=== PATIENT | female | born 1990 | race Two or more races ===

== ENCOUNTER 2020-02-24 12:00 | Outpatient (RCR) | payer MEDICAID, SELFPAY | END 2020-04-06 08:32 | disposition other institution (70) | LOC: HO.PT 12:00 | PROVIDERS: PCP Family Medicine; Visit Provider Physician Assistant | DX: M51.26 Other intervertebral disc displacement, lumbar region (principal) | CPT/HCPCS: 97110; 97112; 97161; 97530 ==

== ENCOUNTER 2020-05-06 20:09 | Emergency (ER) | payer MEDICAID, SELFPAY ==
--- NOTE | ~2020-05-06 | XR_ITS ---
EXAMINATION: XR HAND, RIGHT CLINICAL INFORMATION: Right thumb pain COMPARISON: None TECHNIQUE: PA, lateral, and oblique views of the right hand. FINDINGS: There is no fracture or dislocation. Alignment is anatomic. Joint spaces are maintained. The soft tissues are unremarkable. No radiopaque foreign body. XR/XR hand RT min 3V IMPRESSION: Normal right hand.
[2020-05-06 20:13] VITALS: BP 126/85; PULSE 84; RESP 18; TEMP 36.8; O2SAT 100; BMI 25.6
--- NOTE | 2020-05-06 22:21 | ED_ITS ---
HPI - General Adult General Chief complaint: General Medical Stated complaint: finger pain Time Seen by Provider: 05/06/20 22:11 Source: patient Mode of arrival: ambulatory Limitations: no limitations History of Present Illness HPI narrative: Patient comes to the emergency room complaining of right thumb pain for a week. Patient states she fell, landed on her thumb, it has been hurting since then, worse with movement. Patient denies redness, no fever, no numbness MD complaint: Thumb pain Related Data Allergies Allergy/AdvReac Type Severity Reaction Status Date / Time aspirin [Aspirin] Allergy Intermediate GI UPSET Unverified 11/26/19 17:04 cinnamon [Cinnamon] Allergy Unknown RASH ITCH Unverified 11/26/19 17:04 naproxen [From NAPROSYN] AdvReac Unknown GI UPSET Unverified 11/26/19 17:04 cinnamon Allergy Unknown rash Uncoded 08/20/18 00:00 Motrin Allergy Unknown Uncoded 05/27/19 00:00 Review of Systems Review of Systems: Constitutional : No Weight loss, No Fever, No Chills, No Night Sweats, No Fatigue, No Malaise ENT/Mouth : No Hearing loss, No Ear Pain, No Nasal Congestion, No Sinus Pain, No Hoarseness, No sore throat, No Rhinorrhea, No Swallowing Difficulty Eyes: No Eye Pain, No Swelling, No Redness, No Foreign Body, No Discharge, No Vision Changes Cardiovascular : No Chest Pain, No SOB, No Dyspnea on Exertion, No Orthopnea, No Edema, No Palpitations Respiratory : No Cough, No Sputum, No Wheezing, No Smoke Exposure, No Dyspnea Gastrointestinal : No Nausea, No Vomiting, No Diarrhea, No Constipation, No abdominal Pain, No Hematochezia, No Melena Genitourinary : no irregular bleeding, No Dysuria, No Urinary Frequency, No Hematuria, No Urinary Incontinence, No Urgency, No Flank Pain, No Urinary Flow Changes, No Hesitancy Musculoskeletal : Right thumb pain, No Myalgias, No Joint Swelling Skin : No Skin Lesions, No rash Neuro : No Weakness, No Numbness, No Paresthesias, No Loss of Consciousness, No Dizziness, No Headache Psych : No Anxiety/Panic, No Depression, No SI/HI/AH/VH, No Social Issues, Heme/Lymph: No Bruising, No Bleeding,No Lymphadenopathy Endocrine : No Polyuria, No Polydipsia, No Temperature Intolerance [facility] Social History Social History Advance Directives: No Advance Directives Information Provided: No Physical Exam Vital Signs: Vital Signs: Last Vital Signs Temp 98.2 F 05/06/20 20:13 Pulse 84 05/06/20 20:13 Resp 18 05/06/20 20:13 BP 126/85 05/06/20 20:13 Pulse Ox 100 05/06/20 20:13 Body Mass Index 25.6 Appearance: Alert. Oriented X3. No acute distress. Eyes: Pupils equal, round and reactive to light. ENT: Pharynx normal. Neck: Normal inspection. Neck supple. No lymph nodes noted. No crepitus CVS: Normal heart rate and rhythm. Pulses normal. Normal S1 and S2 Respiratory: No respiratory distress. Breath sounds normal. No Wheezing. No ra les Abdomen: Soft and nontender. No rigidity. No distention. good BS x4 Skin: Skin warm and dry. Normal skin color. Normal skin turgor. Extremities: No lower extremity edema. Patient is able to flex and extend all fingers, patient does have right snuffbox tenderness. Neuro: Oriented X 3. No motor deficit. No sensory deficit. Moving all extermities. No slurred speech. Course Course Course Narrative: Patient's x-ray is negative, however she does have right snuffbox tenderness. I discussed with the patient to follow-up with her primary care physician and Orthopedics. Patient was given a thumb spica splint. Patient may need x-rays again in a few days. Medical Decision Making Imaging Data Hand x-ray: Radiologist's impression: FINDINGS: There is no fracture or dislocation. Alignment is anatomic. Joint spaces are maintained. The soft tissues are unremarkable. No radiopaque foreign body. XR/XR hand RT min 3V IMPRESSION: Normal right hand. Discharge Plan Discharge Clinical Impression: Pain of right thumb Patient Disposition: Home, Self-Care Instructions: Finger Sprain (ED) Additional Instructions: Please follow-up with your primary care physician tomorrow. If you have any worsening or new symptoms, please return to the emergency room or call 911 Referrals: Lindsay Espitia PA-C [Physician Irrigationist] - 2 days
== END 2020-05-06 22:48 | disposition home or self-care (01) ==
PROVIDERS: Emergency Provider Emergency Medicine; PCP Family Medicine
DX: M79.644 Pain in right finger(s) (principal)
CPT/HCPCS: 29130; 73130; 99283

== ENCOUNTER 2020-05-16 12:43 | Outpatient (REF) | payer MEDICAID, SELFPAY ==
--- NOTE | ~2020-05-16 | XR_ITS ---
EXAMINATION: XR WRIST, RIGHT CLINICAL INFORMATION: Pain in the right wrist COMPARISON: 05/06/2020 TECHNIQUE: 4 views of the right wrist FINDINGS: There is no fracture or dislocation. The carpal rows are well aligned. Joint spaces are maintained. The soft tissues are unremarkable. XR/XR wrist RT w scaphoid IMPRESSION: Unremarkable right wrist radiographs.
== END 2020-05-16 12:44 | disposition home or self-care (01) ==
LOC: HO.HOSX 12:43
PROVIDERS: PCP Family Medicine; Visit Provider Orthopaedic Surgery
DX: M25.531 Pain in right wrist (principal); M79.644 Pain in right finger(s)
CPT/HCPCS: 73110; 99202

== ENCOUNTER 2020-06-06 12:46 | Outpatient (REF) | payer MEDICAID, SELFPAY ==
--- NOTE | ~2020-06-06 | XR_ITS ---
EXAMINATION: XR HAND, RIGHT CLINICAL INFORMATION: Pain COMPARISON: 05/06/2020 TECHNIQUE: PA, lateral, and oblique views of the right hand. FINDINGS: The bones and soft tissues are normal. No fracture. Alignment is anatomic. Joint spaces are maintained. No erosions or soft tissue calcifications. XR/XR hand RT min 3V IMPRESSION: Normal right hand.
== END 2020-06-06 12:47 | disposition home or self-care (01) ==
LOC: HO.HOSX 12:46
PROVIDERS: PCP Family Medicine; Visit Provider Orthopaedic Surgery
DX: M25.531 Pain in right wrist (principal); M79.644 Pain in right finger(s)
CPT/HCPCS: 73130; 99212

== ENCOUNTER 2021-12-14 16:21 | Outpatient (REF) | payer MEDICAID, SELFPAY ==
--- NOTE | ~2021-12-14 | MR_ITS ---
EXAMINATION: MR LUMBAR SPINE WITHOUT AND WITH CONTRAST CLINICAL INFORMATION: L4-L5 discectomy with severe worsening low back pain. COMPARISON: Lumbar spine MRI 08/05/2019. TECHNIQUE: MRI of the lumbar spine was obtained using routine sequences without and with intravenous contrast. A total of 6.5 mL Gadavist was intravenously administered. FINDINGS: The lumbar vertebral bodies maintain normal heights and alignment. There is moderate disc height loss at L4-L5 with degenerative endplate changes including mild amount of marrow edema. The remainder the disc heights appear well preserved. The distal spinal cord appears normal. The conus medullaris terminates normally at the L1 level. There is no abnormal cauda equina nerve root enhancement. The extraspinal soft tissues are within normal limits. SPINAL LEVELS: L1-L2: No posterior disc abnormality. No spinal canal or neural foraminal stenosis. L2-L3: No posterior disc abnormality. No spinal canal or neural foraminal stenosis. L3-L4: Mild disc bulging. No spinal canal or neural foraminal stenosis. L4-L5: Disc bulging with broad-based central protrusion causing focal indentation of the ventral thecal sac with compression of the bilateral traversing L5 nerve roots in the subarticular zones. Mild to moderate spinal canal stenosis. Bilateral facet arthropathy. Mild narrowing of the neural foramina without foraminal nerve root compression. L5-S1: Disc bulging with moderate facet arthropathy. No spinal canal or neural foraminal stenosis. MR/MR lumbar spine wo/w con IMPRESSION: At L4-L5 there is recurrent broad-based central protrusion causing focal indentation on the ventral thecal sac and compression of the bilateral traversing L5 nerve roots in the subarticular zones. Mild disc bulging seen at L3-L4 and L5-S1 without spinal canal stenosis or nerve root compression.
== END 2021-12-14 16:22 | disposition home or self-care (01) ==
LOC: HO.MRI 16:21
PROVIDERS: PCP Family Medicine; Visit Provider Family Medicine
DX: M54.50 Low back pain, unspecified (principal)
CPT/HCPCS: 72158; A9585

== ENCOUNTER 2022-07-10 11:44 | Emergency (ER) | payer MEDICAID, SELFPAY ==
--- NOTE | ~2022-07-10 | US_ITS ---
EXAMINATION: US ABDOMEN LIMITED CLINICAL INFORMATION: Right upper quadrant pain. COMPARISON: Ultrasound of abdomen 09/29/2008 TECHNIQUE: Real-time imaging of the right upper quadrant abdominal viscera. FINDINGS: PANCREAS: Normal. LIVER: Normal. The liver is normal in size. The liver contour is normal. Parenchymal echogenicity is normal. No focal hepatic lesion. There is no intrahepatic biliary duct dilatation seen. GALLBLADDER: There is a 3 mm polyp in the fundus of uterus. No gallstone or sludge within the gallbladder. No gallbladder wall thickening or pericholecystic fluid. Negative ultrasound Gloria's sign. COMMON BILE DUCT: Normal in caliber measuring 0.2 cm in diameter. RIGHT KIDNEY: Normal. No hydronephrosis. No renal calculi or focal parenchymal lesions. The kidney measures 9.9 cm in maximum dimension. FREE FLUID: None. US/US abdomen limited IMPRESSION: No acute abnormality. No gallstone or acute change of gallbladder wall. There is a 3 mm polyp in the fundus of gallbladder.
[2022-07-10 11:50] VITALS: BP 125/85; PULSE 63; O2SAT 98
[2022-07-10 11:52] VITALS: BP 110/69; PULSE 83; RESP 18; TEMP 36.9; O2SAT 98; BMI 25.8
--- NOTE | 2022-07-10 11:52 | ED.NAVMDI ---
HPI - Nausea/Vomiting/Diarrhea General Chief complaint: Nausea/Vomiting/Diarrhea <WOODY Wen Last Filed: 07/10/22 11:55> Stated complaint: nausea vomiting x 2 days per ems <WOODY Wen Last Filed: 07/10/22 11:55> Time Seen by Provider: 07/10/22 14:12 <WOODY Wen Last Filed: 07/10/22 11:55> Source: patient <WOODY Verma Last Filed: 07/10/22 18:40> Mode of arrival: ambulatory <WOODY Verma Last Filed: 07/10/22 18:40> History of Present Illness HPI Narrative: 31-year-old female with no significant past medical history presenting to the ED complaining of epigastric abdominal pain, nausea, vomiting, and inability to tolerate p.o. x 2 days. Pain described as burning. Reports decreased urine output. Denies known fever, diarrhea, constipation, dysuria/hematuria, recent travel, suspicious food intake, recent antibiotics <WOODY Verma Last Filed: 07/10/22 18:40> MD elicited complaint: nausea, vomiting and abdominal pain <WOODY Verma Last Filed: 07/10/22 18:40> Related Data Home medications: Home Medications Medication Instructions Recorded Confirmed oxycodone 5 mg capsule 5 mg PO BID PRN 05/16/20 Previous Rx's Medication Instructions Recorded ondansetron 4 mg disintegrating 4 mg PO Q8H PRN nausea and 07/10/22 tablet vomiting #10 tabs <WOODY Wen Last Filed: 07/10/22 11:55> Allergies/Adverse reactions: Allergies Allergy/AdvReac Type Severity Reaction Status Date / Time aspirin [Aspirin] Allergy Intermediate GI UPSET Verified 05/16/20 13:15 cinnamon [Cinnamon] Allergy Unknown RASH ITCH Verified 05/16/20 13:15 naproxen [From NAPROSYN] AdvReac Unknown GI UPSET Verified 05/16/20 13:15 cinnamon Allergy Unknown rash Uncoded 08/20/18 00:00 Motrin Allergy Unknown nausea Uncoded 05/16/20 13:15 <WOODY Wen Last Filed: 07/10/22 11:55> Review of Systems Review of Systems: Constitutional: No Fever, + Chills, No Night Sweats, No Fatigue, No Malaise ENT/Mouth: No Ear Pain, No sore throat, No Rhinorrhea, No Swallowing Difficulty Eyes: No Eye Pain, No Swelling, No Redness, No Vision Changes Cardiovascular: No Chest Pain, No SOB Respiratory: No Cough, No Sputum, No Dyspnea Gastrointestinal: + Nausea, + Vomiting, No Diarrhea, No Constipation, + Abdominal pain Genitourinary: No irregular bleeding, No Dysuria, No Urinary Frequency, No Hematuria, No Urinary Incontinence/retention, No Flank Pain Musculoskeletal: No joint pain, No Myalgias, No Joint Swelling Skin: No Skin Lesions, No rash Neuro: No Weakness, No Numbness, No Dizziness, No Headache <WOODY Verma - Last Filed: 07/10/22 18:40> Yes all other systems are reviewed and are negative <WOODY Verma - Last Filed: 07/10/22 18:40> Constitutional: Constitutional: Reports as per HPI <WOODY Verma - Last Filed: 07/10/22 18:40> [facility], [facility] Past Medical History Attestation statement: The following information was validated with the patient. 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 <WOODY Wen - Last Filed: 07/10/22 11:55> Physical Exam Vital Signs: Vital Signs: Last Vital Signs Temp 98.5 F 07/10/22 11:52 Pulse 83 07/10/22 11:52 Resp 18 07/10/22 11:52 BP 110/69 07/10/22 11:52 Pulse Ox 98 07/10/22 11:52 O2 Del Method Room Air 07/10/22 11:52 BMI result Body Mass Index 25.8 <WOODY Wen - Last Filed: 07/10/22 11:55> Vital Signs: Last Vital Signs Temp 98.5 F 07/10/22 11:52 Pulse 83 07/10/22 11:52 Resp 18 07/10/22 11:52 BP 110/69 07/10/22 11:52 Pulse Ox 98 07/10/22 11:52 O2 Del Method Room Air 07/10/22 11:52 BMI result Body Mass Index 25.8 <WOODY Verma Last Filed: 07/10/22 18:40> Const: General: cooperative, healthy appearing and no acute distress <WOODY Verma Last Filed: 07/10/22 18:40> Orientation/consciousness: patient oriented x3 <WOODY Verma Last Filed: 07/10/22 18:40> Limitations: no limitations <WOODY Verma Last Filed: 07/10/22 18:40> HEENT: Head: Yes normal to inspection and Yes atraumatic <WOODY Verma Last Filed: 07/10/22 18:40> Ears: hearing grossly normal bilaterally <WOODY Verma Last Filed: 07/10/22 18:40> General nose exam: Normal external nose present <WOODY Verma Last Filed: 07/10/22 18:40> Face and sinus: Yes normal facial exam <WOODY Verma Last Filed: 07/10/22 18:40> Eyes: General: appearance normal, both eyes and all related structures <WOODY Verma Last Filed: 07/10/22 18:40> EOM: EOMs intact bilaterally <WOODY Verma Last Filed: 07/10/22 18:40> Neck: Neck: Yes normal visual inspection and Yes no meningeal signs <WOODY Verma Last Filed: 07/10/22 18:40> Resp: Effort & Inspection: normal respiratory effort and no respiratory distress <WOODY Verma Last Filed: 07/10/22 18:40> Auscultation: clear to auscultation bilaterally <WOODY Verma Last Filed: 07/10/22 18:40> Cardio: Rate: regular rate <WOODY Verma Last Filed: 07/10/22 18:40> Heart sounds: S1 normal heart sound present and S2 normal heart sound present <WOODY Verma - Last Filed: 07/10/22 18:40> GI: Inspection: Yes normal to inspection <WOODY Verma - Last Filed: 07/10/22 18:40> Palpation (GI): Soft to palpation, Tenderness to palpation present (GI) in the epigastrum and in the RUQ; with no rebound tenderness, no guarding and not rigid <WOODY Verma - Last Filed: 07/10/22 18:40> : General: Yes no CVA tenderness <WOODY Verma - Last Filed: 07/10/22 18:40> Back/Spine/Pelvis: Back: no CVA tenderness <WOODY Verma - Last Filed: 07/10/22 18:40> Skin: Rashes: no rashes <WOODY Verma - Last Filed: 07/10/22 18:40> Wounds: no wounds <WOODY Verma - Last Filed: 07/10/22 18:40> Neuro: General: patient oriented x3, tone normal and no meningeal signs <WOODY Verma - Last Filed: 07/10/22 18:40> Gait exam (Neuro): Normal gait present <WOODY Verma - Last Filed: 07/10/22 18:40> Extrem: General: Yes normal to inspection <WOODY Vemra - Last Filed: 07/10/22 18:40> Course Course Course Narrative: RME - 31 yo female with history of tubal ligation presents to the ER from EMS for evaluation of nausea, vomiting and epigastric pain for the last 2 days. Unable to tolerate PO. Pain is 8/10 and described as burning. She reports no UOP since yesterday. Plan: basic labs and IVF, anti-emetics and GI cocktail <WOODY Wen Last Filed: 07/10/22 11:55> RME - 31 yo female with history of tubal ligation presents to the ER from EMS for evaluation of nausea, vomiting and epigastric pain for the last 2 days. Unable to tolerate PO. Pain is 8/10 and described as burning. She reports no UOP since yesterday. Plan: basic labs and IVF, anti-emetics and GI cocktail -1638--no leukocytosis. Labs otherwise unremarkable US abdomen limited IMPRESSION: No acute abnormality. No gallstone or acute change of gallbladder wall. There is a 3 mm polyp in the fundus of gallbladder. > on re-evaluation patient reports Nimisha Poppy made her nauseous, however, was able to tolerate p.o. water and crackers. States still unable to provide urine. Bladder scan with 188 cc >> will give additional 500 cc IVF and re-evaluate -hCG negative -1900--ED care transferred to WOODY Salas pending UA, re-evaluation, and anticipated DC home <WOODY Verma - Last Filed: 07/10/22 18:40> Medications Administered Discontinued Medications Generic Name Dose Route Start Last Admin Trade Name Freq PRN Reason Stop Dose Admin Al Hydroxide/Mg Hydroxide 30 ml 07/10/22 16:06 07/10/22 16:33 Magnesium Hydrox/Alum Hydrox 30 Ml Oral.Susp PO 07/10/22 16:07 30 ml ONCE ONE Administration Famotidine 20 mg 07/10/22 16:06 07/10/22 16:31 Famotidine/Pf 20 Mg/2 Ml Vial IVPUSH 07/10/22 16:07 20 mg ONCE ONE Administration Sodium Chloride 1,000 mls @ 999 mls/hr 07/10/22 12:00 07/10/22 16:01 Ns IVCONT 07/10/22 13:00 Infused .Q1H1M MARTINEZ Infusion Sodium Chloride 1,000 mls @ 999 mls/hr 07/10/22 16:15 07/10/22 17:59 Ns IV 07/10/22 17:15 Infused .Q1H1M MARTINEZ Infusion Sodium Chloride 500 mls @ 999 mls/hr 07/10/22 17:45 07/10/22 18:00 Ns IV 07/10/22 18:15 999 mls/hr .Q31M MARTINEZ Administration Ketorolac Tromethamine 15 mg 07/10/22 16:06 07/10/22 16:31 Ketorolac Tromethamine 15 Mg/Ml Vial IVPUSH 07/10/22 16:07 15 mg ONCE ONE Administration Metoclopramide HCl 10 mg 07/10/22 18:02 07/10/22 18:13 Metoclopramide Hcl 10 Mg/2 Ml Vial IVPUSH 07/10/22 18:03 10 mg ONCE ONE Administration Ondansetron HCl 4 mg 07/10/22 11:55 07/10/22 14:42 Ondansetron Hcl 4 Mg/2 Ml Vial IVPUSH 07/10/22 11:56 4 mg ONCE ONE Administration <WOODY Wen - Last Filed: 07/10/22 11:55> Medications Administered Discontinued Medications Generic Name Dose Route Start Last Admin Trade Name Genet PRN Reason Stop Dose Admin Al Hydroxide/Mg Hydroxide 30 ml 07/10/22 16:06 07/10/22 16:33 Magnesium Hydrox/Alum Hydrox 30 Ml Oral.Susp PO 07/10/22 16:07 30 ml ONCE ONE Administration Famotidine 20 mg 07/10/22 16:06 07/10/22 16:31 Famotidine/Pf 20 Mg/2 Ml Vial IVPUSH 07/10/22 16:07 20 mg ONCE ONE Administration Sodium Chloride 1,000 mls @ 999 mls/hr 07/10/22 12:00 07/10/22 16:01 Ns IVCONT 07/10/22 13:00 Infused .Q1H1M MARTINEZ Infusion Sodium Chloride 1,000 mls @ 999 mls/hr 07/10/22 16:15 07/10/22 17:59 Ns IV 07/10/22 17:15 Infused .Q1H1M MARTINEZ Infusion Sodium Chloride 500 mls @ 999 mls/hr 07/10/22 17:45 07/10/22 18:00 Ns IV 07/10/22 18:15 999 mls/hr .Q31M MARTINEZ Administration Ketorolac Tromethamine 15 mg 07/10/22 16:06 07/10/22 16:31 Ketorolac Tromethamine 15 Mg/Ml Vial IVPUSH 07/10/22 16:07 15 mg ONCE ONE Administration Metoclopramide HCl 10 mg 07/10/22 18:02 07/10/22 18:13 Metoclopramide Hcl 10 Mg/2 Ml Vial IVPUSH 07/10/22 18:03 10 mg ONCE ONE Administration Ondansetron HCl 4 mg 07/10/22 11:55 07/10/22 14:42 Ondansetron Hcl 4 Mg/2 Ml Vial IVPUSH 07/10/22 11:56 4 mg ONCE ONE Administration <WOODY Verma Last Filed: 07/10/22 18:40> Medical Decision Making Medical Decision Making MDM Narrative: 31-year-old female with no significant past medical history presenting to the ED complaining of epigastric abdominal pain, nausea, vomiting, and inability to tolerate p.o. x 2 days. On exam vital signs stable, NAD, nontoxic appearing, abdomen soft with epigastric/RUQ tenderness, no rebound or guarding, no CVAT. Concern for cholecystitis/lithiasis vs biliary colic vs pancreatitis vs GERD/gastritis. Lower suspicion for ACS. Rule out dehydration/metabolic abnormalities. Low suspicion for appendicitis/diverticulitis or renal stone or ovarian pathology at this time Plan: Labs, UA, IVF, abdomen ultrasound, antiemetics, IVF, p.o. challenge Please refer to course for remaining clinical decision making, interpretation of labs/imaging results, and discussions with consultants and/or family members. <WOODY Verma Last Filed: 07/10/22 18:40> Differential Diagnosis Differential Diagnoses: The differential diagnosis associated with the presentation includes <WOODY Verma - Last Filed: 07/10/22 18:40> As above <WOODY Verma - Last Filed: 07/10/22 18:40> Admission/Observation Consideration of admission/observation: Escalation of care including admission/observation considered <WOODY Verma - Last Filed: 07/10/22 18:40> Lab Data [facility] Lab Attestation statement: I reviewed the patient's lab results. <WOODY Verma Last Filed: 07/10/22 18:40> Result Diagrams: 07/10/22 13:57 07/10/22 13:57 <WOODY Wen - Last Filed: 07/10/22 11:55> Labs: Lab Results 07/10/22 07/10/22 Range/Units 13:57 13:57 WBC 7.6 (4.8-10.8) X10*3/uL RBC 4.12 L (4.20-5.50) X10*6/uL Hgb 12.6 (12.0-16.0) g/dl Hct 38.1 (37.0-47.0) % MCV 92.5 (80.0-98.0) fL MCH 30.6 (27.0-33.0) pg MCHC 33.1 (31.0-35.0) g/dl RDW 14.1 (11.0-16.0) % Plt Count 317 (160-400) X10*3/uL MPV 9.3 L (9.4-12.3) fL Immature Gran % (Auto) 0.3 (0.0-0.4) % Neut % (Auto) 69.5 (45-73) % Lymph % (Auto) 23.4 (20-40) % [place] % (Auto) 6.5 (2-11) % Eos % (Auto) 0.0 (0-4) % Baso % (Auto) 0.3 (0-2) % Lymph # (Auto) 1.8 (1.2-4.9) X10*3/uL [place] # (Auto) 0.5 (0.1-1.2) X10*3/uL Eos # (Auto) 0.0 (0.0-0.4) X10*3/uL Baso # (Auto) 0.0 (0.0-0.2) X10*3/uL Abs Immat Gran (auto) 0.02 (0.00-0.03) X10*3/uL Absolute Neuts (auto) 5.3 (2.0-8.3) x10*3/uL Absolute Nucleated RBC 0.000 (0.0-0.012) X10*3/uL Nucleated RBC % (auto) 0.0 (0.0-0.2) /100WBC Sodium 141 (135-145) mmol/L Potassium 4.0 (3.3-5.1) mmol/L Chloride 108 (96-108) mmol/L Carbon Dioxide 26 (22-29) mmol/L Anion Gap 11 L (12-20) BUN 9 (9-16) mg/dL Creatinine 0.72 (0.5-1.4) mg/dL Estim Creat Clear Calc 97.6 Estimated GFR > 60 Random Glucose 108 (60-115) mg/dL Calcium 9.6 (8.4-10.2) mg/dL Magnesium 2.1 (1.6-2.6) mg/dL Total Bilirubin 0.9 (0.0-1.0) mg/dL Direct Bilirubin 0.3 (0.0-0.5) mg/dL AST 16 (5-31) U/L ALT 14 (0-31) U/L Alkaline Phosphatase 45 (39-117) U/L Total Protein 7.2 (6.5-8.0) g/dL Albumin 4.3 (3.5-5.0) g/dL Lipase 70 (8-78) U/L Beta HCG, Quant < 2 mIU/mL <WOODY Wen - Last Filed: 07/10/22 11:55> Lab Results 07/10/22 07/10/22 Range/Units 13:57 13:57 WBC 7.6 (4.8-10.8) X10*3/uL RBC 4.12 L (4.20-5.50) X10*6/uL Hgb 12.6 (12.0-16.0) g/dl Hct 38.1 (37.0-47.0) % MCV 92.5 (80.0-98.0) fL MCH 30.6 (27.0-33.0) pg MCHC 33.1 (31.0-35.0) g/dl RDW 14.1 (11.0-16.0) % Plt Count 317 (160-400) X10*3/uL MPV 9.3 L (9.4-12.3) fL Immature Gran % (Auto) 0.3 (0.0-0.4) % Neut % (Auto) 69.5 (45-73) % Lymph % (Auto) 23.4 (20-40) % [place] % (Auto) 6.5 (2-11) % Eos % (Auto) 0.0 (0-4) % Baso % (Auto) 0.3 (0-2) % Lymph # (Auto) 1.8 (1.2-4.9) X10*3/uL [place] # (Auto) 0.5 (0.1-1.2) X10*3/uL Eos # (Auto) 0.0 (0.0-0.4) X10*3/uL Baso # (Auto) 0.0 (0.0-0.2) X10*3/uL Abs Immat Gran (auto) 0.02 (0.00-0.03) X10*3/uL Absolute Neuts (auto) 5.3 (2.0-8.3) x10*3/uL Absolute Nucleated RBC 0.000 (0.0-0.012) X10*3/uL Nucleated RBC % (auto) 0.0 (0.0-0.2) /100WBC Sodium 141 (135-145) mmol/L Potassium 4.0 (3.3-5.1) mmol/L Chloride 108 (96-108) mmol/L Carbon Dioxide 26 (22-29) mmol/L Anion Gap 11 L (12-20) BUN 9 (9-16) mg/dL Creatinine 0.72 (0.5-1.4) mg/dL Estim Creat Clear Calc 97.6 Estimated GFR > 60 Random Glucose 108 (60-115) mg/dL Calcium 9.6 (8.4-10.2) mg/dL Magnesium 2.1 (1.6-2.6) mg/dL Total Bilirubin 0.9 (0.0-1.0) mg/dL Direct Bilirubin 0.3 (0.0-0.5) mg/dL AST 16 (5-31) U/L ALT 14 (0-31) U/L Alkaline Phosphatase 45 (39-117) U/L Total Protein 7.2 (6.5-8.0) g/dL Albumin 4.3 (3.5-5.0) g/dL Lipase 70 (8-78) U/L Beta HCG, Quant < 2 mIU/mL <WOODY Verma - Last Filed: 07/10/22 18:40> Radiology Impression Discussion of test interpretation with radiology: I have reviewed the radiologist's reading. <WOODY Verma - Last Filed: 07/10/22 18:40> External Record Review External record reviewed: Inpatient record, Office record, Outpatient record, Prior outpatient labs, Prior outpatient radiology, Primary care record and Outside ED record <WOODY Verma - Last Filed: 07/10/22 18:40> Discharge Plan Discharge Clinical Impression: Nausea & vomiting <WOODY Wen - Last Filed: 07/10/22 11:55> Patient Disposition: Still a Patient <WOODY Wen - Last Filed: 07/10/22 11:55> Instructions: Acute Nausea and Vomiting (ED) <WOODY Wen - Last Filed: 07/10/22 11:55> Additional Instructions: Your blood work is reassuring Practice a bland diet Your ultrasound also does not show any acute abnormality, you do have a small polyp in her gallbladder Zofran is for nausea, take as needed Practice of bland diet If her unable to eat or drink, persistent nausea/vomiting or fever return to the ED Follow-up with your doctor <WOODY Wen - Last Filed: 07/10/22 11:55> Prescriptions: New ondansetron 4 mg tablet,disintegrating 4 mg PO Q8H PRN (Reason: nausea and vomiting) Qty: 10 0RF <WOODY Wen - Last Filed: 07/10/22 11:55> Referrals: Karime Olguin DO [Primary Care Provider] - 3 days <WOODY Wen - Last Filed: 07/10/22 11:55>
[2022-07-10 14:01] LABS: MANUAL DIFF FLAG NO
[2022-07-10 14:04] LABS: Basophils Percent Auto 0.3 % (0-2); Hematocrit 38.1 % (37.0-47.0); Hemoglobin 12.6 g/dl (12.0-16.0); Imm Gran Abs Auto 0.02 X10*3/uL (0.00-0.03); Imm Gran Pct Auto 0.3 % (0.0-0.4); Lymphocytes Absolute Auto 1.8 X10*3/uL (1.2-4.9); Lymphocytes Percent Auto 23.4 % (20-40); Mean Corpuscular HGB Conc 33.1 g/dl (31.0-35.0); Mean Corpuscular Hemoglobin 30.6 pg (27.0-33.0); Mean Corpuscular Volume 92.5 fL (80.0-98.0); Mean Platelet Volume 9.3 fL (9.4-12.3); Monocytes Absolute Auto 0.5 X10*3/uL (0.1-1.2); Monocytes Percent Auto 6.5 % (2-11); Neutrophils Absolute Auto 5.3 x10*3/uL (2.0-8.3); Neutrophils Percent Auto 69.5 % (45-73); Platelet Count 317 X10*3/uL (160-400); Red Blood Count 4.12 X10*6/uL (4.20-5.50); Red Cell Distribution Width 14.1 % (11.0-16.0); White Blood Count 7.6 X10*3/uL (4.8-10.8)
[2022-07-10 14:20] LABS: Alanine Aminotransferase 14 U/L (0-31); Albumin Level 4.3 g/dL (3.5-5.0); Alkaline Phosphatase 45 U/L (39-117); Anion Gap 11 (12-20); Aspartate Amino Transferase 16 U/L (5-31); Bilirubin Direct 0.3 mg/dL (0.0-0.5); Bilirubin Total 0.9 mg/dL (0.0-1.0); Blood Urea Nitrogen 9 mg/dL (9-16); Calcium 9.6 mg/dL (8.4-10.2); Carbon Dioxide 26 mmol/L (22-29); Chloride 108 mmol/L (96-108); Creatinine Clr Calc Pharmacy 97.6; Estimated Glomerular Filt Rate > 60; Glucose Random 108 mg/dL (60-115); Lipase 70 U/L (8-78); Magnesium 2.1 mg/dL (1.6-2.6); Sodium 141 mmol/L (135-145); Total Protein 7.2 g/dL (6.5-8.0)
[2022-07-10] MEDS: 0.9 % Sodium Chloride 1,000 ML 999 ML IVCONT (14:32)
[2022-07-10] MEDS: ondansetron HCL 4 MG/2 ML VIAL IVPUSH (14:42)
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
[2022-07-10] MEDS: Ketorolac Tromethamine 15 MG/ML VIAL IVPUSH (16:31)
[2022-07-10] MEDS: Famotidine/PF 20 MG/2 ML VIAL IVPUSH (16:31)
[2022-07-10] MEDS: Magnesium Hydrox/Alum Hydrox 30 ML ORAL.SUSP PO (16:33)
[2022-07-10] MEDS: 0.9 % Sodium Chloride 1,000 ML 999 ML IV (16:33)
[2022-07-10] MEDS: 0.9 % Sodium Chloride 500 ML 999 ML IV (18:00)
[2022-07-10] MEDS: Metoclopramide HCl 10 MG/2 ML VIAL IVPUSH (18:13)
[2022-07-10 18:36] LABS: HCG Quantitative < 2 mIU/mL
[2022-07-10 19:08] LABS: Appearance Urine Cloudy; Color Urine Yellow; Glucose Urine UA Negative (Negative); Leukocyte Esterase Urine Trace (Negative); Nitrite Urine Negative (Negative); Specific Gravity - Urine 1.025 (1.005-1.025); UMIC TRIGGER UACC YES; Urine Blood Negative (Negative); Urine Ketones 15 mg/dL (Negative); Urine Protein Trace mg/dL (Neg-Trace)
[2022-07-10 19:15] LABS: Bacteria Urine 2+ (None Seen); Hyaline Casts Urine 0-2 /LPF (0-2); WBC Urine 0-5 /HPF (0-5)
== END 2022-07-10 19:39 | disposition still patient (30) ==
PROVIDERS: Physician Assistant; Emergency Provider Emergency Medicine; PCP Family Medicine
DX: R11.2 Nausea with vomiting, unspecified (principal); R30.0 Dysuria; R19.7 Diarrhea, unspecified; R10.13 Epigastric pain; Z79.899 Other long term (current) drug therapy
CPT/HCPCS: 36415; 51798; 76705; 80048; 80076; 81001; 83690; 83735; 84702; 85025; 96361; 96374; 96375; 99284; J1885; J2405; J2765

== ENCOUNTER 2022-07-13 10:07 | Emergency (ER) | payer MEDICAID, SELFPAY ==
--- NOTE | ~2022-07-13 | CT_ITS ---
EXAMINATION: CT ABDOMEN AND PELVIS WITH CONTRAST CLINICAL INFORMATION: Abdominal pain COMPARISON: 03/25/2013 TECHNIQUE: Multidetector volumetric images were obtained from the superior aspect of the liver through the pubic symphysis following administration 85 mL of Omnipaque 350 intravenous contrast. Sagittal and coronal reformatted images were obtained on the technologist's workstation. Oral contrast: No This CT examination was performed using dose optimization techniques as appropriate, variously including the following: *Automated exposure control *Adjustment of mA and/or kV according to patient size (this includes techniques or standardized protocols for targeted exams where dose is matched to indication/reason for exam; i.e. extremities or head) *Use of iterative reconstruction technique DLP: 432.91 mGy-cm FINDINGS: LUNG BASES: The visualized lung bases are unremarkable. LIVER, GALLBLADDER, AND BILIARY TREE: The liver is normal in size, shape, and attenuation. No focal hepatic lesion or biliary ductal dilatation is present. The gallbladder is unremarkable with no evidence of radiopaque gallstones, gallbladder wall thickening, or obvious pericholecystic inflammatory changes. PANCREAS: Unremarkable. SPLEEN: Unremarkable. ADRENAL GLANDS: Unremarkable. KIDNEYS AND URETERS: The kidneys are normal in size, shape, and attenuation. No hydronephrosis, hydroureter, or calculi seen. No perinephric stranding. BLADDER: Unremarkable. GASTROINTESTINAL TRACT: The small and large bowel are unremarkable. The appendix is unremarkable. ABDOMINAL WALL: No significant hernia is appreciated. LYMPH NODES: Normal. VASCULAR: Unremarkable. PELVIC VISCERA: There appears to be a ruptured follicle the right adnexa. There is a small amount of fluid in the right pelvis, and the cul-de-sac, slightly greater than expected, but perhaps physiologic. The fluid measures 25-26 Hounsfield units. OSSEOUS STRUCTURES: Unremarkable. CT/CT abdomen pelvis w IV con IMPRESSION: 1. Small amount of fluid in the right pelvis and cul-de-sac, slightly greater than expected. However, in conjunction with a crenulated, perhaps ruptured right adnexal follicle, the fluid is statistically likely to be physiologic. Correlation with menstrual history, location and onset of pain is recommended. If indicated, transvaginal ultrasound might be of benefit to better assess the right adnexa and the fluid. Fleischner guidelines were followed.
[2022-07-13 10:15] VITALS: BP 125/85; PULSE 69; RESP 16; TEMP 36.7; O2SAT 100; BMI 25.8
[2022-07-13 10:28] LABS: MANUAL DIFF FLAG NO
[2022-07-13 10:30] LABS: Basophils Percent Auto 0.2 % (0-2); Eosinophils Absolute Auto 0.1 X10*3/uL (0.0-0.4); Eosinophils Percent Auto 0.6 % (0-4); Hematocrit 36.4 % (37.0-47.0); Hemoglobin 12.3 g/dl (12.0-16.0); Imm Gran Abs Auto 0.03 X10*3/uL (0.00-0.03); Imm Gran Pct Auto 0.3 % (0.0-0.4); Lymphocytes Absolute Auto 1.8 X10*3/uL (1.2-4.9); Lymphocytes Percent Auto 18.6 % (20-40); Mean Corpuscular HGB Conc 33.8 g/dl (31.0-35.0); Mean Corpuscular Hemoglobin 31.2 pg (27.0-33.0); Mean Corpuscular Volume 92.4 fL (80.0-98.0); Mean Platelet Volume 9.3 fL (9.4-12.3); Monocytes Absolute Auto 0.6 X10*3/uL (0.1-1.2); Monocytes Percent Auto 5.9 % (2-11); Neutrophils Percent Auto 74.4 % (45-73); Platelet Count 312 X10*3/uL (160-400); Red Blood Count 3.94 X10*6/uL (4.20-5.50); Red Cell Distribution Width 13.9 % (11.0-16.0); White Blood Count 9.5 X10*3/uL (4.8-10.8)
[2022-07-13 10:45] LABS: Alanine Aminotransferase 20 U/L (0-31); Albumin Level 4.1 g/dL (3.5-5.0); Alkaline Phosphatase 44 U/L (39-117); Anion Gap 10 (12-20); Aspartate Amino Transferase 19 U/L (5-31); Bilirubin Direct 0.2 mg/dL (0.0-0.5); Bilirubin Total 0.6 mg/dL (0.0-1.0); Blood Urea Nitrogen 6 mg/dL (9-16); Calcium 9.2 mg/dL (8.4-10.2); Carbon Dioxide 28 mmol/L (22-29); Chloride 106 mmol/L (96-108); Creatinine Clr Calc Pharmacy 94.9; Estimated Glomerular Filt Rate > 60; Glucose Random 121 mg/dL (60-115); Lipase 42 U/L (8-78); Potassium 3.8 mmol/L (3.3-5.1); Sodium 140 mmol/L (135-145); Total Protein 6.7 g/dL (6.5-8.0)
--- NOTE | 2022-07-13 12:59 | ED_ITS ---
HPI - General Adult General Chief complaint: Abdominal Pain Stated complaint: abd pain vomiting Time Seen by Provider: 07/13/22 12:59 Source: patient and family (mother) Mode of arrival: ambulatory Limitations: no limitations History of Present Illness HPI narrative: Patient is a 31 year old assigned female at with a family history of colon cancer secondary to polyps presenting to the emergency department today with continued abdominal pain, nausea, and vomiting. Patient states that she was here the other day and diagnosed with a gallbladder polyp however, she continues to have pain of the abdomen with nausea and vomiting. Patient expressed concern that the gallbladder polyp may be cancerous given her family history of colon cancer secondary to polyps. Patient denies any dizziness, lightheadedness, fe edinson, chills, blurry vision, double vision, loss of vision, chest pain, difficulty breathing, shortness of breath, back pain, night sweats, pain with urination, increased urinary frequency, increased urinary urgency, blood in her urine or stool, syncope or a near syncopal episode, recent trauma or falls, bowel incontinence, bladder incontinence, bowel retention, bladder retention, or any other complaints at this time. Onset (ago): day(s) Location: abdomen Radiation: non-radiation Severity: mild Severity scale (1-10): 3 Relieving factors: none Exacerbating factors: none Associated symptoms: nausea/vomiting Treatments prior to arrival: none Related Data Home Medications Medication Instructions Recorded Confirmed oxycodone 5 mg capsule 5 mg PO BID PRN 05/16/20 Previous Rx's Medication Instructions Recorded ondansetron 4 mg disintegrating 4 mg PO Q8H PRN nausea and 07/10/22 tablet vomiting #10 tabs metoclopramide HCl 10 mg tablet 10 mg PO Q6H PRN nausea and 07/13/22 (Reglan) vomiting #7 tabs Allergies Allergy/AdvReac Type Severity Reaction Status Date / Time aspirin [Aspirin] Allergy Intermediate GI UPSET Verified 07/13/22 10:17 cinnamon [Cinnamon] Allergy Unknown RASH ITCH Verified 07/13/22 10:17 naproxen [From NAPROSYN] AdvReac Unknown GI UPSET Verified 07/13/22 10:17 cinnamon Allergy Unknown rash Uncoded 08/20/18 00:00 Motrin Allergy Unknown nausea Uncoded 05/16/20 13:15 Review of Systems Constitutional: Constitutional: Reports no additional constitutional complaints, Denies chills, Denies fever(s) and Denies night sweats Eyes: Eyes: Reports no additional eye complaints, Denies blurry vision, Denies change in vision, Denies diplopia, Denies eye discharge, Denies loss of vision and Denies eye pain ENT: Denies dizziness Cardiovascular: Cardiovascular: Reports no additional cardiovascular complaints, Denies chest pain, Denies lightheadedness, Denies Loss of Conscious ness and Denies dyspnea Respiratory: Respiratory: Reports no additional respiratory complaints and Denies dyspnea Gastrointestinal: Gastrointestinal: Reports no additional gastrointestinal com plaints, Reports abdominal pain, Denies melena, Denies hematochezia, Denies change in bowel habits, Denies change in stool character, Reports nausea and Reports vomiting Genitourinary: Genitourinary: Denies hematuria, Denies urinary frequency, De nies dysuria, Denies urinary incontinence, Denies urinary hesitancy and Denies urinary urgency Musculoskeletal: Musculoskeletal: Reports no additional musculoskeletal complaints, Denies numbness and Denies tingling Neurologic: Denies dizziness, Denies loss of vision, Denies numbness and Denies tingling Psychiatric: Psychiatric: Reports no additional psychiatric complaints Endocrine: Endocrine: Reports no additional endocrine complaints Hematologic/Lymphatic: Hematologic/Lymphatic: Reports no additional hematologic/lymphatic complaints Allergic/Immunologic: Allergic/Immunologic: Reports no additional allergic/immunologic complaints PMFSH Past Medical History Attestation statement: The following information was validated with the patient. 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 Physical Exam ED Vital Signs: Vital Signs - 24 hr 07/13/22 10:15 Temperature 98.0 F Pulse Rate 69 Respiratory Rate 16 Blood Pressure 125/85 Pulse Oximetry 100 Oxygen Delivery Method Room Air BMI result Body Mass Index 25.8 Const General: cooperative, no acute distress, alert and awake Nutritional Appearance: well nourished Orientation/consciousness: patient oriented x3 Limitations: no limitations HENMT Head: Yes normal to inspection and Yes atraumatic Ears: hearing grossly normal bilaterally and external ears normal General nose exam: Normal external nose present, no nasal discharge noted and no epistaxis Face and sinus: Yes normal facial exam, No abrasion and No laceration Mouth: Normal oral and palatal mucosa present, no drooling and no muffled voice Eyes General: appearance normal, both eyes and all related structures Periorbital: periorbital findings normal Eyelids: Yes eyelids normal Conjunctivae: conjunctivae normal Pupils: Equal, round and reactive pupils present EOM: EOMs intact bilaterally Neck Neck: Yes normal visual inspection, Yes full ROM and Yes no lymphadenopathy Chest Chest palpation & inspection: normal inspection of the chest Resp Effort & Inspection: normal respiratory effort and able to speak in complete sentences GI Inspection: Yes normal to inspection Palpation (GI): Soft to palpation, not firm, Tenderness to palpation present (GI) in the RUQ, no guarding and not rigid Neuro General: patient oriented x3 and moves all extremities Cranial nerves: Yes Equal, round and reactive pupils present Cognition (Neuro): normal cognition Motor exam (neuro): 5/5 motor strength present throughout Sensory Exam: Normal double simultaneous stimulation for sensation Coordination: [id number] test normal Extrem General: Yes normal to inspection, Yes full ROM and Yes capillary refill normal Psych Appearance: grossly normal Mental Status: mental status grossly normal Affect: normal affect Attitude: cooperative Thought process: Normal thought process present Thought content: Normal thought content present Insight: Good insight present (Psych) Medications Administered Discontinued Medications Generic Name Dose Route Start Last Admin Trade Name Freq PRN Reason Stop Dose Admin Sodium Chloride 1,000 mls @ 999 mls/hr 07/13/22 13:00 07/13/22 14:19 Ns IV 07/13/22 14:00 999 mls/hr .Q1H1M MARTINEZ Administration Iohexol 100 ml 07/13/22 13:57 07/13/22 13:57 Iohexol 350 Mg/Ml 100 Ml Infus..Btl IV 07/13/22 13:58 85 ml ONCE ONE Administration Metoclopramide HCl 10 mg 07/13/22 12:59 07/13/22 13:41 Metoclopramide Hcl 10 Mg/2 Ml Vial IVPUSH 07/13/22 13:00 10 mg ONCE ONE Administration Morphine Sulfate 4 mg 07/13/22 14:11 07/13/22 14:17 Morphine Sulfate 4 Mg/Ml Cartridge IVPUSH 07/13/22 14:12 4 mg ONCE ONE Administration Protocol Medical Decision Making Medical Decision Making MDM Narrative: Patient is a 31 year old assigned female at with a history of ovarian cysts and family history of colorectal cancer secondary to polyps presenting to the emergency department today with abdominal pain. Patient's physical exam showed minimal pain to palpation of the abdomen but was otherwise unremarkable. Patient's blood work was unremarkable. Patient's abdomen/pelvis CT showed evidence of a ruptured right ovarian ollicle. I explained my physical exam findings as well as all test results to the patient and the patient's mother. I answered all questions asked by the patient and the patient's mother. Patient received IV pain medication, fluids, and anit-emetics which she stated helped her symptoms significantly. I stressed the importance of the patient taking her medication as prescribed. I stressed the importance of the patient following up with her primary care provider. I stressed the importance of the patient returning to the emergency department immediately if her symptoms were to worsen or if she were to develop any dizziness, shortness of breath, difficulty breathing, chest pain, blurry vision, loss of vision, nausea, vomiting, abd ominal pain, fever, chills, back pain, or any other complaints. Patient and the patient's mother verbalized agreement and understanding with this treatment plan and discharge. Differential Diagnosis Differential Diagnoses: The differential diagnosis associated with the presentation includes ovarian cyst, abdominal pain Admission/Observation Consideration of admission/observation: Escalation of care including admission/observation considered Patient would have been admitted had her work up warranted admission. Lab Data MDM Lab Attestation statement: I reviewed the patient's lab results. 07/13/22 10:23 07/13/22 10:23 Labs: Lab Results 07/13/22 07/13/22 Range/Units 10:23 10:23 WBC 9.5 (4.8-10.8) X10*3/uL RBC 3.94 L (4.20-5.50) X10*6/uL Hgb 12.3 (12.0-16.0) g/dl Hct 36.4 L (37.0-47.0) % MCV 92.4 (80.0-98.0) fL MCH 31.2 (27.0-33.0) pg MCHC 33.8 (31.0-35.0) g/dl RDW 13.9 (11.0-16.0) % Plt Count 312 (160-400) X10*3/uL MPV 9.3 L (9.4-12.3) fL Immature Gran % (Auto) 0.3 (0.0-0.4) % Neut % (Auto) 74.4 H (45-73) % Lymph % (Auto) 18.6 L (20-40) % Gillespie % (Auto) 5.9 (2-11) % Eos % (Auto) 0.6 (0-4) % Baso % (Auto) 0.2 (0-2) % Lymph # (Auto) 1.8 (1.2-4.9) X10*3/uL Gillespie # (Auto) 0.6 (0.1-1.2) X10*3/uL Eos # (Auto) 0.1 (0.0-0.4) X10*3/uL Baso # (Auto) 0.0 (0.0-0.2) X10*3/uL Abs Immat Gran (auto) 0.03 (0.00-0.03) X10*3/uL Absolute Neuts (auto) 7.0 (2.0-8.3) x10*3/uL Absolute Nucleated RBC 0.000 (0.0-0.012) X10*3/uL Nucleated RBC % (auto) 0.0 (0.0-0.2) /100WBC Sodium 140 (135-145) mmol/L Potassium 3.8 (3.3-5.1) mmol/L Chloride 106 (96-108) mmol/L Carbon Dioxide 28 (22-29) mmol/L Anion Gap 10 L (12-20) BUN 6 L (9-16) mg/dL Creatinine 0.74 (0.5-1.4) mg/dL Estim Creat Clear Calc 94.9 Estimated GFR > 60 Random Glucose 121 H (60-115) mg/dL Calcium 9.2 (8.4-10.2) mg/dL Total Bilirubin 0.6 (0.0-1.0) mg/dL Direct Bilirubin 0.2 (0.0-0.5) mg/dL AST 19 (5-31) U/L ALT 20 (0-31) U/L Alkaline Phosphatase 44 (39-117) U/L Total Protein 6.7 (6.5-8.0) g/dL Albumin 4.1 (3.5-5.0) g/dL Lipase 42 (8-78) U/L Beta HCG, Quant < 2 mIU/mL Independent Interpretation I performed an independent interpretation of an: CT Scan Interpretation: My interpretation is in agreement with the radiologist's impression of this imaging study. EXAMINATION: CT ABDOMEN AND PELVIS WITH CONTRAST? CLINICAL INFORMATION: Abdominal pain? COMPARISON: 03/25/2013 TECHNIQUE: Multidetector volumetric images were obtained from the superior aspect of the liver through the pubic symphysis following administration 85 mL of Omnipaque 350 intravenous contrast. Sagittal and coronal reformatted images were obtained on the technologist's workstation.? Oral contrast: No This CT examination was performed using dose optimization techniques as appropriate, variously including the following: *Automated exposure control *Adjustment of mA and/or kV according to patient size (this includes techniques or standardized protocols for targeted exams where dose is matched to indication/reason for exam; i.e. extremities or head) *Use of iterative reconstruction technique DLP: 432.91 mGy-cm FINDINGS: LUNG BASES: The visualized lung bases are unremarkable.? LIVER, GALLBLADDER, AND BILIARY TREE: The liver is normal in size, shape, and attenuation. No focal hepatic lesion or biliary ductal dilatation is present. The gallbladder is unremarkable with no evidence of radiopaque gallstones, gallbladder wall thickening, or obvious pericholecystic inflammatory changes.? PANCREAS: Unremarkable.? SPLEEN: Unremarkable.? ADRENAL GLANDS: Unremarkable.? KIDNEYS AND URETERS: The kidneys are normal in size, shape, and attenuation. No hydronephrosis, hydroureter, or calculi seen. No perinephric stranding. ? BLADDER: Unremarkable.? GASTROINTESTINAL TRACT: The small and large bowel are unremarkable. The appendix is unremarkable.? ABDOMINAL WALL: No significant hernia is appreciated.? LYMPH NODES: Normal. VASCULAR: Unremarkable. PELVIC VISCERA: There appears to be a ruptured follicle the right adnexa. There is a small amount of fluid in the right pelvis, and the cul-de-sac, slightly greater than expected, but perhaps physiologic. The fluid measures 25-26 Hounsfield units.? OSSEOUS STRUCTURES: Unremarkable.? CT/CT abdomen pelvis w IV con IMPRESSION: ? 1. Small amount of fluid in the right pelvis and cul-de-sac, slightly greater than expected. However, in conjunction with a crenulated, perhaps ruptured right adnexal follicle, the fluid is statistically likely to be physiologic. Correlation with menstrual history, location and onset of pain is recommended. If indicated, transvaginal ultrasound might be of benefit to better assess the right adnexa and the fluid. ? Fleischner guidelines were followed. Dictated By: Mk Sanchez MD Signed By: Electronically signed by Mk Sanchez MD 07/13/22 2460 Independent Historian Clinical information obtained from an independent historian. History obtained from or confirmed by: Parent (patient's mother) Discharge Plan Discharge Clinical Impression: Abdominal pain, Ovarian cyst Patient Disposition: Home, Self-Care Instructions: Ovarian Cyst (ED), Abdominal Pain (ED) Additional Instructions: Follow up with your primary care provider. Return to the emergency department immediately if your symptoms worsen or if you develop any dizziness, shortness of breath, difficulty breathing, chest pain, blurry vision, loss of vision, nausea, vomiting, abdominal pain, fever, chills, back pain, or any other complaints. Prescriptions: New metoclopramide HCl [Reglan] 10 mg tablet 10 mg PO Q6H PRN (Reason: nausea and vomiting) Qty: 7 0RF No Action ondansetron 4 mg tablet,disintegrating 4 mg PO Q8H PRN (Reason: nausea and vomiting) Qty: 10 0RF Referrals: [facility] General Surgeons [Provider Group] (Call to establish and follow up with a general surgeon to discuss your gallbladder polyp concerns further. ) Karime Olguin DO [Primary Care Provider] - Rosalio Mcguire MD [Physician] - (Call to establish and follow up with an OBGYN for ovarian cyst monitoring / follow up. ) Stand Alone Forms: Work/School Release Print Language: Macedonian
[2022-07-13 13:30] LABS: HCG Quantitative < 2 mIU/mL
[2022-07-13] MEDS: Metoclopramide HCl 10 MG/2 ML VIAL IVPUSH (13:41)
[2022-07-13] MEDS: iohexoL 350 MG/ML 100 ML INFUS..BTL IV (13:57)
[2022-07-13] MEDS: Morphine Sulfate 4 MG/ML CARTRIDGE IVPUSH (14:17)
[2022-07-13] MEDS: 0.9 % Sodium Chloride 1,000 ML 999 ML IV (14:19)
[2022-07-13 14:30] VITALS: BP 119/80; PULSE 84; RESP 16; TEMP 36.7; O2SAT 99
== END 2022-07-13 15:18 | disposition home or self-care (01) ==
PROVIDERS: Physician Assistant Medical; Emergency Provider Emergency Medicine; PCP Family Medicine
DX: N83.201 Unspecified ovarian cyst, right side (principal); R10.2 Pelvic and perineal pain; Z79.899 Other long term (current) drug therapy
CPT/HCPCS: 36415; 51798; 74177; 80053; 82248; 83690; 84702; 85025; 96374; 96375; 99284; J2270; J2765; Q9967

== ENCOUNTER → 2022-07-24 08:31 | Outpatient (BNVA) | payer MEDICAID, SELFPAY | PROVIDERS: PCP Family Medicine; Referring Provider Family Medicine; Visit Provider Surgery | DX: K82.8 Other specified diseases of gallbladder (principal) | CPT/HCPCS: 99202 ==

== ENCOUNTER → 2022-08-13 10:55 | Outpatient (REF) | payer MEDICAID, SELFPAY ==
--- NOTE | ~2022-08-13 | NM_ITS ---
EXAMINATION: BILIARY TRACT IMAGING STUDY WITH CCK CLINICAL INFORMATION: Other specified diseases of the gallbladder. Right upper quadrant pain, biliary dyskinesia.. COMPARISON: No previous biliary scan is available for comparison. The diagnostic CT scan of the abdomen and pelvis, dated 07/13/2022, is available for comparison.. Abdominal ultrasound dated 07/10/2022 is also available for comparison. TECHNIQUE: Serial gamma scintillation camera images were obtained over the abdomen for a total observation period of 90 minutes following the intravenous administration of 5.0 mCi Tc-99m Mebrofenin. FINDINGS: There is good concentration of activity in the liver by 5 minutes post injection. Biliary activity is visualized by 10 minutes. The gallbladder is well visualized by 20 minutes. Small bowel is well visualized by 60 minutes. At 60 minutes post radiopharmaceutical injection, a 30-minute infusion of 1.3 micrograms Sincalide was then begun and an additional 40 minutes of images were obtained. There is good emptying of the gallbladder. By the end of the study there is good clearance of activity from the liver and visualization of diffuse small bowel activity. The calculated gallbladder ejection fraction is 63% (normal gallbladder ejection fraction is greater than 35%). NM/NM hepatobiliary w pharm IMPRESSION: Visualization of the gallbladder is evidence of a patent cystic duct and strong evidence against the diagnosis of acute cholecystitis. The common bile duct is patent. Gallbladder emptying and ejection fraction are normal. Liver function appears normal.
== END ==
LOC: HO.NUCMED 10:55
PROVIDERS: PCP Family Medicine; Visit Provider Surgery
DX: K82.8 Other specified diseases of gallbladder (principal)
CPT/HCPCS: 78227; A9537

== ENCOUNTER → 2022-08-24 08:15 | Outpatient (BNVA) | payer MEDICAID, SELFPAY | PROVIDERS: PCP Family Medicine; Visit Provider Surgery | DX: R10.13 Epigastric pain (principal) | CPT/HCPCS: 99212 ==

== ENCOUNTER 2022-08-28 11:04 | Outpatient (REF) | payer MEDICAID, SELFPAY ==
[2022-08-28 13:56] LABS: C Reactive Protein < 0.10 mg/dL (< or = 0.50)
[2022-08-28 14:14] LABS: TSH reflex Free T4 0.53 uIU/mL (0.32-4.0)
[2022-08-30 16:03] LABS: Immunoglobulin A 117 mg/dL (47-310)
[2022-08-31 16:53] LABS: Transglutaminase IgA <1.0 U/mL
== END 2022-08-28 11:05 | disposition home or self-care (01) ==
LOC: HO.LAB 11:04
PROVIDERS: PCP Family Medicine; Visit Provider Internal Medicine
DX: R10.9 Unspecified abdominal pain (principal); R19.7 Diarrhea, unspecified
CPT/HCPCS: 36415; 82784; 84443; 86140; 86364; 99202

== ENCOUNTER 2022-09-06 12:54 | Outpatient (REF) | payer MEDICAID, SELFPAY | END 2022-09-06 12:55 | disposition home or self-care (01) | LOC: HO.US 12:54 | PROVIDERS: PCP Family Medicine; Visit Provider Family Medicine | DX: R10.2 Pelvic and perineal pain (principal) | CPT/HCPCS: 76830; 76856 ==

== ENCOUNTER → 2022-09-07 14:50 | Outpatient (BNVA) | payer MEDICAID, SELFPAY | PROVIDERS: PCP Family Medicine; Visit Provider Physician Assistant | DX: M54.9 Dorsalgia, unspecified (principal) | CPT/HCPCS: 99212 ==

== ENCOUNTER 2022-10-19 12:41 | Day surgery (SDC) | payer MEDICAID, SELFPAY ==
--- NOTE | 2022-10-18 09:30 | HO.ANESPROP2 ---
Documented by User: Zita Vu NP 10/18/22 09:30 HPI - Anesthesia Eval Consult details Narrative: 32yo F for Upper Endoscopy PMFSH Active Problems Active Problems: All Active Problems (Updated 09/14/22 @ 11:10 by WOODY Wall) Lumbar disc herniation (Acute) Back pain (Acute) Diarrhea (Acute) Dyspepsia (Acute) Biliary dyskinesia (Acute) Right wrist pain (Acute) Pain of right thumb (Acute) Past Medical History Medical History Bunion of great toe of right foot (~2015) Family History Family History Maternal Uncle Colon cancer Surgical History Surgical History History of esophagogastroduodenoscopy (EGD) Hx of colonoscopy Hx of spinal surgery (~2020) Social History Social History Patient Tobacco Use Status: Former Tobacco user Quit Date: 5 yrs Use of substances other than those prescribed or required for medical reasons: Yes Substance Use Type: Marijuana Are you DNR?: No Advance Directives: No Advance Directives Information Provided: Yes 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 occupational status: employed 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 Allergies Allergy/AdvReac Type Severity Reaction Status Date / Time aspirin [Aspirin] Allergy Intermediate GI UPSET Verified 08/28/22 11:05 cinnamon [Cinnamon] Allergy Unknown RASH ITCH Verified 08/28/22 11:05 naproxen [From NAPROSYN] AdvReac Unknown GI UPSET Verified 08/28/22 11:05 cinnamon Allergy Unknown rash Uncoded 08/28/22 11:05 Motrin Allergy Unknown nausea Uncoded 08/28/22 11:05 Home Medications Medication Instructions Recorded Confirmed Last Taken Type albuterol sulfate 90 mcg/actuation 0 mcg inhalation 08/28/22 Unknown History aerosol inhaler (Ventolin HFA) cetirizine 10 mg tablet 10 mg PO DAILY 08/28/22 Unknown History ergocalciferol (vitamin D2) 1,250 1,250 mcg PO QWEEK 08/28/22 Unknown History mcg (50,000 unit) capsule naloxone 4 mg/actuation nasal spray 0 spray intranasal 08/28/22 Unknown History ondansetron HCl 4 mg tablet 4 mg PO Q8H PRN nausea/vomiting 08/28/22 Unknown History oxycodone 5 mg tablet 5 mg PO QID PRN 08/28/22 Unknown History pantoprazole 20 mg tablet,delayed 20 mg PO DAILY 08/28/22 Unknown History release Exam Exam Date and Time: October 18, 2022 0930 Assessment and Plan Assessment Anesthesia Assessment: Chart Reviewed Documented by User: Shaq Chase MD 10/19/22 13:51 PMFSH Past Medical History Medical History Bunion of great toe of right foot (~2015) Family History Family History Maternal Uncle Colon cancer Family history of problems with anesthesia: No Surgical History Surgical History History of esophagogastroduodenoscopy (EGD) Hx of colonoscopy Hx of spinal surgery (~2020) History of Problems with Anesthesia: No Social History Social History Patient Tobacco Use Status: Former Tobacco user Quit Date: 5 yrs Use of substances other than those prescribed or required for medical reasons: Yes Substance Use Type: Marijuana Are you DNR?: No Advance Directives: No Advance Directives Information Provided: Yes 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 occupational status: employed 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 Allergies Allergy/AdvReac Type Severity Reaction Status Date / Time aspirin [Aspirin] Allergy Intermediate GI UPSET Verified 08/28/22 11:05 cinnamon [Cinnamon] Allergy Unknown RASH ITCH Verified 08/28/22 11:05 naproxen [From NAPROSYN] AdvReac Unknown GI UPSET Verified 08/28/22 11:05 cinnamon Allergy Unknown rash Uncoded 08/28/22 11:05 Motrin Allergy Unknown nausea Uncoded 08/28/22 11:05 Home Medications Medication Instructions Recorded Confirmed Last Taken Type albuterol sulfate 90 mcg/actuation 0 mcg inhalation 08/28/22 Unknown History aerosol inhaler (Ventolin HFA) cetirizine 10 mg tablet 10 mg PO DAILY 08/28/22 Unknown History ergocalciferol (vitamin D2) 1,250 1,250 mcg PO QWEEK 08/28/22 Unknown History mcg (50,000 unit) capsule naloxone 4 mg/actuation nasal spray 0 spray intranasal 08/28/22 Unknown History ondansetron HCl 4 mg tablet 4 mg PO Q8H PRN nausea/vomiting 08/28/22 Unknown History oxycodone 5 mg tablet 5 mg PO QID PRN 08/28/22 Unknown History pantoprazole 20 mg tablet,delayed 20 mg PO DAILY 08/28/22 Unknown History release Exam Airway Mallampati Class: II TM Dist: >3cm Neck ROM: Full Heart: rrr Lungs: cta Assessment and Plan Assessment Anesthesia Assessment: Anesthesia Plan Discussed and Smoking Cess. Discussed Final Anesthetic Review Family History of Problems with Anesthesia: No History of Problems with Anesthesia: No NPO: Yes ASA Class: II Final Preanesthetic Review: No Changes in Pt Med Stat, Meds/Allgs Chart Reviewed, Consent Obtained/Reviewed and Anes Risks/Benef Reviewed Patient Risk: Low Procedure Risk: Intermediate Anesthetic Plan Anesthetic Plan: MAC: and Agree w/ Assess. and Plan Disposition: Standard PACU
--- OUTSIDE RECORDS SUMMARY | 2022-10-19 12:43 | XMS_ITS ---
Author Name Tapan Dumont Address [address] [place] [address] Organization [facility] Address [address] [place] [address] Care Team Providers Care Panelboard Tank Pumper Name Role Phone Tapan Dumont Unavailable [phone] PROBLEMS Unknown Problems ALLERGIES No Information ENCOUNTERS Encounter Location Date Diagnosis [facility] [address] [place] [address] Aug, [facility] [address] [place] [phone] Sep, [facility] Outpatient [address], [place] [phone] Mar, [facility] ER [address] [place], [place] [phone] Jan, IMMUNIZATIONS No Known Immunizations SOCIAL HISTORY Never Assessed REASON FOR REFERRAL FUNCTIONAL STATUS PLAN OF CARE VITAL SIGNS MEDICATIONS Unknown Medications PROCEDURES No Known procedures RESULTS No Results REASON FOR VISIT DYSPEPSIA, cancel OV Insurance Providers Health Insurance Type Health Plan Insurance Address Health Plan Insurance Phone Health Plan Insurance Name Health Plan Coverage Dates Member ID Patient Relationship to Subscriber Patient Address Patient Phone Patient Name Patient Date of Subscriber ID Subscriber Name Subscriber Date of Group No MEDICAID OF [employer] [address] [facility] [id number] [place] [place] [employer] 

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
--- NOTE | 2022-10-19 13:26 | MHC.SHP ---
Pre-Procedural Eval Section A Date of Service: 10/19/22 Section B Chief Complaint: Unspecified abdominal pain Details of Present Illness: PMH: Bunion of great toe of right foot Surgical History History of esophagogastroduodenoscopy (EGD) Hx of colonoscopy Hx of spinal surgery (~2020) Allergies: Allergies Allergy/AdvReac Type Severity Reaction Status Date / Time aspirin [Aspirin] Allergy Intermediate GI UPSET Verified 08/28/22 11:05 cinnamon [Cinnamon] Allergy Unknown RASH ITCH Verified 08/28/22 11:05 naproxen [From NAPROSYN] AdvReac Unknown GI UPSET Verified 08/28/22 11:05 cinnamon Allergy Unknown rash Uncoded 08/28/22 11:05 Motrin Allergy Unknown nausea Uncoded 08/28/22 11:05 Review of Systems Review of Systems Comment: 10 point ROS negative except as above Exam Surgical H&P Exam: Normal: HEENT, Normal: Heart, Normal: Lungs, Normal: Extremities, Normal: Abdomen, Normal: Skin and Normal: Neurological Plan Diagnosis/Plan: Unchanged I have reviewed the history and physical and performed a pertinent physical examination on my patient. No changes have occurred unless specified. Time Spent With Patient Time: Total time managing care of this patient today ____ minutes.
[2022-10-19 13:28] VITALS: BMI 26.5
[2022-10-19 13:32] VITALS: BP 111/70; PULSE 90; RESP 16; TEMP 36.7; O2SAT 98
[2022-10-19] MEDS: Lactated Ringers 1,000 ML 100 ML IVCONT (13:48)
[2022-10-19 13:49] LABS: UPreg QC Valid YES; Urine Pregnancy NEGATIVE (NEGATIVE)
--- NOTE | 2022-10-19 15:27 | P.OP_ITS ---
Operative Note Operative Note Date of Service: 10/19/22 Narrative: Procedure: Esophagogastroduodenoscopy Endoscopist: Nadia Alnozo MD Indication: Abd pain Anesthesia Provider: Annette Rodriguez CRNA Anesthesia Type: MAC ?? EGD Procedure:?? The procedure, indications, preparation and potential complications were reviewed with the patient, who indicated understanding and gave written informed consent to proceed. A physical exam was performed. The endoscope was introduced through the mouth, and advanced to the second part of duodenum. The mucosa was carefully examined on slow withdrawal of the endoscope. The patient tolerated the procedure well. There were no immediate complications.? ? EGD Findings:? * Esophagus:? Normal mucosa noted in the entire esophagus. The Z line was at 38 cm. Middle and lower esophagus forceps biopsies were obtained to rule out eosinophilic esophagitis. * Stomach:? Normal mucosa was noted in the stomach. Random cold forceps gastric biopsies were taken to rule out H Pylori infection. * Duodenum:? Erythema and edema of the duodenal bulb was noted. The remaining duodenal mucosa was normal to the extent examined. Cold forceps biopsies were taken from duodenal bulb and second portion of the duodenum to rule out celiac sprue. ? EGD Impressions:? * Normal esophagus (biopsy) * Normal stomach (biopsy) * Peptic duodenitis (biopsy) ?? Recommendations:?? * Follow biopsy results. Our office will call or send a letter with results within 7-10 days. * Increase pantoprazole to 20mg BID x 4 weeks and then decrease to once daily * If H pylori +, patient will be prescribed eradication therapy followed by test of cure. * Avoid NSAIDs. Above has been reviewed with the patient. Relevant educational hand outs were provided at discharge.
[2022-10-19 15:34] VITALS: BP 115/71; PULSE 78; RESP 16; TEMP 36.3; O2SAT 99
[2022-10-19 15:49] VITALS: BP 101/66; PULSE 61; RESP 16; O2SAT 99
[2022-10-19 16:04] VITALS: BP 104/66; PULSE 63; RESP 16; O2SAT 99
[2022-10-19 16:20] VITALS: BP 104/69; PULSE 73; RESP 16; TEMP 36.6; O2SAT 98
== END 2022-10-19 16:31 | disposition home or self-care (01) ==
PROVIDERS: Nurse Practitioner; PCP Family Medicine; Visit Provider Internal Medicine
PROC: 0DJ08ZZ Inspection of Upper Intestinal Tract, Via Natural or Artificial Opening Endoscopic (ICD-10-PCS; CPT 43235; principal; 2022-10-19 14:20)
DX: R10.9 Unspecified abdominal pain (principal); K29.80 Duodenitis without bleeding; Z79.899 Other long term (current) drug therapy; Z88.8 Allergy status to other drugs, medicaments and biological substances
CPT/HCPCS: 43239; 81025; 88305; 88342; J2250

== ENCOUNTER → 2022-10-19 12:41 | Outpatient (BNV) | payer MEDICAID, SELFPAY | PROVIDERS: PCP Family Medicine; Visit Provider Internal Medicine | DX: R10.9 Unspecified abdominal pain (principal) | CPT/HCPCS: 43239 ==

== ENCOUNTER 2022-10-25 16:33 | Outpatient (REF) | payer MEDICAID, SELFPAY ==
--- NOTE | ~2022-10-25 | MR_ITS ---
EXAMINATION: MR LUMBAR SPINE WITHOUT AND WITH CONTRAST CLINICAL INFORMATION: Intervertebral disc displacement of the lumbar spine. COMPARISON: Lumbar spine MRI from 12/14/2021. TECHNIQUE: MRI of the lumbar spine was obtained using routine sequences without and following the administration of 6 mL of Gadavist intravenous contrast. FINDINGS: Normal anatomic alignment. Advanced degenerative disc disease at L4-L5. Mild degenerative disc disease at L2-L3 small T2 hyperintense annular fissure. Associated mixed Modic type discogenic endplate changes including mild Modic type I discogenic edema at L4-L5. No additional suspicious marrow edema. The vertebral body heights are well-maintained. There is enhancing granulation/scar tissue overlying the L4-L5 respective disc. No additional abnormal enhancement. The conus medullaris terminates at the level of L1. The distal spinal cord is normal in appearance. Changes of right hemilaminotomy at L4-L5. No significant abnormalities of the paraspinal musculature. Limited evaluation of the intra-abdominal structures without significant abnormalities. The abdominal aorta is of normal contour and caliber. AXIAL SPINAL LEVELS: L1-L2: Normal annular contour. There is mild bilateral facet joint arthropathy. There is no neural foraminal stenosis. There is no spinal canal stenosis. L2-L3: Normal annular contour. There is mild bilateral facet joint arthropathy. There is no neural foraminal stenosis. There is no spinal canal stenosis. L3-L4: Shallow diffuse disc bulge. There is moderate bilateral facet joint arthropathy. There is no neural foraminal stenosis. There is narrowing of the subarticular zones with mild spinal canal stenosis centrally exacerbated by prominent dorsal epidural lipomatous tissue. L4-L5: Moderate diffuse disc bulge with posterior osseous ridging and overlying central enhancing granulation/scar tissue. There is moderate bilateral facet joint arthropathy. There is moderate left worse than right neural foraminal stenosis. There is stenosis of the subarticular zones with moderate spinal canal stenosis centrally. L5-S1: Shallow diffuse disc bulge. There is moderate left and mild right facet joint arthropathy. There is mild left and no neural foraminal stenosis. There is no spinal canal stenosis. MR/MR lumbar spine wo/w con IMPRESSION: Moderate multilevel degenerative spondyloarthropathy of the lumbar spine as described in detail above. The previously demonstrated disc extrusion at L4-L5 has been resected. There remains a disc bulge with posterior osseous ridging at L4-L5. Overlying enhancing granulation/scar tissue indents the ventral thecal sac at this level. Associated stenoses of the subarticular zones and moderate spinal canal stenosis centrally at L4-L5. There is also mild spinal canal stenosis at L3-L4. Narrowing/stenoses of the subarticular zones from L3-L5. Moderate neural foraminal stenoses at L4-L5.
[2022-10-25] MEDS: gadobutroL 7.5 ML VIAL IVPUSH (17:28)
== END 2022-10-25 16:34 | disposition home or self-care (01) ==
LOC: HO.MRI 16:33
PROVIDERS: PCP Family Medicine; Visit Provider Physician Assistant
DX: M51.26 Other intervertebral disc displacement, lumbar region (principal); N64.4 Mastodynia
CPT/HCPCS: 72158; A9585

== ENCOUNTER → 2022-10-26 11:30 | Outpatient (BNV) | payer MEDICAID, SELFPAY | PROVIDERS: PCP Family Medicine; Visit Provider Radiology Diagnostic Radiology | DX: N64.4 Mastodynia (principal) | CPT/HCPCS: 76642; 77062; 77066 ==

== ENCOUNTER 2022-10-26 11:31 | Outpatient (REF) | payer MEDICAID, SELFPAY ==
--- NOTE | ~2022-10-26 | MM_ITS ---
EXAMINATION: MM DIAGNOSTIC DIGITAL BREAST TOMOSYNTHESIS, BILATERAL US BREAST LIMITED, RIGHT MAMMOGRAPHY: CLINICAL INFORMATION: Baseline mammography. 32-year-old female complaining of 2 month noticed palpable focus in the upper outer right breast. Patient also states unexplained bruising in the medial approximate 9:00 right breast. Patient states no known trauma. COMPARISON: Mammography: No prior. Baseline exam. TECHNIQUE: Digital breast tomosynthesis is performed in both the craniocaudal and mediolateral oblique views along with computer-aided detection (CAD). Synthesized 2D images are generated from the tomosynthesis. In addition to standard views, 3-D spot compression right CC views x2 were performed. FINDINGS: The breasts are heterogeneously dense, which may obscure small masses (ACR BI-RADS breast composition Category c). A marker has been placed overlying the palpable abnormality in the upper outer right breast by the technologist. There is an underlying increased region of parenchymal density without definable underlying mass or distortion. This will be evaluated by sonography. A subtle area of parenchymal distortion was noted in the medial right breast, middle one third, best visualized on the CC tomographic views, which completely dissipated on spot compression tomographic CC view, and is consistent with superimposition artifact. Otherwise, no suspicious masses, suspicious grouped calcifications, or areas of architectural distortion. No suspicious abnormalities are identified in the left breast. No axillary or skin changes are noted in either breast. Results were discussed with the patient at time of visit. ULTRASOUND: CLINICAL INFORMATION: Palpable abnormality upper outer right breast for evaluation. COMPARISON: None. Correlation made with screening mammography dated same day. TECHNIQUE: Targeted sonographic evaluation was performed of the right breast upper outer quadrant as indicated by the patient using a high frequency linear transducer. Selected archived documentation. FINDINGS: RIGHT BREAST: In the upper outer quadrant of the right breast, there is no evidence of discrete mass, cystic abnormality, recommend distortion, or area of abnormal shadowing. Only normal bands of extremely dense fibroglandular tissue were identified. Both myself and the technologist scanned the patient in real-time. MM/MM tomosynthesis diagnostic BI IMPRESSION: The palpable area of concern in the right breast upper outer quadrant appears to represent a focus of extremely dense fibroglandular tissue. There is no imaging finding suspicious for malignancy. Discussion was held with the patient, who would feel comfortable with a six-month interval follow-up sonogram of the palpable area right breast upper outer quadrant to ensure stability. Otherwise, clinical management is recommended, including decision to biopsy a palpable focus of concern. OVERALL ASSESSMENT: Mammography: BI-RADS 2 - Benign Findings Ultrasound: BI-RADS 2 - Benign Findings RECOMMENDATION: 6 Month F/U This patient's information was entered into a reminder system with a target due date for their next mammogram.
== END 2022-10-26 11:32 | disposition home or self-care (01) ==
LOC: HO.MAMMO 11:31
PROVIDERS: PCP Family Medicine; Visit Provider Family Medicine
DX: N64.4 Mastodynia (principal)
CPT/HCPCS: 76642; 77062; 77066

== ENCOUNTER 2022-10-31 13:50 | Outpatient (AMB) | payer MEDICAID, SELFPAY ==
--- NOTE | 2022-10-31 14:09 | HO.SPINEOV ---
Intake Intake Visit Reasons: MRI follow up Intake Note: Ms. Ceja is here today for result of [place] [facility] Surgical Forceps Fabricator Required: No Allergies aspirin [Aspirin] Allergy (Intermediate, Verified 08/28/22 11:05) GI UPSET cinnamon [Cinnamon] Allergy (Unknown, Verified 08/28/22 11:05) RASH ITCH naproxen [From NAPROSYN] Adverse Reaction (Unknown, Verified 08/28/22 11:05) GI UPSET cinnamon Allergy (Unknown, Uncoded 08/28/22 11:05) rash Motrin Allergy (Unknown, Uncoded 08/28/22 11:05) nausea Assessment & Plan Assessment & Plan (1) Lumbar disc herniation: Code(s): M51.26 - Other intervertebral disc displacement, lumbar region Plan The patient is a 32-year-old female who comes in as a follow-up for MRI review after being seen by WOODY Valadez. She is s/p a microdiskectomy in 2021. Her follow-up MRI after microdiskectomy indicated a disc herniation at L4-5 which the patient at the time did not want to have surgery on. After being evaluated by WOODY Valadez again in August a repeat MRI was ordered to further evaluate the progression of her disc herniation as her symptoms had progressed. On exam today she reports severe low back pain, with radiation of moderate pain down her left leg accompanied by numbness/tingling. When asked to track her symptoms from her low back down her leg the patient runs her hand from the lumbar spine down across the front of her thigh into her groin and down the side of her thigh. She also endorses some pain on the lateral aspect of her lower right extremity. This is a classic L5 dermatome distribution. She is able to produce 5/5 strength in her lower extremities, however elicits pain when doing so. Her reflexes are 2+ and grossly intact. (+) straight leg raise on Left. (-) straight leg raise on Right. This case was reviewed with Dr. Driscoll. Due to the patient's disclosure of intense low back pain accompanied by the recurrence of a disc herniation at the same level the patient was offered a left L4-5 TLIF. She is agreeable to this plan, and states that she does not want to have to live with her low back pain and radicular symptoms any longer. She was tentatively scheduled for surgery on January 14. 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 She was encouraged to make a physical exam appointment with her primary care physician as soon as possible to obtain clearance for surgery. Karen was given risk and benefits of surgery including but not limited to infection, hematoma, nerve injury, durotomy, weakness, bowel/bladder injury, persistent pain. We also discussed the option to continue with conservative treatment and patient wishes to proceed with surgery. She is aware that she should not take ibuprofen/aspirin within 7 days for surgery. All questions were answered to the best of our ability. If there is anything about this patients medical history that we have overlooked or concerns you have about us proceeding with surgery we would appreciate any input you can offer. Total amount of time spent in this visit was 45 minutes in discussion of symptoms, MRI imaging results and subsequent plan of care Jayden Driscoll MD,PhD [facility] [place] Coding Level of Care Code Est Pt Level 5 (39694) Diagnoses Lumbar disc herniation M51.26
== END 2022-10-31 14:50 | disposition home or self-care (01) ==
PROVIDERS: PCP Family Medicine; Visit Provider Neurological Surgery
DX: M51.26 Other intervertebral disc displacement, lumbar region (principal)
CPT/HCPCS: 99215

== ENCOUNTER → 2022-10-31 13:50 | Outpatient (BNVA) | payer MEDICAID, SELFPAY | PROVIDERS: PCP Family Medicine; Visit Provider Neurological Surgery | DX: M51.26 Other intervertebral disc displacement, lumbar region (principal) | CPT/HCPCS: 99212 ==

== ENCOUNTER 2023-01-14 06:06 | Inpatient (IN) | payer MEDICAID, SELFPAY ==
--- NOTE | 2022-12-31 | ECG_ITS ---
Test Reason : preop Blood Pressure : / mmHG Vent. Rate : 072 BPM Atrial Rate : 072 BPM P-R Int : 148 ms QRS Dur : 088 ms QT Int : 392 ms P-R-T Axes : 056 078 051 degrees QTc Int : 429 ms Normal sinus rhythm Normal ECG When compared with ECG of 27-JUL-2013 11:06, No significant change was found Referred By: Zita Vu Electronically Signed By:EMELI BLAKE MD
[2022-12-31 12:09] VITALS: BP 113/70; PULSE 86; RESP 16; O2SAT 98; BMI 26.9
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
[2023-01-14] VITALS (15 sets, daily range): BP systolic 104–136; BP diastolic 59–88; PULSE 78–99; RESP 14–20; TEMP 36–36.9; O2SAT 98–100
--- NOTE | ~2023-01-14 | FL_ITS ---
EXAMINATION: XR FLUOROSCOPY WITH IMAGES CLINICAL INFORMATION: L4-L5 transforaminal lumbar interbody fusion COMPARISON: MRI of October 25, 2022 TECHNIQUE: Fluoroscopy Supervised By: Dr. Driscoll. Fluoroscopy Time: 1.1 minutes. Cumulative Dose: 72.8 mGy. DAP: 1.247 mGym2 Images: 3. FINDINGS: Intraoperative C-arm views demonstrate placement of pedicle screws and interconnecting rods with interbody fusion device L4-L5. FL/FL guidance in OR IMPRESSION: Intraoperative fluoroscopy for orthopedic procedure.
--- OUTSIDE RECORDS SUMMARY | 2023-01-14 06:22 | XMS_ITS | Patient Health Record ---
Author Name Unknown Organization [facility] Address [address] [place] [id number] Care Team Providers Care Child Study Team Director Name Role Phone Karime Olguin M.D. Primary Care Provider Yoana doreenilable Tapan Dumont Unavailable [phone] REASON FOR REFERRAL No Information SOCIAL HISTORY Sex Assigned At : Social History Observation Description Sex Assigned At Unknown Encounters Encounter Location Date Provider Diagnosis [facility] [address] [place] [id number] 08/24/2022 Tapan Dumont PLAN OF TREATMENT No Information Insurance Providers Payer Name Payer Address Payer Phone Subscriber Number Group Number Insured Name Patient Relationship to Insured Coverage Start Date Coverage End Date MED[employer] OF [employer] [address] [place] [id number] INEZ HERRING Self - patient is the insured
[2023-01-14] MEDS: Lactated Ringers 1,000 ML 100 ML IVCONT (06:26)
[2023-01-14] MEDS: Gabapentin 300 MG CAPSULE PO (06:57)
[2023-01-14] MEDS: methocarbamoL 750 MG TABLET PO (06:57)
--- NOTE | 2023-01-14 07:22 | MHC.SHP ---
Pre-Procedural Eval Section A Date of Service: 01/14/23 The patient is an INPATIENT: No Changes since office visit: No Cold of Flu in the past 2 weeks, No New Medical Problems, No Changes in Medication and No Patient answered all questions The History & Physical has been completed within 30 days and I have reviewed it.: No Section B Chief Complaint: L4-5 TLIF Allergies: Allergies Allergy/AdvReac Type Severity Reaction Status Date / Time cinnamon [Cinnamon] Allergy Severe RASH ITCH Verified 01/14/23 06:45 aspirin [Aspirin] Allergy Intermediate GI UPSET Verified 01/14/23 06:45 naproxen [From NAPROSYN] Allergy Intermediate GI UPSET Verified 01/14/23 06:45 Motrin Allergy Intermediate Gastrointestinal Uncoded 01/14/23 06:45 Upset Review of Systems Sugical H&P ROS: Negative: Constitution, Cardiovascular, Respiratory, Neurological, Psychiatric, Hem-Onc, Allergic/Immunologic, Gastrointestinal, Genitourinary, Musculoskeletal, Integumentary, Endocrine and Eyes/Ears/Nose/Throat Exam Surgical H&P Exam: Not Evaluated: HEENT, Not Evaluated: Heart, Not Evaluated: Lungs, Not Evaluated: Extremities, Not Evaluated: Abdomen, Not Evaluated: Skin and Not Evaluated: Neurological Plan Diagnosis/Plan: Unchanged I have reviewed the history and physical and performed a pertinent physical examination on my patient. No changes have occurred unless specified. left L4-5 TLIF Time Spent With Patient Time: Total time managing care of this patient today __10__ minutes.
--- NOTE | 2023-01-14 09:45 | W.PM.OPN ---
Operative Note Operative Note Date of Service: 01/14/23 Narrative: Preop diagnosis: back pain and bilateral lumbar radiculopathy and due L4-5 degenerative disc disease with recurrent disc herniation Postop diagnosis: same Procedure: Left L4-5 complete facetectomy; diskectomy, arthrodesis and implantation cage; L4-5 posterior instrumentation; combination of allograft and allograft Consent Informed Consent was obtained for this operation. I have explained the nature, purpose and benefits of the operation. I have discussed the risks and benefit of the operation including possible complications or adverse events with patient/family. Alternative(s) were discussed with the patient with their relative benefits and risks as well as the consequences of not accepting the operation were included in obtaining consent. Surgeon: Jerardo Driscoll MD, PhD Assist: hema Kennedy Description of Procedure: this 32-year-old female is suffering from back pain and bilateral lumbar radiculopathy. MRI shows severe degenerative disc disease L4-5 and recurrent centrally disc herniation. The patient was offered a remove the disc herniation followed by a fusion of the L4-5 segment with a transforaminal lumbar interbody fusion. Procedure complication explained. The patient was consented. The patient was brought to the operating room endotracheally intubated. The patient was turned in a prone position the Yuniel spine table prepping and draping was done followed by time-out. Two C arms were installed for fluoroscopy. Two paramedian incisions were made in preparation for pedicle screw placement. Following steps were taken for pedicle screw placement: First the pediguard tap was used to create a transpedicular trajectory into the vertebral body. Then a K-wire was advanced into the vertebral body. On the contralateral side, a specially designed instrument was advanced over the K-wire, followed by placement of a pedicle screw in the corresponding pedicle and removal of the K-wire. On the ipsilateral side, the K-wires were bent out of the way after which the transforaminal interbody fusion process was started. The paravertebral muscles were released to expose the L4-5 lamina and facet joint. A high-speed drill was used to do a complete facetectomy. The nerve root was retracted medially after which a thorough L4-5diskectomy was done. An 8 mm mm and 10 mm trial implants were inserted. More disc material was removed. The endplates were prepared. The anterior 1/3 of disc space was filled with a mixture of autograft and allograft followed by placement of a 10 mm by 32 mm and 0 degree lordosis CTL silicone nitrate cage filled with autograft and allograft ending in the the midline on AP fluoroscopic image. Hemostasis was done. The retractor was removed. Finally, pedicle screws were placed over the K-wires and the K-wires were removed. A total 4 pedicle screws were placed with a diameter of 6.5 x 45 mm in the left L5 and bilateral L4 pedicles and 6.5 x 40 mm in the right L5 pedicle. The pedicle screws were connected with a 40 mm aleah and locked down with locking caps. Final x-rays in AP and lateral projection showed good position of the interbody device and posterior instrumentation. Hemostasis was done and the incisions were closed with an 0 Vicryl to fascia and a 3-0 Vicryl for the subdermal layer. All sponge and needle counts were correct. Patient was extubated and transported in a stable condition to recovery room. This procedure was done with assistance of her physician process assistant who helped an machine made shoe unit worker in the fluoroscopic imaging, placed pedicle screws and performed hemostasis and closure of the incisions. Anesthesia: General Estimated blood loss: 15 mL Complications: None. Surgical time: 90 minutes Deposition: Admit to inpatient for observation.
[2023-01-14] MEDS: fentaNYL citrate/PF 100 MCG/2 ML VIAL 25 MCG IVPUSH ×2 (10:23→10:28)
[2023-01-14] MEDS: HYDROmorphone HCl 0.5 MG/0.5 ML SYRINGE 0.25 MG IVPUSH ×2 (10:38→10:44)
[2023-01-14] MEDS: oxyCODONE HCl Immed Release 5 MG TABLET PO (10:53)
[2023-01-14] MEDS: 0.9 % Sodium Chloride 1,000 ML 75 ML IVCONT (11:45)
[2023-01-14] MEDS: oxyCODONE HCl Immed Release 5 MG TABLET 10 MG PO ×3 (11:50→20:20)
[2023-01-14] MEDS: Acetaminophen 1,000 MG/100 ML PIGGYBACK 400 MG IV ×2 (14:17→19:08)
[2023-01-14] MEDS: ceFAZolin Sodium/Dextrose,Iso 2 GM/50 ML PIGGYBACK IV ×2 (14:21→18:21)
--- NOTE | 2023-01-14 14:55 | PC.NURSE ---
Pt assisted to commode twice this shift. DTV #3 at 2029. Tolerated fair. Dressing to mid lower back changed twice for bloody drainage. Denies numbness or tingling to extremities.
--- NOTE | 2023-01-14 15:10 | PHA.MEDREC ---
Pharmacy Consult ? Medication Reconciliation Pharmacy has completed the medication reconciliation. Spoke to patient and verified medication list.
[2023-01-14] MEDS: Omeprazole 20 MG CAPSULE.DR PO (15:30)
[2023-01-14] MEDS: Ketorolac Tromethamine 15 MG/ML VIAL IVPUSH ×2 (15:30→20:20)
[2023-01-14] MEDS: HYDROmorphone HCl 1 MG/ML SYRINGE IVPUSH ×2 (18:28→22:21)
[2023-01-14] MEDS: Docusate Sodium 100 MG CAPSULE PO (20:20)
[2023-01-15] MEDS: oxyCODONE HCl Immed Release 5 MG TABLET 10 MG PO ×2 (00:30→05:50)
[2023-01-15] MEDS: 0.9 % Sodium Chloride 1,000 ML 75 ML IVCONT (00:31)
[2023-01-15] MEDS: ceFAZolin Sodium/Dextrose,Iso 2 GM/50 ML PIGGYBACK IV (00:50)
[2023-01-15] MEDS: Acetaminophen 1,000 MG/100 ML PIGGYBACK 400 MG IV ×3 (02:13→13:05)
[2023-01-15] MEDS: HYDROmorphone HCl 1 MG/ML SYRINGE IVPUSH ×4 (03:30→19:46)
[2023-01-15 04:00] VITALS: BP 107/70; PULSE 87; RESP 16; TEMP 36.8; O2SAT 99
[2023-01-15] MEDS: Ketorolac Tromethamine 15 MG/ML VIAL IVPUSH ×4 (04:36→21:09)
[2023-01-15] MEDS: Omeprazole 20 MG CAPSULE.DR PO ×2 (05:50→15:53)
[2023-01-15 07:48] VITALS: BP 109/69; PULSE 78; RESP 20; TEMP 36.8; O2SAT 99
--- NOTE | 2023-01-15 07:48 | HO.NEURO.PN ---
Neurosurgery Operative Note Date of Service: 01/15/23 Narrative: POD: 1 Procedure: L4-5 TLIF Patient reports she is up walking around is otherwise doing well. She does report some difficulty with ambulation and states she is been using the bedside commode instead of ambulating to the bathroom. She feels her symptoms are much better than pre-operatively. Some continued difficulty with pain control. She reports no radicular symptoms (resolved). She is voiding well, tolerating diet. Afebrile, vital signs stable. Full strength LE. Back dressings have some staining without signs of hematoma. No active sanguineous drainage. Area is dry. Plan: For better pain control the patient's PO Oxycodone will be switched to Dilaudid. She will remain on 3 South for continued recovery, pain management, and further evaluation. I will round on her in the morning for likely DC pending re-evaluation. The patient was seen at bedside with Dr. Driscoll who is in agreement with this plan. Jayden Hooper PA-C [facility] [address] [facility] [address]
[2023-01-15] MEDS: Loratadine 10 MG TABLET PO (07:54)
[2023-01-15] MEDS: Docusate Sodium 100 MG CAPSULE PO ×2 (07:54→19:48)
[2023-01-15] MEDS: HYDROmorphone HCl 2 MG TABLET PO ×2 (08:09→18:33)
--- NOTE | 2023-01-15 08:57 | MHC.CM.PN ---
Addendum entered by Eliz Ibrahim RN 01/15/23 12:55: PER PT, PT WILL BE STAYING W/HER MOP[facility] ON 3RD FLOOR, PT WILL NEED BLS TRANSPORT Original Note: EMR REVIEWED,PT ADMITTED S/P SPINAL SURGERY, CM MET W/PT WHO REPORTS SHE LIVES W/HER 17YO, 7YO AND 1YO, PT INDEP W/CARE AT BASELINE, DENIES USE OF DME AND REQUESTING WALKER FOR HOME, CM WILL REQUEST FROM SURGICAL. PT ALSO DENIES HOME SERVICES AND REPORTS HER MOM WILL BE COMING OVER BUT WILL NOT BE STAYING W/PT. PT VERIFIES PCP IS ESE FISHER, ZAHRA VACC X3 OR 4 AND PT EDUCATED ON AND WILL COMPLETE A HCP THIS ADMISSION. PER P.T. RECOMMENDATIONS HOME W/FAMILY SUPPORT.
[2023-01-15 10:34] VITALS: BP 109/69; PULSE 78; O2SAT 99
--- NOTE | 2023-01-15 12:56 | HO.POSTANES ---
Post Anesthesia Evaluation Post Anesthesia Evaluation Date of Service: 01/15/23 Vital Signs: Vital Signs Temp Pulse Resp BP Pulse Ox O2 Del Method 01/15/23 10:34 78 109/69 99 01/15/23 07:48 98.3 F 78 20 109/69 99 Room Air 01/15/23 04:00 98.2 F 87 16 107/70 99 Room Air Anesthesia: General Endotracheal-GETA Mental Status: Awake Pain Control: Satisfactory Nausea/Vomiting: None Hydration: Adequate Anesthesia-Related Issues: No Anes. Related Issues
[2023-01-15 14:58] VITALS: BP 95/60; PULSE 80; RESP 18; TEMP 36.4; O2SAT 99
[2023-01-15 19:10] VITALS: BP 105/62; PULSE 74; RESP 18; TEMP 36.2; O2SAT 98
[2023-01-16] MEDS: HYDROmorphone HCl 2 MG TABLET PO ×2 (00:04→09:36)
[2023-01-16] MEDS: HYDROmorphone HCl 1 MG/ML SYRINGE IVPUSH ×2 (00:23→04:09)
[2023-01-16 02:32] VITALS: BP 128/86; PULSE 80; RESP 18; TEMP 36.4; O2SAT 98
[2023-01-16] MEDS: Acetaminophen 1,000 MG/100 ML PIGGYBACK 400 MG IV ×2 (02:39→07:00)
[2023-01-16] MEDS: Ketorolac Tromethamine 15 MG/ML VIAL IVPUSH (04:03)
[2023-01-16] MEDS: Omeprazole 20 MG CAPSULE.DR PO (06:09)
[2023-01-16] MEDS: Docusate Sodium 100 MG CAPSULE PO (06:59)
[2023-01-16] MEDS: Loratadine 10 MG TABLET PO (06:59)
[2023-01-16 07:46] VITALS: BP 107/68; PULSE 86; RESP 16; TEMP 36; O2SAT 99
--- NOTE | 2023-01-16 09:04 | PM.DS ---
DS: Providers Provider Date of Service: 01/16/23 Date of admission: 01/14/23 06:06 Primary care physician: Karime Olguin DO DS: Summary Time Attestation Discharge coordination time: Less than 30 minutes Quality: Safe Use of Opioids Does Pt have an Active Cancer Diagnosis on the Problem List?: No Quality: Stroke Does the patient have a stroke diagnosis?: No Physical Exam Vital Signs: Vital Signs: Last Vital Signs Temp 96.8 F 01/16/23 07:46 Pulse 86 01/16/23 07:46 Resp 16 01/16/23 07:46 BP 107/68 01/16/23 07:46 Pulse Ox 99 01/16/23 07:46 O2 Del Method Room Air 01/16/23 07:46 O2 Flow Rate 2 01/14/23 11:34 BMI result Body Mass Index 26.9 Discharge Plan Discharge Anticipated Discharge Date/Time: 01/16/23 09:04 Patient Disposition: Home, Self-Care Discharge Diagnosis: S/P L4-5 Lumbar fusion Referrals: Karime Olguin DO [Primary Care Provider] - 1 Week Discharge Medications: New acetaminophen 500 mg tablet 1,000 mg PO Q8H PRN (Reason: MILD-MODERATE PAIN) Qty: 42 1RF docusate sodium 100 mg capsule 100 mg PO BID Qty: 20 0RF hydromorphone [Dilaudid] 2 mg tablet 2 mg PO Q8H Qty: 10 0RF Rx Instructions: Partial Fill upon patient request. Continued metoclopramide HCl [Reglan] 10 mg tablet 10 mg PO Q6H PRN (Reason: nausea and vomiting) Qty: 7 0RF pantoprazole 20 mg tablet,delayed release (DR/EC) 20 mg PO BID 30 Days Qty: 60 1RF ergocalciferol (vitamin D2) 1,250 mcg (50,000 unit) capsule 1,250 mcg PO QWEEK cetirizine 10 mg tablet 10 mg PO DAILY ondansetron HCl 4 mg tablet 4 mg PO Q8H PRN (Reason: nausea/vomiting) albuterol sulfate [Ventolin HFA] 90 mcg/actuation HFA aerosol inhaler 2 puff inhalation QID PRN (Reason: Shortness Of Breath Or Wheezing) Held oxycodone 5 mg tablet 5 mg PO QID PRN (Reason: Pain) Hold Instructions: Resume on 01/20/23. Hold while taking hydromorphone. Discharge Orders: Discharge Order (Routine); Ordered 01/16/23 Ordered By: Jayden Hooper Diet: Advance to usual diet Activity on Discharge: As tolerated Stand Alone Forms: Patient Portal Discharge page Activity Restrictions/Additional Instructions: After your spinal surgery we ask you to observe the following restrictions/guidelines: Activity: With lumbar fusion surgery it is normal to have days in the first couple of weeks where you have increased leg pain. This usually lasts 1-2 days and self resolves with the continuation of medication. Attempt to stay mobile and continue activity as tolerated. It is normal to feel some discomfort as you increase your activity, but that will improve with time. We ask you avoid heavy lifting or activities that cause pain. As a general rule, 8lbs is a safe limit for lifting right after surgery. Walk as much as you feel comfortable but not to exhaustion. You will feel extra tired the first few days after surgery. Stay well hydrated. It is OK to walk up and down stairs You may return to driving when you are off narcotics (such as vicodin, oxycodone, dilaudid, etc), and you are back to normal functional capacity. If you have any concerns please check with office before driving. Return to work is specific to each patient and each surgery, so please speak with your doctor/PA at first follow up. Please bring paperwork such as FMLA at that time if you need it filled out. Medications: It is recommended that you take Tylenol 500 mg every 4 hours for the 1st week postoperatively, alongside ibuprofen 600 mg every 8 hours. We will give you a short supply of narcotics after surgery (usually one weeks worth). Please use this for breakthrough pain that is refractory to the Tylenol. Please do not use more than prescribed. Resume your oxycodone prescription if needed for severe pain when your hydromorphone prescription is complete. If you are on a narcotic, it is a good idea to take a stool softener such as colace or senna to avoid constipation If you take blood thinner such as aspirin, Plavix, Coumadin, Effient, Eliquis etc for conditions such as Afib, DVT, Pulmonary embolus, coronary disease, stents etc please speak with your surgeon about specific details as to when you can resume these medications. You can resume NSAIDs on post op day 1 (eg: Motrin, Naproxen, etc). Follow up: Please call the office, , after surgery to arrange a 3 week follow up for wound check. Wound Care: You may remove your dressing on the first day after surgery. You may leave open to air. Please do not remove the steri strips underneath. they will fall off on their own in one week. IT IS NORMAL FOR THE WOUND TO OOZE OR BE BLOODY FOR A FEW DAYS AFTER SURGERY. IF THIS HAPPENS JUST PLACE NEW DRESSING OVER IT TO AVOID STAINING CLOTHES. You may shower on post op day # 1 We ask that you do not let the water soak the wound. If it does get wet, just towel dry lightly. Please do not scrub your incision or place any type of chemical/ointment on the wound. No tub baths, pools or jacuzzis for one month. If you have any leaking or redness from your wound, or fevers, please call office Care Plan Goals: Return to activity as tolerated. Health Concerns: None. Plan of Treatment: Follow-up in clinic in 2-3 weeks. Assessment: POD: 2 Procedure: L4-5 TLIF Karen was seen in her room this morning sitting upright in bed eating breakfast. She is well appearing, reports she is tolerating food well, and is able to use the bathroom when needed. She has been up to ambulate more than she was yesterday, and is making it to the bathroom rather than using the bedside commode. She still reports mild pain in her low back, with good relief with pain medication. Afebrile, vital signs stable. No neurological deficits. Back dressings are dry without signs of hematoma. No active sanguineous drainage. Plan: Initially the plan was to send Karen home with at least 1 week worth of hydromorphone pain medication. Upon review of her [facility] it was noted that she has a months supply of oxycodone 5mg at home (quantity: 140) which was filled 2 weeks ago. This appears to be recurrent prescription, and she has over 100 filled per month by an outside provider. I provided her with 3 days worth of hydromorphone which is to be used instead of her oxycodone to help her with pain tolerance for the 1st few days when she returns home. She meets criteria to be medically discharged home. The above listed plan was discussed with Dr. Driscoll who evaluated the patient yesterday and is in agreement. Jayden Driscoll MD,PhD [facility]
--- NOTE | 2023-01-16 09:23 | HO.NEURO.PN ---
Neurosurgery Operative Note Date of Service: 01/16/23 Narrative: POD: 2 Procedure: L4-5 TLIF Karen was seen in her room this morning sitting upright in bed eating breakfast. She is well appearing, reports she is tolerating food well, and is able to use the bathroom when needed. She has been up to ambulate more than she was yesterday, and is making it to the bathroom rather than using the bedside commode. She still reports mild pain in her low back, with good relief with pain medication. Afebrile, vital signs stable. No neurological deficits. Back dressings are dry without signs of hematoma. No active sanguineous drainage. Plan: Initially the plan was to send Karen home with at least 1 week worth of hydromorphone pain medication. Upon review of her [facility] it was noted that she has a months supply of oxycodone 5mg at home (quantity: 140) which was filled 2 weeks ago. This appears to be recurrent prescription, and she has over 100 filled per month by an outside provider. I provided her with 3 days worth of hydromorphone which is to be used instead of her oxycodone to help her with pain tolerance for the 1st few days when she returns home. She meets criteria to be medically discharged home. The above listed plan was discussed with Dr. Driscoll who evaluated the patient yesterday and is in agreement. Jayden Driscoll MD,PhD [facility]
--- NOTE | 2023-01-16 09:31 | MHC.CM.PN ---
PT MEDICALLY CLEARED FOR DC HOME SELF CARE, [facility] WILL FILL SCRIPTS AND DELIVER TO ROOM PRIOR TO DC. ROSEANNA FOR BLS TRNAPSORT AT 11:30AM.
== END 2023-01-16 12:07 | disposition home or self-care (01) | DRG 304 ==
LOC: HO.SSSA 06:20 → HO.S3 10:28
PROVIDERS: Admitting Provider Neurological Surgery; PCP Family Medicine; Visit Provider Neurological Surgery
PROC: 0SG00A0 Fusion of Lumbar Vertebral Joint with Interbody Fusion Device, Anterior Approach, Anterior Column, Open Approach (ICD-10-PCS; principal; 2023-01-14 07:30)
DX: M51.16 Intervertebral disc disorders with radiculopathy, lumbar region (principal); F43.10 Post-traumatic stress disorder, unspecified; J45.909 Unspecified asthma, uncomplicated; K21.9 Gastro-esophageal reflux disease without esophagitis; Z23 Encounter for immunization; Z87.891 Personal history of nicotine dependence; Z79.899 Other long term (current) drug therapy
CPT/HCPCS: 86850; 86900; 86901; 90686; 93005; 97116; 97161; 97530; C1713; J0131; J0690; J1100; J1170; J1885; J2371; J2405; J3010; L8699

== ENCOUNTER → 2023-01-14 06:06 | Outpatient (BNV) | payer MEDICAID, SELFPAY ==
--- NOTE | 2023-01-16 15:03 | ...WebTmpl.AM.PHNO ---
Nursing Note After reviewing the documentation/note from Infectious disease, I called and spoke with Interventional Radiology and asked if they are able to do a biopsy on her cervical spine as requested by Infectious Disease as a pre-requisite to treating her empirically for osteomyelitis. I called the patient and explained this to her. She understands that she will be followed up with after we hear back from Interventional Radiology. This was discussed with Dr. Driscoll the attending Neurosurgeon who is in agreement with this plan. Jayden Hooper PA-C [facility] [address] [facility] [id number]
== END ==
PROVIDERS: Admitting Provider Neurological Surgery; PCP Family Medicine; Visit Provider Neurological Surgery
DX: Z48.89 Encounter for other specified surgical aftercare (principal)
CPT/HCPCS: 20930; 20936; 22633; 22840; 22853; 63052; 99024; 99499

== ENCOUNTER 2023-02-05 14:46 | Outpatient (AMB) | payer MEDICAID, SELFPAY ==
--- NOTE | 2023-02-05 15:15 | A.SPINEOV_ITS ---
Intake Intake Visit Reasons: 1st post op Intake Note: Ms. Robertson is here today for her 1st post-op visit. 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 The length leg pain that she had before surgery is gone. She is dealing with some aches and pains and feeling of swelling and stiffness in her back which are mostly normal at this point. She also has some feeling of numbness in the outer edges of the skin around her hips but does have a deep ache around her hip into her lateral thigh. Her wounds have all healed up nicely. I reassured her that a lot of these aches and pains after surgery will go away in the course of time. We discussed activity guidelines, restrictions and expectations after surgery. I gave her a return to work note for 04/16/2023. I would like to see her back in 6 weeks with a set of x-rays. Arnold Driscoll MD, PhD [facility] Orders: Orders XR lumbar spine 4V min Today M51.26 - Other intervertebral disc displacement, lumbar region Coding Level of Care Code Global (74210) Diagnoses Lumbar disc herniation M51.26
== END 2023-02-05 15:36 | disposition home or self-care (01) ==
PROVIDERS: PCP Family Medicine; Visit Provider Physician Assistant
DX: M51.26 Other intervertebral disc displacement, lumbar region (principal)
CPT/HCPCS: 99024

== ENCOUNTER 2023-02-05 14:46 | Outpatient (REF) | payer MEDICAID, SELFPAY | END 2023-02-05 14:47 | disposition home or self-care (01) | LOC: HO.HOSX 14:46 | PROVIDERS: PCP Family Medicine; Visit Provider Physician Assistant | DX: Z13.89 Encounter for screening for other disorder (principal) ==

== ENCOUNTER 2023-03-19 13:28 | Outpatient (REF) | payer MEDICAID, SELFPAY ==
--- NOTE | ~2023-03-19 | XR_ITS ---
EXAMINATION: XR LUMBOSACRAL SPINE WITH FLEXION CLINICAL INFORMATION: Lumbar fusion COMPARISON: Preoperative MR of 10/25/2022 and fluoroscopic guidance of 01/14/2023 TECHNIQUE: AP, lateral, spot, flexion and extension views were acquired of the lumbar spine. FINDINGS: The patient is undergone posterior fusion at L4-L5 with pedicle rods and screws and a prosthetic intervertebral disc. The hardware is intact. Vertebral body height and alignment are preserved. There is no abnormal motion upon flexion or extension. XR/XR lumbar spine bending only IMPRESSION: Surgical fusion at L4-L5 with no abnormal motion upon flexion or extension.
== END 2023-03-19 13:29 | disposition home or self-care (01) ==
LOC: HO.XRAY 13:28
PROVIDERS: PCP Family Medicine; Visit Provider Physician Assistant
DX: Z98.1 Arthrodesis status (principal)
CPT/HCPCS: 72120; 99212

== ENCOUNTER 2023-03-19 13:51 | Outpatient (AMB) | payer MEDICAID, SELFPAY ==
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
== END 2023-03-19 14:05 | disposition home or self-care (01) ==
PROVIDERS: PCP Family Medicine; Visit Provider Physician Assistant
DX: Z98.1 Arthrodesis status (principal)
CPT/HCPCS: 99024

== ENCOUNTER 2023-04-30 12:59 | Outpatient (AMB) | payer MEDICAID, SELFPAY ==
--- NOTE | 2023-04-30 13:08 | A.SPINEOV_ITS ---
Intake Intake Visit Reasons: 6 week follow up Intake Note: Ms. Ceja is here today for her 6 week follow up. 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 She continues to make positive progress, but is healing slowly. She reports she is able to accomplish the large majority of her ADLs and has been remaining as active as possible. We discussed setting a goal to walk at least 1 mile per day. 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 I provided her with a referral to physical therapy, and a return to work note. The patient is able to ambulate well, and rises from a seated position without difficulty. Her incision sites are well healed and have no signs of erythema or edema. There is no need for regular/routine follow-up with Karen at this point. We will follow up with her on an as-needed basis. Jayden Driscoll MD,PhD [facility] Orders: Orders 2 PT Evaluation and Treatment Today Z98.1 - Arthrodesis status Coding Level of Care Code Global (37421) Diagnoses S/P lumbar fusion Z98.1
== END 2023-04-30 13:53 | disposition home or self-care (01) ==
PROVIDERS: PCP Family Medicine; Visit Provider Physician Assistant
DX: Z98.1 Arthrodesis status (principal)
CPT/HCPCS: 99024

== ENCOUNTER → 2023-04-30 13:00 | Outpatient (BNV) | payer MEDICAID, SELFPAY | PROVIDERS: PCP Family Medicine; Visit Provider Radiology Diagnostic Radiology | DX: N64.4 Mastodynia (principal) | CPT/HCPCS: 76642 ==

== ENCOUNTER 2023-04-30 13:27 | Outpatient (REF) | payer MEDICAID, SELFPAY ==
--- NOTE | ~2023-04-30 | US_ITS ---
EXAMINATION: US DIAGNOSTIC ULTRASOUND BREAST, RIGHT CLINICAL INFORMATION: Upper outer quadrant pain and discoloration near areolar border according to patient.. COMPARISON: October 2022 right breast sonography TECHNIQUE: Ultrasound of the breast is performed with real-time keene scale imaging and color Doppler. FINDINGS: There is no focal suspicious finding. There is no solid mass, architectural abnormality, duct ectasia, or edema in the soft tissue planes. Results are discussed with the patient at time of visit. US/US breast RT limited mamm only IMPRESSION: Normal sonography of the upper outer quadrant of the right breast and areolar border. ASSESSMENT: BI-RADS 1 - Negative RECOMMENDATION: 1. Patient should be managed based on the clinical impression. 2. Otherwise, routine annual screening mammography. This patient's information was entered into a reminder system with a target due date for their next mammogram.
== END 2023-04-30 13:28 | disposition home or self-care (01) ==
LOC: HO.MAMMO 13:27
PROVIDERS: PCP Family Medicine; Visit Provider Family Medicine
DX: R92.2 Inconclusive mammogram (principal); M54.50 Low back pain, unspecified; Z47.89 Encounter for other orthopedic aftercare; Z98.1 Arthrodesis status
CPT/HCPCS: 76642; 99212

== ENCOUNTER 2023-06-04 14:00 | Outpatient (RCR) | payer MEDICAID, SELFPAY ==
--- NOTE | 2023-05-29 13:50 | MHC.PT.EP ---
[facility] [place] Office [place] Office [place] Office [address] Kimberly King [address] [phone] F: [phone] F: [phone] F: [phone] F: [phone] Physical Therapy Plan of Care Date of Evaluation: 05/27/23 Date of Surgery: 01/14/23 Diagnosis: Arthrodesis status S/P lumbar fusion on 01/[address] Driscoll Assessment: Pt is a very pleasant 32yo F who is s/p L4-L5 TLIF with Dr. Driscoll on 01/14/23. Pt presents to PT with current impairments in pain, decreased lumbar ROM, decreased core stabilization, posterior chain tightness, decreased hip/glute strength, impaired posture, and impaired body mechanics. She is limited functionally by bending, picking object up, LE dressing, putting on shoes, twisting, prolonged sitting, prolonged standing, and stair navigation. She is an excellent candidate for skilled PT in order to address current impairments to facilitate return to PLOF. She is recommended to be seen 2x/week for 4 weeks and will be reassessed at that time Frequency and Duration: The patient will be seen 2x/week for 4 weeks Short Term Goals: Pt will be I with HEP to promote self management of symptoms Pt will demonstrate improvements in postural awareness throughout the day Mcfp Goals: Pt will improve LLE quad strength to 5/5 to assist with prolonged standing and walking Pt will demonstrate ability to squat and cotton picker object from the floor with proper mechanics Pt will demonstrate improvements in function as evidenced by statistically significant improvement in Modified Oswestry Low Back Pain Disability Questionnaire Treatment Plan: Modalities to reduce pain, spasms and effusion. Manual therapy to restore motion and function. Therapeutic exercise to improve strength and flexibility. Neuromuscular re-education for posture and balance. Therapeutic activities to return to functional activities of daily living. Electronically signed by: Berenice Downs, PT, DPT Please sign and return to therapist. Thank you for your referral.
--- NOTE | 2023-06-13 14:39 | MHC.PT.DC ---
[facility] [place] [facility] [place] Office [place] Office [address] Kimberly King [address] [phone] F: [phone] F: [phone] F: [phone] F: [phone] Physical Therapy Discharge Report Diagnosis: Arthrodesis status S/P lumbar fusion on 01/[address] Driscoll Date of Surgery: 01/14/23 Date of Evaluation: 05/27/23 Date of Discharge: 06/13/23 Treatments to Date: 3 Cancellations to Date: No Shows to Date: Discharge Status: Patient Elected to Stop Discharge Summary: Pt was seen for PT from 05/27/23-06/04/23. Pts last attended PT session was 06/04/23. Pt called requesting to self D/C from PT reporting she is too busy with work right now. Pt is being D/C from skilled PT per her request. Pt current level of function unknown at this time Electronically signed by: Berenice Downs, PT, DPT Please sign and return to therapist. Thank you for your referral.
== END 2023-06-13 14:39 | disposition home or self-care (01) ==
LOC: HO.PT 14:00
PROVIDERS: PCP Family Medicine; Visit Provider Physician Assistant
DX: Z96.1 Presence of intraocular lens (principal)
CPT/HCPCS: 97110; 97161

== ENCOUNTER 2023-08-30 12:00 | Outpatient (REF) | payer MEDICAID, SELFPAY ==
[2023-08-30 13:24] LABS: Hematocrit 38.6 % (37.0-47.0); Hemoglobin 12.8 g/dl (12.0-16.0); Mean Corpuscular HGB Conc 33.2 g/dl (31.0-35.0); Mean Corpuscular Volume 93.5 fL (80.0-98.0); Mean Platelet Volume 9.9 fL (9.4-12.3); Platelet Count 305 X10*3/uL (160-400); Red Blood Count 4.13 X10*6/uL (4.20-5.50); Red Cell Distribution Width 13.1 % (11.0-16.0); White Blood Count 9.4 X10*3/uL (4.8-10.8)
[2023-08-30 13:48] LABS: Estimated Average Glucose 108 mg/dL; Hemoglobin A1c % 5.4 % (<6.0)
[2023-08-30 14:10] LABS: Alanine Aminotransferase 15 U/L (0-31); Alkaline Phosphatase 42 U/L (39-117); Anion Gap 10 (12-20); Aspartate Amino Transferase 16 U/L (5-31); Bilirubin Direct 0.1 mg/dL (0.0-0.5); Bilirubin Total 0.5 mg/dL (0.0-1.0); Blood Urea Nitrogen 8 mg/dL (9-16); Calcium 9.2 mg/dL (8.4-10.2); Carbon Dioxide 27 mmol/L (22-29); Chloride 107 mmol/L (96-108); Cholesterol 161 mg/dL (<200); Estimated Glomerular Filt Rate > 60; Glucose Random 91 mg/dL (60-115); HDL Cholesterol 59 mg/dL (>40); LDL Cholesterol Calculated 87 mg/dL (<100); Potassium 4.1 mmol/L (3.3-5.1); Sodium 140 mmol/L (135-145); Triglycerides 79 mg/dL (<150)
[2023-08-30 14:27] LABS: Free T4 (Free Thyroxine) 0.84 ng/dL (0.71-1.85); Thyroid Stimulating Hormone 0.97 uIU/mL (0.32-4.0); Vitamin D 25-OH Total 25.7 ng/mL (>30)
[2023-08-30 15:06] LABS: CT PCR NOT DETECTED (Not Detect.); NG PCR NOT DETECTED (Not Detect.)
[2023-09-01 18:28] LABS: RPR Rapid Plasma Reagin NON-REACTIVE (NON-REACTIVE)
[2023-09-02 08:24] LABS: Hepatitis A Antibody IgG Nonreactive (Nonreactive); ~Hepatitis A Antibody IgG 0.54 S/CO (0.00-0.99)
[2023-09-02 08:56] LABS: HBS Num1 1.26 mIU/mL (0-7.99); HBc Num1 0.27 S/CO (0.00-0.79); HBsAGNum1 0.27 S/CO (0.00-0.99); HIV AB/AG Nonreactive (Nonreactive); HIV Num 1 0.05 S/CO (0.00-0.99); Hepatitis B Core Antibody Nonreactive (Nonreactive); Hepatitis B Surface Antigen Negative (Negative); ~HepC Num1 0.21 S/CO (0.00-0.79); ~Hepatitis B Surface Antibody NONREACTIVE (Nonreactive); ~Hepatitis C Antibody Nonreactive (Nonreactive)
[2023-09-02 18:37] LABS: Herpes Simplex Type 2 IgG 1.02 index
== END 2023-08-30 12:01 | disposition home or self-care (01) ==
LOC: HO.HHCL 12:00
PROVIDERS: Visit Provider Family Medicine
DX: Z00.00 Encounter for general adult medical examination without abnormal findings (principal)
CPT/HCPCS: 0353U; 36415; 80048; 80061; 80076; 82306; 83036; 84439; 84443; 85027; 86592; 86695; 86696; 86704; 86706; 86708; 86803; 87340; 87389

== ENCOUNTER 2023-09-06 09:07 | Outpatient (REF) | payer MEDICAID, SELFPAY ==
--- NOTE | ~2023-09-06 | US_ITS ---
EXAMINATION: US ABDOMEN COMPLETE CLINICAL INFORMATION: Gallbladder polyp, followup. COMPARISON: CT abdomen and pelvis 07/13/2022. Ultrasound abdomen limited 07/10/2022. TECHNIQUE: Real-time imaging of the abdominal viscera. FINDINGS: PANCREAS: Normal. ABDOMINAL AORTA: The proximal, mid, and distal segments are normal in caliber. INFERIOR VENA CAVA: Visualized portions are normal. LIVER: Normal. The liver is normal in size. The liver contour is normal. Parenchymal echogenicity is normal. No focal hepatic lesion. There is no intrahepatic biliary duct dilatation seen. GALLBLADDER: Normal. The gallbladder is physiologically distended without evidence of stones, sludge, polyps, wall thickening or pericholecystic fluid. COMMON BILE DUCT: Normal in caliber measuring 0.4 cm in diameter. RIGHT KIDNEY: Normal. No hydronephrosis. No renal calculi or focal parenchymal lesions. The kidney measures 9.8 cm in maximum dimension. LEFT KIDNEY: Normal. No hydronephrosis. No renal calculi or focal parenchymal lesions. The kidney measures 10.2 cm in maximum dimension. SPLEEN: Normal. The spleen measures 8.3 cm in maximum dimension. FREE FLUID: None. US/US abdomen complete IMPRESSION: Previously seen gallbladder polyp is not appreciated on today's exam.
== END 2023-09-06 09:08 | disposition home or self-care (01) ==
LOC: HO.US 09:07
PROVIDERS: PCP Family Medicine; Visit Provider Family Medicine
DX: K82.4 Cholesterolosis of gallbladder (principal)
CPT/HCPCS: 76700

== ENCOUNTER 2023-09-24 16:56 | Emergency (ER) | payer OTHER, MEDICAID, SELFPAY ==
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
[2023-09-24 17:00] VITALS: BP 128/87; PULSE 110; RESP 16; TEMP 36.7; O2SAT 97; BMI 28.3
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
[2023-09-24 18:52] VITALS: BP 112/77; PULSE 74; RESP 16; TEMP 36.7; O2SAT 100
[2023-09-24 19:08] VITALS: BP 112/77; PULSE 74; RESP 16; TEMP 36.7; O2SAT 100
--- NOTE | 2023-09-24 19:08 | PC.NURSE ---
Fabian by PA, cleared for de home.
== END 2023-09-24 19:10 | disposition home or self-care (01) ==
PROVIDERS: Emergency Provider Emergency Medicine Emergency Medical Services; PCP Family Medicine
DX: S16.1XXA Strain of muscle, fascia and tendon at neck level, initial encounter (principal); M54.2 Cervicalgia; R11.2 Nausea with vomiting, unspecified; R51.9 Headache, unspecified; V43.52XA Car driver injured in collision with other type car in traffic accident, initial encounter; Y93.89 Activity, other specified; Y92.488 Other paved roadways as the place of occurrence of the external cause; Y99.8 Other external cause status
CPT/HCPCS: 70450; 72100; 72125; 99284

== ENCOUNTER 2023-09-27 08:21 | Emergency (ER) | payer OTHER, MEDICAID, SELFPAY ==
[2023-09-27 08:26] VITALS: BP 131/80; PULSE 97; RESP 17; TEMP 36.6; O2SAT 97; BMI 28.3
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
[2023-09-27 10:13] VITALS: BP 116/69; PULSE 71; RESP 16; TEMP 36.1; O2SAT 96
== END 2023-09-27 10:14 | disposition home or self-care (01) ==
PROVIDERS: Emergency Provider Student in an Organized Health Care Education/Training Program; PCP Family Medicine
DX: M54.50 Low back pain, unspecified (principal)
CPT/HCPCS: 99283; 99284

== ENCOUNTER 2023-10-07 14:59 | Outpatient (AMB) | payer MEDICAID, SELFPAY ==
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
== END 2023-10-07 16:11 | disposition home or self-care (01) ==
PROVIDERS: PCP Family Medicine; Visit Provider Physician Assistant
DX: M54.9 Dorsalgia, unspecified (principal); Z98.1 Arthrodesis status
CPT/HCPCS: 99213

== ENCOUNTER → 2023-10-07 14:59 | Outpatient (BNVA) | payer MEDICAID, SELFPAY | PROVIDERS: PCP Family Medicine; Visit Provider Physician Assistant | DX: M54.9 Dorsalgia, unspecified (principal); Z98.1 Arthrodesis status | CPT/HCPCS: 99212 ==

== ENCOUNTER 2023-10-24 14:30 | Outpatient (REF) | payer OTHER, MEDICAID, SELFPAY ==
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
[2023-10-24] MEDS: gadobutroL 7.5 ML VIAL IVPUSH (15:28)
== END 2023-10-24 14:31 | disposition home or self-care (01) ==
LOC: HO.MRI 14:30
PROVIDERS: PCP Family Medicine; Visit Provider Family Medicine
DX: M54.42 Lumbago with sciatica, left side (principal); G89.29 Other chronic pain
CPT/HCPCS: 72158; A9585

== ENCOUNTER 2023-11-28 11:21 | Outpatient (REF) | payer MEDICAID, SELFPAY ==
--- NOTE | ~2023-11-28 | US_ITS ---
EXAMINATION: US PELVIS CLINICAL INFORMATION: Enlarged uterus. COMPARISON: CT abdomen and pelvis 07/13/2022. TECHNIQUE: Ultrasound of the pelvis is performed using both transabdominal and transvaginal transducers along with Doppler. Transvaginal imaging is performed due to inadequate visualization transabdominally. FINDINGS: UTERUS: The uterus is anteverted and retroflexed measuring 10.0 x 5.4 x 6.2 cm. The double wall endometrial thickness is 15 mm. There is a question of an echogenic polypoid mass within the endometrial cavity. The uterus is smooth in contour and has normal myometrial echogenicity. No visible fibroid. Nabothian cysts are present in the cervix. ADNEXA: Both ovaries are visualized. There is normal color flow to the adnexa. There is no ovarian torsion. There is a small amount of fluid in the cul-de-sac. Right ovary measures 4.0 x 2.0 x 1.6 cm. Left ovary measures 3.4 x 1.5 x 1.8 cm. US/US pelvic and transvaginal IMPRESSION: Question of an echogenic polypoid mass within the endometrial cavity. Further evaluation with hysterosonography or MRI is recommended. Electronically signed by: Yovani Amor MD 12/04/2023 05:57 PM EDT RP
== END 2023-11-28 11:22 | disposition home or self-care (01) ==
LOC: HO.US 11:21
PROVIDERS: PCP Family Medicine; Visit Provider Family Medicine
DX: N92.0 Excessive and frequent menstruation with regular cycle (principal)
CPT/HCPCS: 76830; 76856

== ENCOUNTER 2023-12-10 | Outpatient (REF) | payer MEDICAID, SELFPAY | END 2023-12-10 00:01 | disposition home or self-care (01) | LOC: CF | PROVIDERS: PCP Family Medicine; Visit Provider Obstetrics & Gynecology | DX: R93.5 Abnormal findings on diagnostic imaging of other abdominal regions, including retroperitoneum (principal); N93.9 Abnormal uterine and vaginal bleeding, unspecified | CPT/HCPCS: 36415; 84146; 84443; 84702; 85027; 87491; 87591; 87624; 88175; 99202 ==

== ENCOUNTER 2023-12-10 10:12 | Outpatient (AMB) | payer MEDICAID, SELFPAY ==
[2023-12-10 10:24] VITALS: BP 110/66; BMI 28.2
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
== END 2023-12-10 10:57 | disposition home or self-care (01) ==
PROVIDERS: PCP Family Medicine; Visit Provider Obstetrics & Gynecology
DX: R93.5 Abnormal findings on diagnostic imaging of other abdominal regions, including retroperitoneum (principal); N93.9 Abnormal uterine and vaginal bleeding, unspecified
CPT/HCPCS: 99204

== ENCOUNTER 2023-12-10 10:48 | Outpatient (REF) | payer MEDICAID, SELFPAY ==
[2023-12-10 15:19] LABS: CT PCR NOT DETECTED (Not Detect.); NG PCR NOT DETECTED (Not Detect.)
[2023-12-13 00:43] LABS: HPV mRNA E6/E7 Not Detected (Not Detected)
== END 2023-12-10 10:49 | disposition home or self-care (01) ==
LOC: HO.LNP 10:48
PROVIDERS: Visit Provider Obstetrics & Gynecology
DX: N93.9 Abnormal uterine and vaginal bleeding, unspecified (principal); R93.5 Abnormal findings on diagnostic imaging of other abdominal regions, including retroperitoneum
CPT/HCPCS: 87491; 87591; 87624; 88175

== ENCOUNTER 2023-12-10 11:06 | Outpatient (REF) | payer MEDICAID, SELFPAY ==
[2023-12-10 11:48] LABS: Hematocrit 36.8 % (37.0-47.0); Hemoglobin 12.4 g/dl (12.0-16.0); Mean Corpuscular HGB Conc 33.7 g/dl (31.0-35.0); Mean Corpuscular Hemoglobin 31.3 pg (27.0-33.0); Mean Corpuscular Volume 92.9 fL (80.0-98.0); Mean Platelet Volume 9.1 fL (9.4-12.3); Platelet Count 330 X10*3/uL (160-400); Red Blood Count 3.96 X10*6/uL (4.20-5.50); Red Cell Distribution Width 12.9 % (11.0-16.0); White Blood Count 8.1 X10*3/uL (4.8-10.8)
[2023-12-10 12:38] LABS: HCG Quantitative < 2 mIU/mL; TSH reflex Free T4 0.77 uIU/mL (0.32-4.0)
[2023-12-11 14:23] LABS: Prolactin 10.9 ng/mL
== END 2023-12-10 11:07 | disposition home or self-care (01) ==
LOC: HO.LAB 11:06
PROVIDERS: PCP Family Medicine; Visit Provider Obstetrics & Gynecology
DX: N93.9 Abnormal uterine and vaginal bleeding, unspecified (principal); R93.5 Abnormal findings on diagnostic imaging of other abdominal regions, including retroperitoneum
CPT/HCPCS: 36415; 84146; 84443; 84702; 85027

== ENCOUNTER 2023-12-17 11:47 | Day surgery (SDC) | payer MEDICAID, SELFPAY ==
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
[2023-12-17 13:12] VITALS: BP 106/67; PULSE 74; RESP 14; TEMP 36.8; O2SAT 98; BMI 26.5
--- NOTE | 2023-12-17 13:12 | MHC.SHP ---
Pre-Procedural Eval Section A - 24 Hr Update-Section A only Date of Service: 12/17/23 The patient is an INPATIENT: No Changes since office visit: No Cold of Flu in the past 2 weeks, No New Medical Problems, No Changes in Medication and No Patient answered all questions The patient has been examined within 24 hours of the surgical procedure. The History & Physical has been completed within 30 days and I have reviewed it.: Yes Section B - Complete if H&P > 30 days Chief Complaint: Abnormal uterine and vaginal bleeding, unspecified Allergies: Allergies Allergy/AdvReac Type Severity Reaction Status Date / Time cinnamon [Cinnamon] Allergy Severe RASH ITCH Verified 12/17/23 12:53 aspirin [Aspirin] Allergy Intermediate GI UPSET Verified 12/17/23 12:53 naproxen [From NAPROSYN] Allergy Intermediate GI UPSET Verified 12/17/23 12:53 Motrin Allergy Intermediate Gastrointestinal Uncoded 12/10/23 10:27 Upset Plan Diagnosis/Plan: Unchanged I have reviewed the history and physical and performed a pertinent physical examination on my patient. No changes have occurred unless specified. Time Spent With Patient Time: Total time managing care of this patient today ____ minutes.
[2023-12-17] MEDS: Lactated Ringers 1,000 ML 100 ML IVCONT (13:23)
[2023-12-17 13:33] LABS: UPreg QC Valid YES; Urine Pregnancy NEGATIVE (NEGATIVE)
[2023-12-17 14:03] VITALS: BP 122/81; PULSE 69; RESP 10; TEMP 36.8; O2SAT 98
[2023-12-17 14:08] VITALS: BP 115/75; PULSE 76; RESP 14; O2SAT 97
--- NOTE | 2023-12-17 14:08 | PM.OP ---
Brief Operative Note Date of Service: 12/17/23 Pre-op diagnosis: Abnormal endometrium by ultrasound Post-op diagnosis: same (Endometrial polyp) Procedure: Hysteroscopy D&C, Polypectomy Surgeon: Rosalio Mcguire MD Anesthesia: GLMA Was an Straightener Gun Parts used for this Procedure?: No Estimated blood loss (mL): 0 Pathology: other (Endometrial Scrapping. Polyp) Condition: stable Disposition: PACU
--- NOTE | 2023-12-17 14:09 | P.OP_ITS ---
Operative Note Operative Note Date of Service: 12/17/23 Narrative: Preop Diagnosis: Abnormal Endometrium by US Operation: Diagnostic Hysteroscopy, Dilataion & Curettage and polypectomy Post Op Diagnosis: Endometrial Polyp QBL: Minimal Anesthesia: GLMA Surgeon: Rosalio Mcguire MD Machine Container Washer: None Complication: None Pathology: Endometrial Scrapings, Endometrial polyp Procedure: The patient was put in the dorsal lithotomy position, scrubbed, and draped in the usual manner. A sterile speculum was inserted in the patient's vagina. The anterior lip of the cervix was grasped with a single tooth tenaculum. The cervix was dilated up to 5 mm, then the scope was inserted in the patient's uterus. Inspection revealed endometrial polyp. The Myosure Reach device was used; it was introduced through the operative channel and polypectomy done with no complications. The scope was then taken out from the uterine cavity, sharp curettings was carried on with minimal to moderate amount of tissues retrieved. At the end of the procedure, all instruments were taken out of the patient uterine and vaginal cavity. The single tooth tenaculum was removed and homeostasis was assured using pressure,. The patient tolerated the procedure well and was transferred to the PACU in a stable condition.
[2023-12-17] MEDS: oxyCODONE HCl Immed Release 5 MG TABLET PO (14:10)
[2023-12-17 14:13] VITALS: BP 108/72; PULSE 78; RESP 16; O2SAT 99
[2023-12-17 14:18] VITALS: BP 102/66; PULSE 80; RESP 16; O2SAT 97
[2023-12-17 14:33] VITALS: BP 104/71; PULSE 73; RESP 18; TEMP 37.1; O2SAT 99
== END 2023-12-17 14:58 | disposition home or self-care (01) ==
PROVIDERS: PCP Family Medicine; Visit Provider Obstetrics & Gynecology
PROC: 0UDB8ZZ Extraction of Endometrium, Via Natural or Artificial Opening Endoscopic (ICD-10-PCS; CPT 58558; principal; 2023-12-17 13:30)
DX: N93.9 Abnormal uterine and vaginal bleeding, unspecified (principal); N84.0 Polyp of corpus uteri; D64.9 Anemia, unspecified; J45.909 Unspecified asthma, uncomplicated; F43.10 Post-traumatic stress disorder, unspecified; K21.9 Gastro-esophageal reflux disease without esophagitis; F32.A Depression, unspecified; F41.9 Anxiety disorder, unspecified; Z87.59 Personal history of other complications of pregnancy, childbirth and the puerperium; Z79.899 Other long term (current) drug therapy; Z79.52 Long term (current) use of systemic steroids; Z88.6 Allergy status to analgesic agent; Z87.891 Personal history of nicotine dependence
CPT/HCPCS: 58558; 81025; 88305; J1885; J2003; J2405; J2704; J3010

== ENCOUNTER → 2023-12-17 11:47 | Outpatient (BNV) | payer MEDICAID, SELFPAY | PROVIDERS: PCP Family Medicine; Visit Provider Obstetrics & Gynecology | DX: N84.0 Polyp of corpus uteri (principal) | CPT/HCPCS: 58558 ==

== ENCOUNTER 2024-01-07 10:48 | Outpatient (AMB) | payer MEDICAID, SELFPAY ==
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
[2024-01-07 10:59] VITALS: BP 100/64
== END 2024-01-07 11:31 | disposition home or self-care (01) ==
LOC: HO.HWS 10:48
PROVIDERS: PCP Family Medicine; Visit Provider Obstetrics & Gynecology
DX: N93.9 Abnormal uterine and vaginal bleeding, unspecified (principal)
CPT/HCPCS: 99213

== ENCOUNTER → 2024-01-07 10:48 | Outpatient (BNVA) | payer MEDICAID, SELFPAY | PROVIDERS: PCP Family Medicine; Visit Provider Obstetrics & Gynecology | DX: N93.9 Abnormal uterine and vaginal bleeding, unspecified (principal) | CPT/HCPCS: 99212 ==

== ENCOUNTER 2024-01-13 13:34 | Outpatient (REF) | payer MEDICAID, SELFPAY ==
[2024-01-13] MEDS: gadobutroL 7.5 ML VIAL IVPUSH (14:15)
== END 2024-01-13 13:35 | disposition home or self-care (01) ==
LOC: HO.MRI 13:34
PROVIDERS: PCP Family Medicine; Visit Provider Family Medicine
DX: N85.8 Other specified noninflammatory disorders of uterus (principal)
CPT/HCPCS: 72197; A9585

== ENCOUNTER 2024-02-25 11:38 | Emergency (ER) | payer MEDICAID, SELFPAY ==
--- NOTE | ~2024-02-25 | US_ITS ---
EXAMINATION: US ABDOMEN LIMITED CLINICAL INFORMATION: Right upper quadrant pain. COMPARISON: Abdominal ultrasound on 08/29/2023 TECHNIQUE: Real-time imaging of the right upper quadrant abdominal viscera. FINDINGS: PANCREAS: Visualized portions are unremarkable. LIVER: The liver is normal in size. The liver contour is normal. Parenchymal echogenicity is normal. There is a well-defined hyperechoic 1.7 cm lesion at the right hepatic dome. There is no intrahepatic biliary duct dilatation seen. GALLBLADDER: The gallbladder is physiologically distended without evidence of stones, sludge, polyps, wall thickening or pericholecystic fluid. COMMON BILE DUCT: Normal in caliber measuring 0.4 cm in diameter. RIGHT KIDNEY: No hydronephrosis. No renal calculi or focal parenchymal lesions. The kidney measures 10.1 cm in maximum dimension. FREE FLUID: None. US/US abdomen limited IMPRESSION: 1.7 cm hyperechoic lesion at the right hepatic dome, likely a hemangioma. Recommend follow-up ultrasound in 6 months to ensure stability. Electronically signed by: Caridad Arenas MD 02/25/2024 07:15 PM LIZY LUKE
[2024-02-25 11:57] VITALS: BP 105/66; PULSE 104; RESP 20; TEMP 36.8; O2SAT 98; BMI 26.0
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
[2024-02-25 13:01] LABS: Basophils Percent Auto 0.1 % (0-2); Eosinophils Percent Auto 0.1 % (0-4); Hemoglobin 13.1 g/dl (12.0-16.0); Imm Gran Abs Auto 0.09 X10*3/uL (0.00-0.03); Imm Gran Pct Auto 0.6 % (0.0-0.4); Lymphocytes Absolute Auto 0.5 X10*3/uL (1.2-4.9); MANUAL DIFF FLAG SCAN; Mean Corpuscular HGB Conc 34.5 g/dl (31.0-35.0); Mean Corpuscular Volume 89.8 fL (80.0-98.0); Mean Platelet Volume 9.1 fL (9.4-12.3); Monocytes Absolute Auto 0.7 X10*3/uL (0.1-1.2); Monocytes Percent Auto 4.4 % (2-11); Neutrophils Absolute Auto 14.6 x10*3/uL (2.0-8.3); Neutrophils Percent Auto 91.8 % (45-73); Platelet Count 355 X10*3/uL (160-400); Red Blood Count 4.23 X10*6/uL (4.20-5.50); Red Cell Distribution Width 14.4 % (11.0-16.0); SCAN SMEAR FLAG 1; White Blood Count 15.8 X10*3/uL (4.8-10.8)
[2024-02-25 13:07] LABS: Appearance Urine Turbid; Color Urine Yellow; Glucose Urine UA Negative (Negative); Leukocyte Esterase Urine Trace (Negative); Nitrite Urine Negative (Negative); PH >= 9.0 (5.0-9.0); Specific Gravity - Urine >= 1.030 (1.005-1.025); UMIC TRIGGER UACC YES; Urine Blood Negative (Negative); Urine Ketones 40 mg/dL (Negative); Urine Protein 30 (1+) mg/dL (Neg-Trace)
[2024-02-25 13:15] LABS: Bacteria Urine Trace (None Seen); Hyaline Casts Urine 0-2 /LPF (0-2); RBC Urine 0-2 /HPF (0-2); Squamous Epithelial Cell Urine >20 /HPF (0-2); WBC Urine 0-5 /HPF (0-5)
[2024-02-25 13:18] LABS: SLIDE REVIEW VERIFIED
[2024-02-25 13:20] LABS: Alanine Aminotransferase 24 U/L (0-31); Albumin Level 4.4 g/dL (3.5-5.0); Alkaline Phosphatase 48 U/L (39-117); Anion Gap 11 (12-20); Aspartate Amino Transferase 25 U/L (5-31); Bilirubin Total 1.2 mg/dL (0.0-1.0); Blood Urea Nitrogen 14 mg/dL (9-16); Calcium 9.1 mg/dL (8.4-10.2); Carbon Dioxide 27 mmol/L (22-29); Chloride 107 mmol/L (96-108); Creatinine Clr Calc Pharmacy 97.6; Estimated Glomerular Filt Rate > 60; Glucose Random 115 mg/dL (60-115); Lipase 17 U/L (8-78); Potassium 3.5 mmol/L (3.3-5.1); Sodium 141 mmol/L (135-145); Total Protein 7.5 g/dL (6.5-8.0)
[2024-02-25 13:31] LABS: HCG Quantitative < 2 mIU/mL
[2024-02-25] MEDS: Ondansetron ODT 4 MG TAB.RAPDIS TRANSLINGU (16:17)
[2024-02-25 16:19] VITALS: BP 106/72; PULSE 105; RESP 19; TEMP 36.6; O2SAT 98
[2024-02-25 19:47] VITALS: BP 112/87; PULSE 102; RESP 20; TEMP 36.9; O2SAT 98
[2024-02-25] MEDS: Dicyclomine HCl 10 MG CAPSULE 20 MG PO (21:06)
[2024-02-25] MEDS: 0.9 % Sodium Chloride 1,000 ML 999 ML IV (21:13)
[2024-02-25] MEDS: Prochlorperazine Edisylate 10 MG/2 ML VIAL IVPUSH (21:14)
[2024-02-25] MEDS: diphenhydrAMINE HCL 50 MG/ML VIAL 25 MG IVPUSH (21:14)
[2024-02-25 21:57] VITALS: BP 95/48; PULSE 92; RESP 20; TEMP 36.8; O2SAT 99
[2024-02-25 23:24] VITALS: BP 100/65; PULSE 94; RESP 20; TEMP 36.8; O2SAT 100
== END 2024-02-25 23:31 | disposition home or self-care (01) ==
PROVIDERS: Physician Assistant; Emergency Provider Emergency Medicine Emergency Medical Services; PCP Family Medicine
DX: K52.9 Noninfective gastroenteritis and colitis, unspecified (principal); K76.9 Liver disease, unspecified; R11.2 Nausea with vomiting, unspecified; R10.2 Pelvic and perineal pain; Z79.899 Other long term (current) drug therapy; Z87.891 Personal history of nicotine dependence
CPT/HCPCS: 36415; 76705; 80053; 81001; 83690; 84702; 85025; 96361; 96374; 96375; 99284; J0737; J1200

== ENCOUNTER 2024-04-24 11:23 | Outpatient (REF) | payer MEDICAID, SELFPAY ==
--- OUTSIDE RECORDS SUMMARY | 2024-04-24 12:12 | XMS_ITS | Encounter Summary ---
Author Organization [employer] Address [address] [place] [address] Care Team Providers Care Horseshoer Name Role Phone BrennanKarime cabrera Primary Care Provider + [phone] Reason for Visit * Reason Onset Date Comments Results 03/27/2024 Encounter Details Date Type Department Care Team ([facility] st Contact Info) Description 03/27/2024 Telephone [facility] MEDICINE [address] [place], [place] [id number] Winnie Stratton RN [address] [place] [address] Results Social History Tobacco Use Types Packs/Day Years Used Date Smoking Tobacco: Former Cigarettes Passive Smoke Exposure: Past Smokeless Tobacco: Never Alcohol Use Standard Drinks/Week Comments Never 0 (1 standard drink = 0.6 oz pur e alcohol) Depression Answer Date Recorded Patient Health Questionnaire-9 Score 0 05/16/2022 Housing Stability Answer Date Recorded What is your housing situation today? I have genny bhatt 01/16/[address] you li ve. Do you have problems with any of the following? None of the above 01/16/2024 Food Insecurity Answer Date Recorded Within the past 12 months, y ou worried that your food would run out before you got money to buy more: Never True 01/16/2024 Within the past 12 months,th e food you bought just didn't last and you didn't have enough money to get more: Never True 09/2023 Transportation Answer Date Recorded In the past 12 months, has l ack of transportation kept you from medical appts, meetings, work or from getting things needed for daily living? No 01/16/2024 Utilities Answer Date Recorded In the past 12 months, has t he electric, gas, oil or water company threatened to shut off services in your home? No 01/16/2024 Depression Answer Date Recorded Patient Health Questionnaire-2 Score 0 05/16/2022 Internet Access Answer Date Recorded Internet Access Q1 Yes 01/16/2024 Internet Access Q2 Not on file 01/16/2024 Comments Unknown Sex and Gender Information Value Date Recorded Sex Assigned at Female 01/08/2022 10:17 AM EDT Legal Sex Female 10:17 AM EDT Gender Identity Female 01/08/2022 10:17 AM EDT Sexual Orientation Straight 01/08/2022 10 :17 AM EDT documented as of this encounter Miscellaneous Notes * Telephone Encounter - Winnie Stratton RN - 03/27/2024 12:04 PM EST RN reviewed pelvic MRI results with PCP. MRI did not show any masses however the findings were consistent with adenomyosis (which is endometrial tissue growing into the uterine wall. If patient is still symptomatic, patient should f/u with P[employer] EQUIP[employer]CH[employer] IN[employer]. TC placed to patient [phone] in regards to above message. Patient reports she would like to follow up with [employer] as she is symptomatic. Patient reports her menstrual period are extremely heavy, her cramps feel like contractions and she becomes very nauseous during her menstrual cycle and at times vomits. Patient advised to call P[employer] [facility] office (Dr. Mcguire's office) to schedule a f/u appointment. Patient advised RN will fax MRI results to their office for them to review and determine best POC. Patient verbalized understanding. Patient to f/u PRN. RN called Dr. Mcguire's office at [phone] to obtain fax number. RN was informed fax number is [phone]. RN has faxed MRI results, confirmation page received. documented in this encounter Plan of Treatment Upcoming Encounters Date Type Department Care Team (Late st Contact Info) Description 04/30/2024 1:30 PM EST Clinical Support [address] [address] Jacqueline Abraham RN documented as of this encounter Visit Diagnoses Not on filedocumented in this encounter Additional Health Concerns Assessment Noted Time PHQ-9 Depression Total Score: 0 05/17/19 23 9:39 AM EST documented as of this encounter Care Teams Horseshoer Relationship Specialty Start Date End Date Karime Olguin DO [address] [place] [address] PCP - General Family Medicine 03/11/18 documented as of this encounter
--- OUTSIDE RECORDS SUMMARY | 2024-04-24 12:12 | XMS_ITS | Encounter Summary ---
Author Organization [employer] Address [address] [place] [address] Care Team Providers Care Coal Dumping Equipment Operator Name Role Phone Karime Olguin DO Primary Care Provider + [phone] Reason for Visit * Reason Comments Med Refill Encounter Details Date Type Department Care Team ([facility] st Contact Info) Description 04/22/2024 Refill [facility] MEDICINE [address] [place] [address] Karime Olguin DO [address] [place] [address] Chronic neck pain Social History Tobacco Use Types Packs/Day Years Used Date Smoking Tobacco: Former Cigarettes Passive Smoke Exposure: Past Smokeless Tobacco: Never Alcohol Use Standard Drinks/Week Comments Never 0 (1 standard drink = 0.6 oz pur e alcohol) Depression Answer Date Recorded Patient Health Questionnaire-9 Score 11 04/24/2024 Patient Health Questionnaire-9 Score 11 04/24/2024 Last PHQ-9: Questionnaire Data Not on file 0 04/24/2024 Housing Stability Answer Date Recorded What is [...] Answer Date Recorded Patient Health Questionnaire-2 Score 2 04/24/2024 Internet Access Answer Date Recorded Internet Access Q1 Yes 01/16/2024 Internet Access Q2 Not on file 01/16/2024 Comments Unknown Sex and Gender Information Value Date Recorded Sex Assigned at Female 01/08/2022 10:17 AM EDT Legal Sex Female 10:17 AM EDT Gender Identity Female 01/08/2022 10:17 AM EDT Sexual Orientation Straight 01/08/2022 10 :17 AM EDT documented as of this encounter Plan of Treatment Upcoming Encounters Date Type Department Care Team (Late st Contact Info) Description 04/30/2024 1:30 PM EST Clinical Support [facility] MEDICINE [address] [place] [address] Jacqueline Abraham RN documented as of this encounter Visit Diagnoses Diagnosis Chronic neck pain Cervicalgia documented in this encounter Additional Health Concerns Assessment Noted Time PHQ-9 Depression Total Score: 0 05/17/19 23 9:39 AM EST documented as of this encounter Care Teams Coal Dumping Equipment Operator Relationship Specialty Start Date End Date Karime Olguin DO [address] [place] [address] PCP - General Family Medicine 03/11/18 documented as of this encounter
--- OUTSIDE RECORDS SUMMARY | 2024-04-24 12:12 | XMS_ITS | Encounter Summary ---
Author Organization [employer] Address [address] [place] [address] Care Team Providers Care Plumber Cub Name Role Phone BalKarime noriega Primary Care Provider + [phone] Reason for Visit * Reason Comments Follow-up Encounter Details Date Type Department Care Team ([facility] Contact Info) Description 04/24/2024 10:15 AM EST Office Visit [facility] MEDICINE [address] [place] [address] Jaz Henry ANP [address] [place] [address] On pre-exposure prophylaxis for HIV (Primary Dx); Encounter for immunization Social History Tobacco Use Types Packs/Day Years Used Date Smoking Tobacco: Every Day Cigarettes Passive Smoke Exposure: Past Smokeless Tobacco: Never Tobacco Cessation:Ready to Q uit: Not Asked; Counseling Given: Not Answered Alcohol Use Standard Drinks/Week Comments Never 0 [...] AM EDT documented as of this encounter Last Filed Vital Signs Vital Sign Reading Time Taken Comments Blood Pressure 111/71 04/24/2024 10:40 AM EST Pulse 105 04/24/2024 10:40 AM EST Temperature 36.9 ??C (98.5 ??F) 04/24/2024 10:[address] Respiratory Rate 14 04/24/2024 10:40 AM EST Oxygen Saturation 100% 04/24/2024 10:40 AM EST Inhaled Oxygen Concentration - - Weight 68.5 kg (151 lb) 04/24/2024 10:40 AM EST Height - - Body Mass Index 27.62 01/23/2024 11:38 AM EST documented in this encounter Plan of Treatment Upcoming Encounters Date Type Department Care Team (Late st Contact Info) Description 04/30/2024 1:30 PM EST Clinical Support [facility] MEDICINE [address] [place] [id number] Jacqueline Abraham RN Scheduled Orders Name Type Priority Associated Diagnoses Orde r Schedule HIV-1/2 Antigen and Antibodies, Fourth Generation, with Reflexes Lab Routine On pre-exposure prophylaxis for HIV Expected: 04/24/2024 (Approximate), Expires: 04/24/2025 documented as of this encounter Visit Diagnoses Diagnosis On pre-exposure prophylaxis for HIV- Primary Encounter for immunization documented in this encounter Additional Health Concerns Assessment Noted Time PHQ-9 Depression Total Score: 11 04/24/2 025 11:09 AM EST documented as of this encounter Care Teams Plumber Cub Relationship Specialty Start Date End Date Karime Olguin DO [address] [place] [address] PCP - General Family Medicine 03/11/18 documented as of this encounter
--- OUTSIDE RECORDS SUMMARY | 2024-04-24 12:12 | XMS_ITS | Encounter Summary ---
Author Organization [employer] Address [address] [place] [address] Care Team Providers Care Body Trimmer Name Role Phone Karime Olguin DO Primary Care Provider + [phone] Reason for Visit * Reason Comments Med Refill Encounter Details Date Type Department Care Team ([facility] st Contact Info) Description 04/21/2024 Refill [facility] MEDICINE [address] [place] [address] Karime Olguin DO [address] [place] [address] Chronic neck pain Social History Tobacco Use [...] Description 04/30/2024 1:30 PM EST Clinical Support [facility] MEDICINE [address] [place] [address] Jacqueline Abraham RN documented as of this encounter Visit Diagnoses Diagnosis Chronic neck pain Cervicalgia documented in this encounter Additional Health Concerns Assessment Noted Time PHQ-9 Depression Total Score: 0 05/17/19 23 9:39 AM EST documented as of this encounter Care Teams Body Trimmer Relationship Specialty Start Date End Date Karime Olguin DO [address] [place] [address] PCP - General Family Medicine 03/11/18 documented as of this encounter
--- OUTSIDE RECORDS SUMMARY | 2024-04-24 12:12 | XMS_ITS | Encounter Summary ---
Author Organization [employer] Address [address] [place] [address] Care Team Providers Care Truck Car And Bus Cleaner Name Role Phone BalKarime noriega Primary Care Provider + [phone] Reason for Visit * Reason Comments Med Refill Encounter Details Date Type Department Care Team ([facility] st Contact Info) Description 12/02/2023 Refill [facility] MEDICINE [address] [place] [address] Morena Boyd MD [address] [place] [address] Chronic neck pain Social History Tobacco Use [...] housing situation today? I have genny bhatt 12/31/[address] you li ve. Do you have problems with any of the following? None of the above 12/31/2022 Food Insecurity Answer Date Recorded Within the past 12 months, y ou worried that your food would run out before you got money to buy more: Never True 12/31/2022 Within the past 12 months,th e food you bought just didn't last and you didn't have enough money to get more: Never True Transportation Answer Date Recorded In the past 12 months, has l ack of transportation kept you from medical appts, meetings, work or from getting things needed for daily living? No 12/31/2022 Utilities Answer Date Recorded In the past 12 months, has t he electric, gas, oil or water company threatened to shut off services in your home? No 12/31/2022 Depression Answer Date Recorded Patient Health Questionnaire-2 Score 0 05/16/2022 Comments Unknown Sex and Gender Information Value [...] Description 04/30/2024 1:30 PM EST Clinical Support [facility] MEDICINE [address] [place] [address] Jacqueline Abraham RN documented as of this encounter Visit Diagnoses Diagnosis Chronic neck pain Cervicalgia documented in this encounter Additional Health Concerns Assessment Noted Time PHQ-9 Depression Total Score: 0 05/17/19 9:39 AM EST documented as of this encounter Care Teams Truck Car And Bus Cleaner Relationship Specialty Start Date End Date Karime Olguin DO [address] [place] [address] PCP - General Family Medicine 03/11/18 documented as of this encounter
--- OUTSIDE RECORDS SUMMARY | 2024-04-24 12:12 | XMS_ITS | Encounter Summary ---
Author Organization [facility] Address [address] 7[address] [place] [address] Care Team Providers Care Director Of Gift Planning Name Role Phone Karime Olguin DO Primary Care Provider + [phone] Reason for Visit * Reason Onset Date Comments Appointment Request 04/13/2024 Encounter Details Date Type Department Care Team ([facility] Contact Info) Description 04/13/2024 Telephone [facility] [address] [place] [address] Karime Olguin DO [address] [place] [address] Appointment Request Social History Tobacco Use Types Packs/Day Years [...] encounter Miscellaneous Notes * Telephone Encounter - Keiko Ingram - 04/21/2024 8:29 AM EST Tc from pt returning phone call. * Telephone Encounter - Jacqueline Abraham RN - 04/14/2024 3:02 PM EST Return TC to patient, no answer. L/M asking her to call back when she's available. 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 documented in this encounter Plan of Treatment Upcoming Encounters Date Type Department Care Team (Late st Contact Info) Description 04/30/2024 1:30 PM EST Clinical Support [facility] [address] [place] [id number] Jacqueline Abraham, RN documented as of this encounter Visit Diagnoses Not on filedocumented in this encounter Additional Health Concerns Assessment Noted Time PHQ-9 Depression Total Score: 0 05/17/19 23 9:39 AM EST documented as of this encounter Care Teams Director Of Gift Planning Relationship Specialty Start Date End Date Karime Olguin DO [address] [place] [address] PCP - General Family Medicine 03/11/18 documented as of this encounter
--- OUTSIDE RECORDS SUMMARY | 2024-04-24 12:12 | XMS_ITS | Clinical Summary ---
Author Organization [facility] Address [address] [place] [address] Care Team Providers Care Tool And Die Maker/Designer Name Role Phone Unavailable Primary Care Provider Unavailabl e Social History Tobacco Use Types Packs/Day Years Used Date Smoking Tobacco: Never Assessed Sex and Gender Information Value Date Recorded Sex Assigned at Not on file Gender Identity Not on file Sexual Orientation Not on file Plan of Treatment Health Maintenance Due Date Last Done Comments Hepatitis B Vaccines (1 of 3 - 3-dose series) 1988 Hepatitis C Screening 1988 COVID-19 Vaccine (#1) 02/09/1989 Depression Screening 2000 Preventative Health Evaluation 2006 DTap / Tdap / Td (1 - Tdap) 08/11/2007 Cervical Cancer Screening (P ap Smear) 2009 Influenza Vaccine (#1) 2023 Pneumococcal Vaccine Aged Out No long er eligible based on patient's age to complete this topic RSV Ped < 20 months Aged Out No longe r eligible based on patient's age to complete this topic
--- OUTSIDE RECORDS SUMMARY | 2024-04-24 12:12 | XMS_ITS | Encounter Summary ---
Author Organization [employer] Address [address] [place] [address] Care Team Providers Care Link Knitting Machine Operator Name Role Phone BalKarime noriega Primary Care Provider + [phone] Encounter Details Date Type Department Care Team (Late st Contact Info) Description 04/09/2024 Orders Only [facility] [address] [place] [address] Karly Gaspar RN Social History Tobacco Use Types Packs/Day Years [...] Description 04/30/2024 1:30 PM EST Clinical Support [address] [address] Jacqueline Abraham RN documented as of this encounter Procedures Procedure Name Priority Date/Time Associated Diagnosis Comments CHLAMYDIA/GONORRHEA VAGINAL SWAB ([place] [facility]) Routine 04/03/2024 CHLAMYDIA/GONORRHEA THROAT SWAB ([facility]) Routine 04/03/2024 SYPHILIS ABS ([facility]) Routine 04/03/2024 HEPATITIS C ANTIBODY ([facility]) Routine 04/03/2024 HIV ANTIBODY/ANTIGEN ([facility]) Routine 04/03/2024 documented in this encounter Results * HIV Ab/Ag ([place] [facility]) (04/03/2024) HIV Ag/Ab Nonreactive Blood 04/03/2024 us Historical Provider LAB BLOOD ORDERABLES [place] Result * Hepatitis C Antibody ([place] [facility]) (04/03/2024) Hepatitis C Ab Nonreactive Blood 04/03/2024 us Historical Provider LAB BLOOD ORDERABLES [place] Result * Syphilis Antibodies ([facility]) (04/03/2024) Syphilis Abs Nonreactive Borderline, Nonreactive, Weakly Reactive, Inconclusive, Specimen unsatisfactory for evaluation Blood Venous blood specimen / Unknown 04/03/2024 [facility] Provider MD LAB BLOOD ORDERABLES [place] Result * Chlamydia/Gonorrhea Throat Swab ([facility]) (04/03/2024) Chlamydia Throat Swab Negative Gonorrhea Throat Swab Negative Swab 04/03/2024 [facility] Provider LAB MICROBIOLOGY - GENERA L ORDERABLES Final Result * Chlamydia/Gonorrhea Vaginal Swab ([facility]) (04/03/2024) Chlamydia Vaginal Swab Negative Negative, Indeterminate, None Detected, Invalid, Specimen unsatisfactory for evaluation, Weakly Positive Gonorrhea Vaginal Swab Negative Negative, Indeterminate, None Detected, Invalid, Specimen unsatisfactory for evaluation, Weakly Positive Swab Vaginal structure / Unknown 04/03/2024 [facility] Provider LAB MICROBIOLOGY - GENERA L ORDERABLES Final Result documented in this encounter Visit Diagnoses Not on filedocumented in this encounter Additional Health Concerns Assessment Noted Time PHQ-9 Depression Total Score: 0 05/17/19 23 9:39 AM EST documented as of this encounter Care Teams Link Knitting Machine Operator Relationship Specialty Start Date End Date Karime Olguin DO [address] [place] [phone] PCP - General Family Medicine 03/11/18 documented as of this encounter
--- OUTSIDE RECORDS SUMMARY | 2024-04-24 12:13 | XMS_ITS | Encounter Summary ---
Author Organization [email or web address] Address [address] [place] [address] Care Team Providers Care Recording Clerk Name Role Phone ClauKarime Primary Care Provider + [phone] Reason for Visit * Reason Comments Med Refill Encounter Details Date Type Department Care Team ([facility] st Contact Info) Description 10/07/2023 Refill [facility] [address] [place] [address] Davdi Lopez MD [address] [place] [address] Social History Tobacco Use Types Packs/Day Years [...] Description 04/30/2024 1:30 PM EST Clinical Support [facility] [address] [place] [address] Jacqueline Abraham RN documented as of this encounter Visit Diagnoses Not on filedocumented in this encounter Additional Health Concerns Assessment Noted Time PHQ-9 Depression Total Score: 0 05/17/19 9:39 AM EST documented as of this encounter Care Teams Recording Clerk Relationship Specialty Start Date End Date Karime Olguin DO [address] [place] [address] PCP - General Family Medicine 03/11/18 documented as of this encounter
--- OUTSIDE RECORDS SUMMARY | 2024-04-24 12:13 | XMS_ITS | Encounter Summary ---
Author Organization [employer] Address [address] [place] [address] Care Team Providers Care Time Analysis Clerk Name Role Phone Karime Olguin DO Primary Care Provider + [phone] Encounter Details Date Type Department Care Team ([facility] st Contact Info) Description 01/29/2024 Telephone [facility] [address] [place] [address] Karime Olguin DO [address] [place] [address] Social History Tobacco Use Types Packs/Day Years [...] Description 04/30/2024 1:30 PM EST Clinical Support [facility] [address] [place] [address] Jacqueline Abraham RN documented as of this encounter Visit Diagnoses Not on filedocumented in this encounter Additional Health Concerns Assessment Noted Time PHQ-9 Depression Total Score: 0 05/17/19 23 9:39 AM EST documented as of this encounter Care Teams Time Analysis Clerk Relationship Specialty Start Date End Date Karime Olguin DO [address] [place] [address] PCP - General Family Medicine 03/11/18 documented as of this encounter
--- OUTSIDE RECORDS SUMMARY | 2024-04-24 12:13 | XMS_ITS | Encounter Summary ---
Author Organization [employer] Address [address] [place] [address] Care Team Providers Care Manager Parking Name Role Phone ClauKarime Primary Care Provider + [phone] Reason for Visit * Reason Comments Med Refill Encounter Details Date Type Department Care Team ([facility] st Contact Info) Description 03/05/[address] [facility] [address] [place] [address] David Lopez MD [address] [place] [address] Social History Tobacco Use Types Packs/Day Years [...] Description 04/30/2024 1:30 PM EST Clinical Support [facility] [address] [place] [address] Jacqueline Abraham RN documented as of this encounter Visit Diagnoses Not on filedocumented in this encounter Additional Health Concerns Assessment Noted Time PHQ-9 Depression Total Score: 0 05/17/19 23 9:39 AM EST documented as of this encounter Care Teams Manager Parking Relationship Specialty Start Date End Date Karime Olguin DO [address] [place] [address] PCP - General Family Medicine 03/11/18 documented as of this encounter
--- OUTSIDE RECORDS SUMMARY | 2024-04-24 12:13 | XMS_ITS | Encounter Summary ---
Author Organization [employer] Address [address] 7t [place] [address] Care Team Providers Care Bag Turner Name Role Phone Karime Olguin DO Primary Care Provider + [phone] Reason for Visit * Reason Onset Date Comments Med Refill 03/21/2024 Encounter Details Date Type Department Care Team ([facility] st Contact Info) Description 03/21/2024 Refill [facility] [address] [place] [address] Karime Olguin DO [address] [place] [address] Chronic neck pain Social History Tobacco Use [...] Description 04/30/2024 1:30 PM EST Clinical Support [facility] [address] [place] [phone] Jacqueline Abraham RN documented as of this encounter Visit Diagnoses Diagnosis Chronic neck pain Cervicalgia documented in this encounter Additional Health Concerns Assessment Noted Time PHQ-9 Depression Total Score: 0 05/17/19 23 9:39 AM EST documented as of this encounter Care Teams Bag Turner Relationship Specialty Start Date End Date Karime Olguin DO [address] [place] [address] PCP - General Family Medicine 03/11/18 documented as of this encounter
--- OUTSIDE RECORDS SUMMARY | 2024-04-24 12:13 | XMS_ITS | Encounter Summary ---
Author Organization [employer] Address [address] [facility] 7t [place] [address] Care Team Providers Care Licensed Appraiser Name Role Phone Karime Olguin DO Primary Care Provider + [phone] Reason for Visit * Reason Onset Date Comments ER Follow-up 07/11/2022 Encounter Details Date Type Department Care Team ([facility] Contact Info) Description 07/11/2022 Telephone [facility] [address] [place] [address] Karime Olguin DO [address] [place] [address] ER Follow-up Social History Tobacco Use Types Packs/Day Years [...] Orientation Straight 01/08/2022 10 :17 AM EDT COVID-19 Exposure Response Date Recorded In the last 10 days, have yo u been in contact with someone who was confirmed or suspected to have Coronavirus/COVID-19? No / Unsure 08/31/2022 9:26 AM EDT documented as of this encounter Miscellaneous Notes * Telephone Encounter - Arlene Jung RN - 07/11/2022 1:23 PM EDT Triage call Pt reports going to [facility] ED 07/10 due to vomiting for 2 days. Pt reports had a terrible acid stomach . Pt reports feels better today , taking zofran as prescribed from ED and is taking small amounts of broth and tolerating it. Unable to eat solid food yet. Pt has loss of appetite at this point. Pt denies fever but has had chills/sweats , neg for diarrhea. Tele visit with Dr. Boyd 07/13 @ 900am. Pt agrees with dipsosition and home care reviewed. Insurance is verified as active prior to booking. Protocol Used: Vomiting (Adult) Protocol-Based Disposition: See in Office or Video Visit Today Override (Final) Disposition: See in Office or Video Visit within 3 Days Override Reason: Other Video visit offered and caller accepted Positive Triage Question: * Patient wants to be seen * All higher-acuity triage questions were negative Care Advice Discussed: * Reassurance and Education - Mild to Moderate Vomiting * Clear Liquids * Reasons To Call Back - Vomiting lasts for more than 2 days (48 hours) - Signs of dehydration occur - You become worse * Telephone Encounter - Virginie Wild - 07/11/2022 12:43 PM EDT Patient calling to report ED visit on 07/10/22 at [facility]. Reports to be seen for vomiting , DX with palpable gallbladder. Pt states has loss of appetite. Patient advised will forward to team nurse for follow up. Please contact at [phone] documented in this encounter Plan of Treatment Upcoming Encounters Date Type Department Care Team (Late st Contact Info) Description 04/30/2024 1:30 PM EST Clinical Support [facility] [address] [place] [address] Jacqueline Abraham RN documented as of this encounter Visit Diagnoses Not on filedocumented in this encounter Additional Health Concerns Assessment Noted Time PHQ-9 Depression Total Score: 0 05/17/19 9:39 AM EST documented as of this encounter Care Teams Licensed Appraiser Relationship Specialty Start Date End Date Karime Olguin DO [address] [place] [address] PCP - General Family Medicine 03/11/18 documented as of this encounter
--- OUTSIDE RECORDS SUMMARY | 2024-04-24 12:13 | XMS_ITS | Encounter Summary ---
Author Organization [employer] Address [address] [place] [address] Care Team Providers Care Research Professor Name Role Phone Karime Olguin Primary Care Provider [phone] Encounter Details Date Type Department Care Team (Latest Contact Info) Description 04/24/2024 Travel Social History Tobacco Use Types Packs/Day Years [...] Description 04/30/2024 1:30 PM EST Clinical Support [facility] [address] [place] [address] Jacqueline Abraham RN documented as of this encounter Visit Diagnoses Not on filedocumented in this encounter Additional Health Concerns Assessment Noted Time PHQ-9 Depression Total Score: 11 04/24/ 025 11:09 AM EST documented as of this encounter Care Teams Research Professor Relationship Specialty Start Date End Date Karime Olguin DO [address] [place] [address] PCP - General Family Medicine 03/11/18 documented as of this encounter
--- OUTSIDE RECORDS SUMMARY | 2024-04-24 12:13 | XMS_ITS | Patient Health Record ---
Author Organization [facility] Address [address] [place] [address] Care Team Providers Care Watch Leader Name Role Phone Karime Olguin M.D. Primary Care Provider Yoana vailable Tapan Dumont Unavailable [phone] REASON FOR REFERRAL No Information SOCIAL HISTORY Sex Assigned At : Social History Observation Description Sex Assigned At Unknown PLAN OF TREATMENT No Information Insurance Providers Payer Name Payer Address Payer Phone Subscriber Number Group Number Insured Name Patient Relationship to Insured Coverage Start Date Coverage End Date MEDICAID OF [facility] [address] [place] [address] [id number] INEZ HERRING Self - patient is the insured
--- OUTSIDE RECORDS SUMMARY | 2024-04-24 12:13 | XMS_ITS ---
Author Organization [facility] Address [address] [place] [phone] Care Team Providers Care Middle School Humanities Teacher Name Role Phone Karime Olguin M.D. Primary Care Provider Yoana vailable Tapan Dumont Unavailable [phone] REASON FOR VISIT DYSPEPSIA Encounters Encounter Location Date Provider Diagnosis [facility] [address] [place] [phone] 01/24/2023 Tapan Dumont PLAN OF TREATMENT No Information
--- OUTSIDE RECORDS SUMMARY | 2024-04-24 12:13 | XMS_ITS | Clinical Summary ---
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 Triglyceride 150-199 mg/dLHigh Triglyceride: 200-499 mg/dLVery High Triglyceride: greater than or equal to 5OO mg/dL Cholesterol 161 <200 mg/dL [facility] Comment:Desirable Cholestero l: less than 200 mg/dLBorderline High Cholesterol: 200-239 mg/dLHigh Cholesterol: greater than 239 mg/dL LDL Cholesterol Calculated 87 <100 mg/dL [facility] Comment:Desirable LDL: less than 100 mg/dLNear Optimal/Above Optimal LDL: 110- 129 mg/dLBorderline High LDL: 130-159 mg/dLHigh LDL: 160-189 mg/dLVery High LDL: greater than or equal to 190 mg/dL HDL Cholesterol 59 >40 mg/dL [facility] Comment:Desirable HDL: great er than 40 mg/dL Note: This HDL assay may give artificially low results in patients with liver disease. Blood Venous blood specimen / Unknown 08/30/2023 12:02 PM EDT 08/30/2023 12:58 PM EDT Karime Olguin DO LAB BLOOD ORDERABLES Final R esult [facility] [address] [place] [address] [phone] * BI US Breast Limited Right (04/30/2023 1:55 PM EST) Anatomical Region Laterality Modality Breast Right Ultrasound 04/30/2023 1:55 PM EST Narrative 05/10/2023 11:43 PM EST ? [facility] [place] ? [address] ?[place] [address] ? Ultrasound Report ? Signed ? Patient: Marcial,Karen M ?MR#: [id number] ?? [id number] ? : 1990 ?Acct:[id number] ? Age/Sex: 32 / F ?ADM Date: 04/30/23 ? Loc: HO.MAMMO ? Attending Dr: Karime Olguin DO ? Ordering Physician: Karime Olguin DO ?? Date of Service: 04/30/23 ?? Procedure(s): US breast RT limited mamm only ?? Accession Number(s): [id number] ? cc: Karime Olguin DO ? EXAMINATION: ?? US DIAGNOSTIC ULTRASOUND BREAST, RIGHT ? CLINICAL INFORMATION: ? Upper outer quadrant pain and discoloration near areolar border ?? according to patient.. ? COMPARISON: ?? October 2022 right breast sonography ? TECHNIQUE: ?? Ultrasound of the breast is performed with real-time keene scale imaging ?? and color Doppler. ? FINDINGS: ?? There is no focal suspicious finding. ??There is no solid mass, ?? architectural abnormality, duct ectasia, or edema in the soft tissue ?? planes. ? Results are discussed with the patient at time of visit. ? US/US breast RT limited mamm only ?? IMPRESSION: ?? Normal sonography of the upper outer quadrant of the right breast and ?? areolar border. ? ASSESSMENT: ? BI-RADS 1 - Negative ? RECOMMENDATION: ?? 1. Patient should be managed based on the clinical impression. ?2. ?? Otherwise, routine annual screening mammography. ? This patient's information was entered into a reminder system with a ?? target due date for their next mammogram. ? Dictated By: ?Jodie Fisher MD ? Signed By: ?<Electronically signed by Jodie Fisher MD in OV> ? 05/10/232337 ? DD/ ? TD/TT: ? Laboratory Sample Carrier: ? Procedure Note Donotuseinterpreter, Image - [facility]13/2023 [facility] [address] [place] [address] Ultrasound Report Signed Patient: Karen Ceja MMR#: [id number] : 1990Acct:[id number] Age/Sex: 32 / FADM Date: 04/30/23 Loc: HO.MAMMO Attending Dr: Karime Olguin DO Ordering Physician: Karime Olguin DO Date of Service: 04/30/23 Procedure(s): US breast RT limited mamm only Accession Number(s): [id number] cc: Karime Olguin DO EXAMINATION: US DIAGNOSTIC ULTRASOUND BREAST, RIGHT CLINICAL INFORMATION: Upper outer quadrant pain and discoloration near areolar border according to patient.. COMPARISON: October 2022 right breast sonography TECHNIQUE: Ultrasound of the breast is performed with real-time keene scale imaging and color Doppler. FINDINGS: There is no focal suspicious finding. There is no solid mass, architectural abnormality, duct ectasia, or edema in the soft tissue planes. Results are discussed with the patient at time of visit. US/US breast RT limited mamm only IMPRESSION: Normal sonography of the upper outer quadrant of the right breast and areolar border. ASSESSMENT: BI-RADS 1 - Negative RECOMMENDATION: 1. Patient should be managed based on the clinical impression. 2. Otherwise, routine annual screening mammography. This patient's information was entered into a reminder system with a target due date for their next mammogram. Dictated By: Jodie Fisher MD Signed By: <Electronically signed by Jodie Fisher MD in OV> 05/10/23 7873 DD/ 1355 TD/TT: Laboratory Sample Carrier: us Karime Olguin DO IMG US PROCEDURES Edited Res ult - Final * Thinprep PAP, HPV mRNA E6/E7 RFX HPV 16,18/45, Chlamydia/N. Gonorrhoeae (08/31/2022 10:06 AM EDT) Clinical Information: CERVIX PGA TOUR Superst[facility] LMP: 20,230,611 [facility] Prev. PAP: NO [facility] Prev. BX: NO PGA TOUR Superstoret SOURCE: None given [facility] Statement Of Adequacy: [facility] Comment: Satisfactory for evaluation. Endocervical/transformation zone component present. Interpretation/Re sult: Negative for intraepithelial lesion or malignancy. PGA TOUR Superstoret Infection Shift in vaginal juli suggestive of bacterial vaginosis. [facility] Eyewear Consultant: Fay BackTrack Comment: RK CT(ASCP) CT screening location: [address] ??[address] (Always Message) [facility] [employer] Comment: EXPLANATORY NOTE: The Pap is a screening test for cervical cancer. It is not a diagnostic test and is subject to false negative and false positive results. It is most reliable when a satisfactory sample, regularly obtained, is submitted with relevant clinical findings and history, and when the Pap result is evaluated along with historic and current clinical information. HPV nRNA E6/E7 Not Detected Not Detected [facility] Comment: Methodology: Service Desk Director-Mediated Amplification This assay detects E6/E7 viral messenger RNA (mRNA) from 14 high-risk HPV types (16,18,31,33,35,39,45,51,52,56,58,59,66,68). Cervical sources are required for HPV testing. If a vaginal source from a patient who has had a total hysterectomy with removal of cervix was submitted, please contact the testing laboratory for alternative testing options. For additional information, please refer to http://education.iZ3D/faq/GYY982x9 (This link if provided for information/ educational purposes only.) Chlamydia trachomatis RNA, TMA, Urogenital NOT DETECTED NOT DETECTED [facility] Neisseria gonorrhoeae RNA, TMA, Urogenital NOT DETECTED NOT DETECTED [facility] (Always Message) [facility] [place] [employer] Comment: The analytical performance characteristics of this assay, when used to test SurePath(TM) specimens have been determined by [facility]. The modifications have not been cleared or approved by the FDA. This assay has been validated pursuant to the CLIA regulations and is used for clinical purposes. For additional information, please refer to https://education.iZ3D/faq/FBL633 (This link is being provided for information/ educational purposes only.) Cervix 08/31/2022 10:0 6 AM EDT 09/03/2022 5:22 AM EDT Karime Olguin DO LAB PATHOLOGY ORDERABLES Fin al Result [facility] [address], [place] [address] [facility] [address] [place] [address] from Last 3 Months or Most Recently Relevant to Health Maintenance Insurance [employer] C[employer] [facility] Care Teams Finish Production Manager Relationship Specialty Start Date End Date Karime Olguin DO [address] [place] [phone] PCP - General Family Medicine 03/11/18
--- OUTSIDE RECORDS SUMMARY | 2024-04-24 12:13 | XMS_ITS | Encounter Summary ---
Author Organization [employer] Address [address] [facility] 7t [place] [address] Care Team Providers Care Apparel Designer Name Role Phone Karime Olguin DO Primary Care Provider + [phone] Reason for Visit * Reason Onset Date Comments Med Refill 07/20/2022 Encounter Details Date Type Department Care Team ([facility] Contact Info) Description 07/20/2022 Telephone [facility] [address] [place] [address] Karime Olguin DO [address] [place] [address] Med Refill Social History Tobacco Use Types Packs/Day Years [...] encounter Miscellaneous Notes * Telephone Encounter - Virginie Wild - 07/20/2022 1:04 PM EDT Tc from pt requesting a med refill for oxycodone 5 mg documented in this encounter Plan of Treatment Upcoming Encounters Date Type Department Care Team (Late st Contact Info) Description 04/30/2024 1:30 PM EST Clinical Support [facility] [address] [place] [address] Jacqueline Abraham RN documented as of this encounter Visit Diagnoses Not on filedocumented in this encounter Additional Health Concerns Assessment Noted Time PHQ-9 Depression Total Score: 0 05/17/19 9:39 AM EST documented as of this encounter Care Teams Apparel Designer Relationship Specialty Start Date End Date Karime Olguin DO [address] [place] [address] PCP - General Family Medicine 03/11/18 documented as of this encounter
--- OUTSIDE RECORDS SUMMARY | 2024-04-24 12:13 | XMS_ITS | Encounter Summary ---
Author Organization [facility] Address [address] [place] [address] 7t [place] [address] Care Team Providers Care Nurse College Name Role Phone Karime Olguin DO Primary Care Provider [phone] Encounter Details Date Type Department Care Team (Late Contact Info) Description 10/05/2022 Orders Only [facility] [address] [place] [phone] Karime Olguin DO [address] [place] [address] [phone] Social History Tobacco Use Types Packs/Day Years Used Date Smoking Tobacco: Former Cigarettes Passive Smoke Exposure: Past Smokeless Tobacco: Never Alcohol Use Standard Drinks/Week Comments Never 0 (1 standard drink = 0.6 oz pur e alcohol) Depression Answer Date Recorded Patient Health Questionnaire-9 Score 0 05/16/2022 Depression Answer Date Recorded Patient Health Questionnaire-2 [...] 04/30/2024 1:30 PM EST Clinical Support [facility] [address] [place] [address] Jacqueline Abraham RN documented as of this encounter Visit Diagnoses Not on filedocumented in this encounter Additional Health Concerns Assessment Noted Time PHQ-9 Depression Total Score: 0 05/17/19 23 9:39 AM EST documented as of this encounter Care Teams Nurse College Relationship Specialty Start Date End Date Karime Olguin DO [address] [place] [address] PCP - General Family Medicine 03/11/18 documented as of this encounter
--- OUTSIDE RECORDS SUMMARY | 2024-04-24 12:13 | XMS_ITS | Encounter Summary ---
Author Organization [employer] Address [address] [facility] 7t [place] [address] Care Team Providers Care Radio Commentator Name Role Phone Karime Olguin DO Primary Care Provider + [phone] Reason for Visit * Reason Onset Date Comments Med Refill 10/15/2022 Encounter Details Date Type Department Care Team ([facility] Contact Info) Description 10/15/2022 Telephone [facility] [address] [place] [address] Karime Olguin DO [address] [place] [address] Med Refill Social History Tobacco Use Types [...] * Telephone Encounter - Virginie Wild - 10/15/2022 8:52 AM EDT Tc from pt requesting a refill for oxyCODONE (Roxicodone) 5 MG immediate release tablet documented in this encounter Plan of Treatment Upcoming Encounters Date Type Department Care Team (Late st Contact Info) Description 04/30/2024 1:30 PM EST Clinical Support [facility] [address] [place] [address] Jacqueline Abraham RN documented as of this encounter Visit Diagnoses Not on filedocumented in this encounter Additional Health Concerns Assessment Noted Time PHQ-9 Depression Total Score: 0 05/17/19 23 9:39 AM EST documented as of this encounter Care Teams Radio Commentator Relationship Specialty Start Date End Date Karime Olguin DO [address] [place] [address] PCP - General Family Medicine 03/11/18 documented as of this encounter
--- OUTSIDE RECORDS SUMMARY | 2024-04-24 12:13 | XMS_ITS | Encounter Summary ---
Author Organization [employer] Address [address] [facility] 7t [place] [address] Care Team Providers Care Tricot Knitter Name Role Phone Karime Olguin DO Primary Care Provider + [phone] Reason for Visit * Reason Onset Date Comments Med Refill 06/14/2023 Encounter Details Date Type Department Care Team ([facility] st Contact Info) Description 06/14/2023 Refill [facility] [address] [place] [address] Karime Olguin DO [address] [place] [address] Chronic neck pain Social History Tobacco Use [...] Description 04/30/2024 1:30 PM EST Clinical Support [facility] [address] [place] [address] Jacqueline Abraham RN documented as of this encounter Visit Diagnoses Diagnosis Chronic neck pain Cervicalgia documented in this encounter Additional Health Concerns Assessment Noted Time PHQ-9 Depression Total Score: 0 05/17/19 9:39 AM EST documented as of this encounter Care Teams Tricot Knitter Relationship Specialty Start Date End Date Karime Olguin DO [address] [place] [address] PCP - General Family Medicine 03/11/18 documented as of this encounter
--- OUTSIDE RECORDS SUMMARY | 2024-04-24 12:13 | XMS_ITS | Encounter Summary ---
Author Organization [employer] Address [address] [facility] [address] [address] 7t [place] [address] Care Team Providers Care Senior Sql Server Developer Name Role Phone BalKarime noriega Primary Care Provider + [phone] Reason for Visit * Reason Comments Med Refill Encounter Details Date Type Department Care Team ([facility] st Contact Info) Description 01/27/[address] [facility] [address] [place] [address] Isis Caban MD [address] [place] [address] Chronic neck pain Social History Tobacco Use [...] PM EST Clinical Support [facility] [address] [place] [address] Jacqueline Abraham RN documented as of this encounter Visit Diagnoses Diagnosis Chronic neck pain Cervicalgia documented in this encounter Additional Health Concerns Assessment Noted Time PHQ-9 Depression Total Score: 0 05/17/19 23 9:39 AM EST documented as of this encounter Care Teams Senior Sql Server Developer Relationship Specialty Start Date End Date Karime Olguin DO [address] [place] [address] PCP - General Family Medicine 03/11/18 documented as of this encounter
[2024-04-25 03:51] LABS: HIV AB/AG Nonreactive (Nonreactive); HIV Num 1 0.08 S/CO (0.00-0.99)
[2024-04-27 08:29] LABS: TS Negative Control Passed; TS Panel A 0; TS Panel B 0; TS Positive Control Passed; TSpotTB Negative (Negative)
== END 2024-04-24 11:24 | disposition home or self-care (01) ==
LOC: HO.HHCL 11:23
PROVIDERS: Family Medicine; Visit Provider Nurse Practitioner Primary Care
DX: Z00.00 Encounter for general adult medical examination without abnormal findings (principal); Z79.899 Other long term (current) drug therapy
CPT/HCPCS: 36415; 86481; 87389

== ENCOUNTER 2024-07-24 10:00 | Outpatient (REF) | payer MEDICAID, SELFPAY ==
--- OUTSIDE RECORDS SUMMARY | 2024-07-24 10:21 | XMS_ITS ---
Author Organization [facility] Address [address] [place] [address] Care Team Providers Care Bus Monitor Name Role Phone Clau Harman, Karime Primary Care Provider Yoana Tapan Pinedo [phone] REASON FOR VISIT DYSPEPSIA Encounters Encounter Location Date Provider Diagnosis [facility] [address] [place] [phone] 01/24/2023 Tapan Dumont Plan Of Treatment No Information Progress Notes * LYLE MONSIVAISADOB:1990 (33 yo F)Acc No.[id number]:01/24/2023 Progress Notes Patient:?INEZ MONSIVAIS Provider:?Tapan Dumont MD :1990???Age:32 Y???Sex:Female D ate:01/24/2023 Address:[address] [place], [place] [id number] Pcp:Karime Olguin M.D. Subjective: * Chief Complaints: * ???1. DYSPEPSIA. * Medical History:? Objective: * Vitals:? Assessment: Plan: * Treatment: * * The named appointment provid er may or may not be the originator of this progress note, and it is not deemed complete until electronically signed by the appointment provider. Sign off status: Pending * Provider:?Tapan Dumont MD Date:? 023 Generated for Yesi wall/Shon/eTpolasmitting on:?07/24/2024 09:09 AM EDT
--- OUTSIDE RECORDS SUMMARY | 2024-07-24 10:22 | XMS_ITS | Patient Health Record ---
Author Organization [facility] Address [address] [place] [address] Care Team Providers Care Equip Maint Eng Name Role Phone Karime Olguin M.D. Primary Care Provider Yoana vailable Tapan Dumont Unavailable [phone] Reason For Referral No Information Plan Of Treatment No Information Insurance Providers Payer Name Payer Address Payer Phone Subscriber Number Group Number Insured Name Patient Relationship to Insured Coverage Start Date Coverage End Date MEDICAID [facility] [address] [place] [phone] [id number] INEZ HERRING Self - patient is the insured
[2024-07-24 11:48] LABS: Hepatitis A Antibody IgG Nonreactive (Nonreactive); ~Hepatitis A Antibody IgG 0.37 S/CO (0.00-0.99)
[2024-07-24 11:50] LABS: HBS Num1 > 1000.00 mIU/mL (0-7.99); HBc Num1 0.08 S/CO (0.00-0.79); HBsAGNum1 0.47 S/CO (0.00-0.99); HIV AB/AG Nonreactive (Nonreactive); HIV Num 1 0.07 S/CO (0.00-0.99); Hepatitis B Core Antibody Nonreactive (Nonreactive); Hepatitis B Surface Antigen Negative (Negative); ~Hepatitis B Surface Antibody REACTIVE (Nonreactive); ~Hepatitis C Antibody Nonreactive (Nonreactive)
[2024-07-24 11:54] LABS: Hematocrit 35.3 % (37.0-47.0); Hemoglobin 11.9 g/dl (12.0-16.0); Mean Corpuscular HGB Conc 33.7 g/dl (31.0-35.0); Mean Corpuscular Hemoglobin 30.2 pg (27.0-33.0); Mean Corpuscular Volume 89.6 fL (80.0-98.0); Platelet Count 293 X10*3/uL (160-400); Red Blood Count 3.94 X10*6/uL (4.20-5.50); Red Cell Distribution Width 14.9 % (11.0-16.0); White Blood Count 11.2 X10*3/uL (4.8-10.8)
[2024-07-24 12:06] LABS: Estimated Average Glucose 105 mg/dL; Hemoglobin A1C 110.3639 umol/L; Hemoglobin A1c % 5.3 % (<6.0); Total Hemoglobin (HGBA1C) 3169.3497 umol/L
[2024-07-24 12:10] LABS: Alanine Aminotransferase 18 U/L (0-31); Albumin Level 4.3 g/dL (3.5-5.0); Alkaline Phosphatase 45 U/L (39-117); Anion Gap 10 (12-20); Aspartate Amino Transferase 23 U/L (5-31); Bilirubin Direct 0.2 mg/dL (0.0-0.5); Bilirubin Total 0.5 mg/dL (0.0-1.0); Blood Urea Nitrogen 9 mg/dL (9-16); Calcium 9.3 mg/dL (8.4-10.2); Carbon Dioxide 28 mmol/L (22-29); Chloride 106 mmol/L (96-108); Cholesterol 174 mg/dL (<200); Estimated Glomerular Filt Rate > 60; Glucose Random 102 mg/dL (60-115); HDL Cholesterol 54 mg/dL (>40); LDL Cholesterol Calculated 99 mg/dL (<100); Potassium 3.6 mmol/L (3.3-5.1); Sodium 140 mmol/L (135-145); Total Protein 7.2 g/dL (6.5-8.0); Triglycerides 108 mg/dL (<150)
[2024-07-24 12:38] LABS: CT PCR NOT DETECTED (Not Detect.); Free T4 (Free Thyroxine) 0.86 ng/dL (0.71-1.85); NG PCR NOT DETECTED (Not Detect.); Thyroid Stimulating Hormone 1.31 uIU/mL (0.32-4.0)
[2024-07-26 18:48] LABS: RPR Rapid Plasma Reagin NON-REACTIVE (NON-REACTIVE)
== END 2024-07-24 10:01 | disposition home or self-care (01) ==
LOC: HO.HHCL 10:00
PROVIDERS: Visit Provider Family Medicine
DX: Z00.00 Encounter for general adult medical examination without abnormal findings (principal); Z11.3 Encounter for screening for infections with a predominantly sexual mode of transmission; Z11.4 Encounter for screening for human immunodeficiency virus [HIV]
CPT/HCPCS: 80048; 80061; 80076; 82306; 83036; 84439; 84443; 85027; 86592; 86704; 86706; 86708; 86803; 87340; 87389; 87491; 87591

== ENCOUNTER 2024-07-30 11:29 | Outpatient (REF) | payer MEDICAID, SELFPAY ==
--- OUTSIDE RECORDS SUMMARY | 2024-07-30 12:06 | XMS_ITS | Encounter Summary ---
Author Organization [employer] Address [address] [place] [address] 7 [place] [address] Care Team Providers Care Relations Mgr Name Role Phone Karime Olguin DO Primary Care Provider + [phone] Reason for Visit * Reason Onset Date Comments Med Refill 06/14/2023 Encounter Details Date Type Department Care Team ([facility] st Contact Info) Description 06/14/2023 Refill [facility] [address] [place] [address] Karime Olguin DO [address] [place] [address] Chronic neck pain Social History Tobacco Use [...] Care Team (Late st Contact Info) Description 07/31/2024 1:00 PM EDT Clinical Support [address] [address] Veronica Hendrickson, JULIA [address] [place] [address] 08/04/2024 9:30 AM EDT Immunization [facility] [address] [place] [address] documented as of this encounter Visit Diagnoses Diagnosis Chronic neck pain Cervicalgia documented in this encounter Additional Health Concerns Assessment Noted Time PHQ-9 Depression Total Score: 0 05/17/19 23 9:39 AM EST documented as of this encounter Care Teams Relations Mgr Relationship Specialty Start Date End Date Karime Olguin DO [address] [place] [address] PCP - General Family Medicine 03/11/18 documented as of this encounter
--- OUTSIDE RECORDS SUMMARY | 2024-07-30 12:06 | XMS_ITS | Encounter Summary ---
Author Organization [employer] Address [address] [place] [address] 7 [place] [address] Care Team Providers Care Subcontracts Manager Name Role Phone Karime Olguin DO Primary Care Provider + [phone] Reason for Visit * Reason Onset Date Comments Med Refill 03/21/2024 Encounter Details Date Type Department Care Team ([facility] st Contact Info) Description 03/21/2024 Refill [facility] [address] [place] [address] Karime Olguin DO [address] [place] [address] Chronic neck pain Social History Tobacco Use [...] Description 07/31/2024 1:00 PM EDT Clinical Support [address] [address] Veronica Hendrickson, JULIA [address] [place] [address] 08/04/2024 9:30 AM EDT Immunization [address] [address] documented as of this encounter Visit Diagnoses Diagnosis Chronic neck pain Cervicalgia documented in this encounter Additional Health Concerns Assessment Noted Time PHQ-9 Depression Total Score: 0 05/17/19 23 9:39 AM EST documented as of this encounter Care Teams Subcontracts Manager Relationship Specialty Start Date End Date Karime lOguin DO [address] [place] [address] PCP - General Family Medicine 03/11/18 documented as of this encounter
--- OUTSIDE RECORDS SUMMARY | 2024-07-30 12:06 | XMS_ITS | Encounter Summary ---
Author Organization [employer] Address [address] [place] [address] 7 [place] [address] Care Team Providers Care Grader Meat Name Role Phone Karime Olguin DO Primary Care Provider + [phone] Reason for Visit * Reason Onset Date Comments Med Refill 05/18/2024 Encounter Details Date Type Department Care Team ([facility] st Contact Info) Description 05/18/2024 Refill [facility] [address] [place] [address] Karime Olguin DO [address] [place] [address] Chronic neck pain Social History Tobacco Use [...] Description 07/31/2024 1:00 PM EDT Clinical Support [address] [address] Veronica Hendrickson, JULIA [address] [place] [address] 08/04/2024 9:30 AM EDT Immunization [address] [address] documented as of this encounter Visit Diagnoses Diagnosis Chronic neck pain Cervicalgia documented in this encounter Additional Health Concerns Assessment Noted Time PHQ-9 Depression Total Score: 11 2 025 11:09 AM EST documented as of this encounter Care Teams Grader Meat Relationship Specialty Start Date End Date Karime Olguin DO [address] [place] [address] PCP - General Family Medicine 03/11/18 documented as of this encounter
--- OUTSIDE RECORDS SUMMARY | 2024-07-30 12:06 | XMS_ITS | Clinical Summary ---
Author Organization [facility] Address [address] [place] [address] Care Team Providers Care Painter Sign Maintenance Name Role Phone Unavailable Primary Care Provider [...]
--- OUTSIDE RECORDS SUMMARY | 2024-07-30 12:06 | XMS_ITS | Encounter Summary ---
Author Organization [employer] Address [address] [facility] 7t [place] [address] Care Team Providers Care Corporate Treasurer Name Role Phone BalKarime noriega Primary Care Provider + [phone] Reason for Visit * Reason Comments Med Refill Encounter Details Date Type Department Care Team ([facility] st Contact Info) Description 12/02/2023 Refill [facility] [address] [place] [address] Morena Boyd MD [address] [place] [address] Chronic neck pain Social History Tobacco Use [...] Description 07/31/2024 1:00 PM EDT Clinical Support [address] [address] Veronica Hendrickson, RN [address] [place] [address] 08/04/2024 9:30 AM EDT Immunization [address] [address] documented as of this encounter Visit Diagnoses Diagnosis Chronic neck pain Cervicalgia documented in this encounter Additional Health Concerns Assessment Noted Time PHQ-9 Depression Total Score: 0 05/17/19 23 9:39 AM EST documented as of this encounter Care Teams Corporate Treasurer Relationship Specialty Start Date End Date Karime Olguin DO [address] [place] [address] PCP - General Family Medicine 03/11/18 documented as of this encounter
--- OUTSIDE RECORDS SUMMARY | 2024-07-30 12:06 | XMS_ITS | Encounter Summary ---
Author Organization [employer] Address [address] [facility] 7[address] [place] [address] Care Team Providers Care [employer] Name Role Phone Karime Olguin DO Primary Care Provider + [phone] Reason for Visit * Reason Comments Med Refill Encounter Details Date Type Department Care Team ([facility] st Contact Info) Description 05/18/2024 Refill [facility] [address] [place] [address] Karime Olguin DO [address] [place] [address] Chronic neck pain Social History Tobacco Use [...] Description 07/31/2024 1:00 PM EDT Clinical Support [address] [address] Veronica Hendrickson, JULIA [address] [place] [id number] 08/04/2024 9:30 AM EDT Immunization [address] [address] documented as of this encounter Visit Diagnoses Diagnosis Chronic neck pain Cervicalgia documented in this encounter Additional Health Concerns Assessment Noted Time PHQ-9 Depression Total Score: 11 025 11:09 AM EST documented as of this encounter Care Teams [employer] Relationship Specialty Start Date End Date Karime Olguin DO [address] [place] [id number] PCP - General Family Medicine 03/11/18 documented as of this encounter
--- OUTSIDE RECORDS SUMMARY | 2024-07-30 12:06 | XMS_ITS | Patient Health Record ---
Author Organization [facility] Address [address] [place] [address] Care Team Providers Care After School Program Director Name Role Phone Karime Olguin M.D. Primary Care Provider Yoana vailable Tapan Dumont Unavailable [phone] Reason For Referral No Information Plan Of Treatment No Information Insurance Providers Payer Name Payer Address Payer Phone Subscriber Number Group Number Insured Name Patient Relationship to Insured Coverage Start Date Coverage End Date MEDICAID OF [facility] [address] [place] [phone] [id number] [id number] HERRING Self - patient is the insured
--- OUTSIDE RECORDS SUMMARY | 2024-07-30 12:06 | XMS_ITS | Encounter Summary ---
Author Organization [employer] Address [address] [facility] 7t [place] [address] Care Team Providers Care Field Placement Director Name Role Phone Karime Olguin DO Primary Care Provider + [phone] Reason for Visit * Reason Comments Med Refill Encounter Details Date Type Department Care Team ([facility] st Contact Info) Description 04/22/2024 Refill [facility] [address] [place] [address] Karime Olguin DO [address] [place] [address] Chronic neck pain Social History Tobacco Use [...] AM EDT documented as of this encounter Functional Status * Over the past 2 weeks, how often have you been bothered by any of the following problems? Question Answer Date of Assessment Author Patient Health Questionnaire -2 Score 2 04/24/2024 11:09 AM Mable Snowden [place] * Little interest or pleasure in doing things Answer Date of Assessment Author Several days 04/24/2024 11:09 AM Mable Snowden [place] * Feeling down, depressed, or hopeless Answer Date of Assessment Author Several days 04/24/2024 11:09 AM Mable Snowden [place] * Trouble falling or staying asleep, or sleeping too much Answer Date of Assessment Author More than half the days 04/24/2024 11:09 AM Mable Snowden [place] * Feeling tired or having little energy Answer Date of Assessment Author More than half the days 04/24/2024 11:09 AM Mable Snowden [place] * Poor appetite or overeating Answer Date of Assessment Author Not at all 04/24/2024 11:09 AM Mable Snowden [place] * Feeling bad about yourself - or that you are a failure or have let yourself or your family down Answer Date of Assessment Author Several days 04/24/2024 11:09 AM Mable Snowden [place] * Trouble concentrating on things, such as reading the newspaper or watching television Answer Date of Assessment Author Nearly every day 04/24/2024 11:09 AM Mable Snowden [place] * Moving or speaking so slowly that other people could have noticed? Or the opposite - being so fidgety or restless that you have been moving around a lot more than usual. Answer Date of Assessment Author Several days 04/24/2024 11:09 AM Mable Snowden [place] * Thoughts that you would be better off or hurting yourself in some way Answer Date of Assessment Author Not at all 04/24/2024 11:09 AM Mable Snowden [place] * Patient Health Questionnaire-9 Score Answer Date of Assessment Author 11 04/24/2024 11:09 AM Mable Snowden [place] * How difficult have these problems made it for you to do your work, take care of things at home, or get along with other people? Answer Date of Assessment Author Somewhat difficult 04/24/2024 11:09 AM Mable Shea [place] * Over the last 2 weeks, how often have you been bothered by any of the following problems? Question Answer Date of Assessment Author Feeling nervous, anxious, or on edge 3 04/24/2024 11:09 AM Mable Snowden [place] Not being able to stop or co ntrol worrying 3 04/24/2024 11:09 AM Mable Snowden [place] Worrying too much about diff erent things 3 04/24/2024 11:09 AM Mable Snowden [place] Trouble relaxing 1 04/24/2024 11:09 AM Mable Snowden [place] Being so restless that it is hard to sit still 1 04/24/2024 11:09 AM Mable Snowden [place] Becoming easily annoyed or irritable 2 04/24/2024 11:09 AM Mable Snowden [place] Feeling afraid as if somethi ng awful might happen 0 04/24/2024 11:09 AM Mable Snowden [place] KARI-7 Total Score 13 04/24/2024 11:09 AM Mable Snowden [place] documented as of this encounter Plan of Treatment Upcoming Encounters Date Type Department Care Team (Late st Contact Info) Description 07/31/2024 1:00 PM EDT Clinical Support [facility] [address] [facility] [address] Veronica Hendrickson, RN [address] [place] [address] 08/04/2024 9:30 AM EDT Immunization [facility] [address] [place] [address] documented as of this encounter Visit Diagnoses Diagnosis Chronic neck pain Cervicalgia documented in this encounter Additional Health Concerns Assessment Noted Time PHQ-9 Depression Total Score: 0 05/17/19 23 9:39 AM EST documented as of this encounter Care Teams Field Placement Director Relationship Specialty Start Date End Date Karime Olguin DO [address] [place] [address] PCP - General Family Medicine 03/11/18 documented as of this encounter
--- OUTSIDE RECORDS SUMMARY | 2024-07-30 12:07 | XMS_ITS | Clinical Summary ---
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 Gonorrhoeae (08/31/2022 10:06 AM EDT) Clinical Information: CERVIX [employer] LMP: [id number] [employer] Prev. PAP: NO [employer] Diagnost Prev. BX: NO [employer] [facility] SOURCE: None given [employer] Statement Of Adequacy: [employer] Comment: Satisfactory for evaluation. Endocervical/transformation zone component present. Interpretation/Re sult: Negative for intraepithelial lesion or malignancy. [employer] Infection Shift in vaginal juli suggestive of bacterial vaginosis. [employer] Tibco Developer: Fay Trendablt Comment: RK, CT(ASCP) CT screening location: [address] ??[address] (Always Message) Que [employer] Books Comment: EXPLANATORY NOTE: The Pap is a [...] HPV nRNA E6/E7 Not Detected Not Detected [employer] Comment: Methodology: Personnel Generalist Manager-Mediated Amplification This assay detects E6/E7 viral messenger RNA (mRNA) from 14 high-risk HPV types (16,18,31,33,35,39,45,51,52,56,58,59,66,68). Cervical sources are required for HPV testing. If a vaginal source from a patient who has had a total hysterectomy with removal of cervix was submitted, please contact the testing laboratory for alternative testing options. For additional information, please refer to [email or web address][employer]faq/TYF762q2 (This link if provided for information/ educational purposes only.) Chlamydia trachomatis RNA, TMA, Urogenital NOT DETECTED NOT DETECTED [employer] Neisseria gonorrhoeae RNA, TMA, Urogenital NOT DETECTED NOT DETECTED [employer] (Always Message) Que [employer] Books Comment: The analytical performance characteristics of this assay, when used to test SurePath(TM) specimens have been determined by [facility]. The modifications have not been cleared or approved by the FDA. This assay has been validated pursuant to the CLIA regulations and is used for clinical purposes. For additional information, please refer to https://[employer]faq/NUY666 (This link is being provided for information/ educational purposes only.) Cervix 08/31/2022 10:0 6 AM EDT 09/03/2022 5:22 AM EDT us Karime Olguin DO LAB PATHOLOGY ORDERABLES Fin al Result [facility] [address], [place] [address] [facility] [place] [employer] [address] [place] [address] from Last 3 Months or Most Recently Relevant to Health Maintenance Insurance [place], [place] [facility] C3 [facility] C3 [facility] Care Teams Wax Pot Tender Relationship Specialty Start Date End Date Karime Olguin DO [address] [place] [address] PCP - General Family Medicine 03/11/18
--- OUTSIDE RECORDS SUMMARY | 2024-07-30 12:07 | XMS_ITS | Encounter Summary ---
Author Organization [employer] Address [address] [facility] 7 [place] [address] Care Team Providers Care Home Lighting Adviser Name Role Phone Karime Olguin DO Primary Care Provider + [phone] Reason for Visit * Reason Onset Date Comments Lab Add On 07/24/2024 Encounter Details Date Type Department Care Team ([facility] Contact Info) Description 07/24/2024 Telephone [facility] MEDICINE [address] [place] [address] Karime Olguin DO [address] [place] [address] Lab Add On Social History Tobacco Use Types Packs/Day Years [...] Telephone Encounter - Winnie Stratton RN - 07/29/2024 10:04 AM EDT RN [place] [facility] [place] [phone] to inquire on status of iron and ferritin results from add on. RN was informed the lab did not pull the order for the add on. RN informed the order was faxed and placedelectronically however the lab reports they no longer have the specimen in order to complete the add on. Patient will need to return to the lab. RN has notified PCP. * Telephone Encounter - Winnie Stratton RN - 07/24/2024 3:54 PM EDT PCP requested RN add on an iron and ferritin panel to BW drawn today. RN [place] [facility] [place] and requested add on. RN was advised lab can be added on and order needs to be faxed to [phone]. RN will await add-on results. documented in this encounter Plan of Treatment Upcoming Encounters Date Type Department Care Team (Late st Contact Info) Description 07/31/2024 1:00 PM EDT Clinical Support [facility] MEDICINE [address] [place] [address] Veronica Hendrickson, RN [address] [place] [address] 08/04/2024 9:30 AM EDT Immunization [facility] [address] [place] [address] Scheduled Orders Name Type Priority Associated Diagnoses Orde r Schedule Ferritin Lab Routine Low hemoglobin Expected: 07/24/2024, Expires: 07/24/2025 Iron And Total Iron Binding Capacity Lab Routine Low hemoglobin Expected: 07/24/2024, Expires: 07/24/2025 documented as of this encounter Visit Diagnoses Diagnosis Low hemoglobin documented in this encounter Additional Health Concerns Assessment Noted Time PHQ-9 Depression Total Score: 11 04/24/ 025 11:09 AM EST documented as of this encounter Care Teams Home Lighting Adviser Relationship Specialty Start Date End Date Karime Olguin DO [address] [place] [address] PCP - General Family Medicine 03/11/18 documented as of this encounter
--- OUTSIDE RECORDS SUMMARY | 2024-07-30 12:07 | XMS_ITS | Encounter Summary ---
Author Organization [employer] Address [address] [facility] 7t [place] [address] Care Team Providers Care Photographic Printer Name Role Phone Karime Olguin DO Primary Care Provider + [phone] Encounter Details Date Type Department Care Team ([facility] st Contact Info) Description 01/29/2024 Telephone [facility] MEDICINE [address] [place] [address] Karime Olguin DO [address] [place] [address] Social History Tobacco Use Types Packs/Day Years [...] Description 07/31/2024 1:00 PM EDT Clinical Support [address] [address] Veronica Hendrickson, RN [address] [place] [address] 08/04/2024 9:30 AM EDT Immunization [address] [address] documented as of this encounter Visit Diagnoses Not on filedocumented in this encounter Additional Health Concerns Assessment Noted Time PHQ-9 Depression Total Score: 0 05/17/19 23 9:39 AM EST documented as of this encounter Care Teams Photographic Printer Relationship Specialty Start Date End Date Karime Olguin DO [address] [place] [address] PCP - General Family Medicine 03/11/18 documented as of this encounter
--- OUTSIDE RECORDS SUMMARY | 2024-07-30 12:07 | XMS_ITS | Encounter Summary ---
Author Organization [employer] Address [address] [place] [address] 7 [place] [address] Care Team Providers Care Tree Girdler Name Role Phone Karime Olguin DO Primary Care Provider Encounter Details Date Type Department Care Team (Late Contact Info) Description 10/05/2022 Orders Only [facility] MEDICINE [address] [place] [address] [phone] Karime Olguin DO [address] [place] [address] [phone] Social History Tobacco Use Types Packs/Day Years [...] Encounters Date Type Department Care Team (Late Contact Info) Description 07/31/2024 1:00 PM EDT Clinical Support [facility] MEDICINE [address] [place] [address] Veronica Hendrickson, JULIA [address] [place] [address] 08/04/2024 9:30 AM EDT Immunization [facility] [address] [place] [address] documented as of this encounter Visit Diagnoses Not on filedocumented in this encounter Additional Health Concerns Assessment Noted Time PHQ-9 Depression Total Score: 0 05/17/19 23 9:39 AM EST documented as of this encounter Care Teams Tree Girdler Relationship Specialty Start Date End Date Karime Olguin DO [address] [place] [address] PCP - General Family Medicine 03/11/18 documented as of this encounter
--- OUTSIDE RECORDS SUMMARY | 2024-07-30 12:07 | XMS_ITS | Encounter Summary ---
Author Organization [employer] Address [address] [facility] [address] 7t [place] [address] Care Team Providers Care Dancing Instructor Name Role Phone BalKarime noriega Primary Care Provider + [phone] Reason for Visit * Reason Comments Med Refill Encounter Details Date Type Department Care Team ([facility] st Contact Info) Description 10/07/2023 Refill [facility] [address] [place] [address] David Lopez MD [address] [place] [address] Social History Tobacco Use Types Packs/Day Years [...] Description 07/31/2024 1:00 PM EDT Clinical Support [facility] [address] [place] [address] Veronica Hendrickson, RN [address] [place] [address] 08/04/2024 9:30 AM EDT Immunization [address] [address] documented as of this encounter Visit Diagnoses Not on filedocumented in this encounter Additional Health Concerns Assessment Noted Time PHQ-9 Depression Total Score: 0 05/17/19 9:39 AM EST documented as of this encounter Care Teams Dancing Instructor Relationship Specialty Start Date End Date Karime Olguin DO [address] [place] [address] PCP - General Family Medicine 03/11/18 documented as of this encounter
--- OUTSIDE RECORDS SUMMARY | 2024-07-30 12:07 | XMS_ITS | Encounter Summary ---
Author Organization [employer] Address [address] [place] [address] 7t [place] [address] Care Team Providers Care Archery Instructor Name Role Phone BalKarime noriega Primary Care Provider + [phone] Reason for Visit * Reason Comments Med Refill Encounter Details Date Type Department Care Team ([facility] st Contact Info) Description 01/27/2024 Refill [facility] MEDICINE [address] [place] [address] Isis Caban MD [address] [place] [address] Chronic neck pain Social History Tobacco Use [...] Description 07/31/2024 1:00 PM EDT Clinical Support [facility] MEDICINE [address] [place] [address] Veronica Hendrickson, JULIA [address] [place] [address] 08/04/2024 9:30 AM EDT Immunization [facility] MEDICINE [address] [place] [address] documented as of this encounter Visit Diagnoses Diagnosis Chronic neck pain Cervicalgia documented in this encounter Additional Health Concerns Assessment Noted Time PHQ-9 Depression Total Score: 0 05/17/19 23 9:39 AM EST documented as of this encounter Care Teams Archery Instructor Relationship Specialty Start Date End Date Karime Olguin DO [address] [place] [address] PCP - General Family Medicine 03/11/18 documented as of this encounter
--- OUTSIDE RECORDS SUMMARY | 2024-07-30 12:07 | XMS_ITS | Encounter Summary ---
Author Organization [employer] Address [address] [facility] 7t [place] [address] Care Team Providers Care Deputy Fire Chief Name Role Phone ClauKarime Primary Care Provider + [phone] Reason for Visit * Reason Comments Med Refill Encounter Details Date Type Department Care Team ([facility] st Contact Info) Description 03/05/2024 Refill [facility] [address] [place] [address] David Lopez MD [address] [place] [address] Social History Tobacco Use Types Packs/Day Years [...] Description 07/31/2024 1:00 PM EDT Clinical Support [facility] MEDICINE [address] [place] [address] Veronica Hendrickson, RN [address] [place] [address] 08/04/2024 9:30 AM EDT Immunization [facility] MEDICINE [address] [place] [address] documented as of this encounter Visit Diagnoses Not on filedocumented in this encounter Additional Health Concerns Assessment Noted Time PHQ-9 Depression Total Score: 0 05/17/19 23 9:39 AM EST documented as of this encounter Care Teams Deputy Fire Chief Relationship Specialty Start Date End Date Karime Olguin DO [address] [place] [address] PCP - General Family Medicine 03/11/18 documented as of this encounter
--- OUTSIDE RECORDS SUMMARY | 2024-07-30 12:07 | XMS_ITS | Encounter Summary ---
Author Organization [employer] Address [address] [facility] 7 [place] [address] Care Team Providers Care Family Educator Name Role Phone Karime Olguin DO Primary Care Provider + [phone] Reason for Visit * Reason Onset Date Comments Results 07/29/2024 Encounter Details Date Type Department Care Team ([facility] Contact Info) Description 07/29/2024 Telephone [facility] MEDICINE [address] [place] [address] Karime Olguin DO [address] [place] [address] Results Social History Tobacco Use Types Packs/Day [...] Encounter - Winnie Stratton RN - 07/29/2024 4:18 PM EDT TC placed to patient [phone] to inform of below message. Patient verbalized understanding and reports she will come to the lab tomorrow. Patient is aware she will be contacted with results once available. Patient to f/u PRN. * Telephone Encounter - Winnie Stratton RN - 07/29/2024 9:58 AM EDT RN reviewed BW results with PCP. BW returned showing a decrease in hemoglobin from 13.1 to 11.9. RNattempted to add on an iron and ferritin (see TC note 07/24/24) however lab did not pull the order and it was not completed. The lab no longer has the specimen. PCP would like patient to return to thelab to complete iron and ferritin panel to determine possible cause of anemia. Patient also needs daily vitamin D. TC placed to patient [phone] to inform of above message however patient did not answer. RN left requesting CB to red team nurses. RN will re-attempt in PM. documented in this encounter Plan of Treatment Upcoming Encounters Date Type Department Care Team (Late st Contact Info) Description 07/31/2024 1:00 PM EDT Clinical Support [facility] [address] [place] [address] Veronica Hendrickson, RN [address] [place] [address] 08/04/2024 9:30 AM EDT Immunization [facility] [address] [place] [address] documented as of this encounter Visit Diagnoses Not on filedocumented in this encounter Additional Health Concerns Assessment Noted Time PHQ-9 Depression Total Score: 11 04/24/ 025 11:09 AM EST documented as of this encounter Care Teams Family Educator Relationship Specialty Start Date End Date Karime Olguin DO [address] [place] [address] PCP - General Family Medicine 03/11/18 documented as of this encounter
[2024-07-30 13:41] LABS: Iron 37 mcg/dL (30-160); Percent Iron Saturation 12 % (15-50); Total Iron Binding Capacity 306 mcg/dL (228-428); Unsaturated Iron Binding 269 ug/dL
[2024-07-30 14:00] LABS: Ferritin 6 ng/mL (10-122)
== END 2024-07-30 11:30 | disposition home or self-care (01) ==
LOC: HO.HHCL 11:29
PROVIDERS: Visit Provider Family Medicine
DX: D64.9 Anemia, unspecified (principal)
CPT/HCPCS: 36415; 82728; 83540

== ENCOUNTER 2024-10-27 09:51 | Outpatient (AMB) | payer MEDICAID, SELFPAY ==
[2024-10-27 09:57] VITALS: BP 116/62; PULSE 87; BMI 26.7
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
--- OUTSIDE RECORDS SUMMARY | 2024-10-27 11:00 | XMS_ITS | Encounter Summary ---
Author Organization [employer] Address 75 [facility] 7 [place] [address] Care Team Providers Care Printed Circuit Board Assembly Repairer Name Role Phone Karime Olguin DO Primary Care Provider + [phone] Reason for Visit * Reason Onset Date Comments Med Refill 06/14/2023 Encounter Details Date Type Department Care Team ([facility] st Contact Info) Description 06/14/2023 Refill [facility] MEDICINE [address] [place] [address] Karime Olguin DO [address] [place] [address] Chronic neck pain Social History Tobacco Use [...] Care Team (Late st Contact Info) Description 12/04/2024 10:30 AM EDT Office Visit [facility] [address] [place] [address] Scottie Goodwin DDS [address] [place] [address] 01/07/2025 10:30 AM EDT Clinical Support [facility] [address] [place] [address] Jacqueline Abraham, JULIA documented as of this encounter Visit Diagnoses Diagnosis Chronic neck pain Cervicalgia documented in this encounter Additional Health Concerns Assessment Noted Time PHQ-9 Depression Total Score: 0 05/17/19 23 9:39 AM EST documented as of this encounter Care Teams Printed Circuit Board Assembly Repairer Relationship Specialty Start Date End Date Karmie Olguin DO [address] [place] [address] PCP - General Family Medicine 03/11/18 documented as of this encounter
--- OUTSIDE RECORDS SUMMARY | 2024-10-27 11:00 | XMS_ITS | Clinical Summary ---
Author Organization [facility] Address [address] [place] [address] [place] [address] Phone Care Team Providers Care Carbon Electrodes Supervisor Name Role Phone Karime Olguin DO Primary Care Provider Allergies Active Allergy Reactions Criticality Noted Date Comments Aspirin 12/22/2012 Cinnamon 12/22/2012 Ibuprofen Nausea Only 08/28/2022 Naproxen 08/09/2014 Other reaction(s): UPSET STOMACH Medications acetaminophen (TYLENOL) 650 MG CR tablet 4 Active VENTOLIN HFA 90 mcg/actuation inhaler INHALE 2 PUFFS BY MOUTH EVERY 4 HOURS NEEDED WHX Active fluticasone propionate (FLONASE) 50 mcg/actuation nasal spray 2 sprays. 4 Active gabapentin (NEURONTIN) 100 MG capsule Take 100 mg by mouth. 4 11/20/19 25 Active hydrOXYzine (VISTARIL) 25 MG capsule Take 25 mg by mouth every 6 (six) hours as needed. 4 Active methylPREDNISol one (MEDROL DOSEPACK) 4 mg tablet follow package directions 21 tablet 4 Active albuterol 90 mcg/actuation inhaler Inhale 2 puffs into the lungs every 6 (six) hours as needed for wheezing (With spacer please). 18 g 4 Active Active Problems No known active problems Social History Tobacco Use Types Packs/Day Years Used Date Smoking Tobacco: Never Smokeless Tobacco: Never Tobacco Cessation:Counseling Given: Not Answered Education Answer Date Recorded Are you interested in more education? Not on lucian e 12/28/2023 Are you concerned about learning? Not on file 12/28/2023 No 12/28/2023 No 12/28/2023 Digital Access Answer Date Recorded No 12/28/2023 No 12/28/2023 Reliable internet access at home? Not on file 12/28/2023 Device with a working camera? Not on file Comments Unknown Sex and Gender Information Value Date Recorded Sex Assigned at Not on file Legal Sex Female 11:08 AM EDT Gender Identity Not on file Sexual Orientation Not on file Last Filed Vital Signs Vital Sign Reading Time Taken Comments Blood Pressure 123/79 12/28/2023 2:07 PM EDT Pulse 64 12/28/2023 2:07 PM EDT Temperature 37.1 C (98.7 F) 12/28/2023 2:07 PM EDT Respiratory Rate 18 12/28/2023 2:07 PM EDT Oxygen Saturation 100% 12/28/2023 2:07 PM EDT Inhaled Oxygen Concentration - - Weight 65.8 kg (145 lb) 12/28/2023 2:07 PM EDT Height 157.5 cm (5' 2 ) 12/28/2023 2:07 PM EDT Body Mass Index 26.52 12/28/2023 2:07 PM EDT Plan of Treatment Health Maintenance Due Date Last Done Comments DEPRESSION SCREENING 2000 HEPATITIS C SCREENING 2006 HIV ONE-TIME SCREENING (18-6 5 YEARS) 2006 PAP SMEAR 2009 SCREENING FOR DIABETES 08/11/2023 COVID-19 VACCINE (2023-2 5 season) 2023 Adult Td,Tdap Booster 02/13/2029 02/13/2019 , 11/11/2015, 12/09/2009 PNEUMOCOCCAL VACCINES (0-49 years) Aged Out 12/29/2015 No longer eligible b ased on patient's age to complete this topic SMOKING STATUS SCREENING (On ce After 26 Yrs) Completed 12/28/2023 HEPATITIS A VACCINES Aged Out No long er eligible based on patient's age to complete this topic HIB VACCINES Aged Out No longer eligi ble based on patient's age to complete this topic MENINGOCOCCAL VACCINES (ACWY) Aged Out No longer eligible based on patient's age to complete this topic MENINGOCOCCAL VACCINES (B) Aged Out N o longer eligible based on patient's age to complete this topic Medical Devices Not on file Insurance C3 ACO C3 ACO C[address] [place] [address] [place] [address] C3 ACO Care Teams Carbon Electrodes Supervisor Relationship Specialty Start Date End Date Karime Olguin DO [address] [place] [address] PCP - General Family Medicine 12/28/23 Additional Source Comments The information contained in this document represents components of the legal health record. It is not the complete legal health record.[facility]
--- OUTSIDE RECORDS SUMMARY | 2024-10-27 11:00 | XMS_ITS | Patient Health Record ---
Author Organization [facility] Address [address] [place] [address] Care Team Providers Care Ticket Manager Name Role Phone Karime Olguin M.D. Primary Care Provider Yoana vailable Tapan Dumont Unavailable [phone] Reason For Referral No Information Plan Of Treatment No Information Insurance Providers Payer Name Payer Address Payer Phone Subscriber Number Group Number Insured Name Patient Relationship to Insured Coverage Start Date Coverage End Date MEDICAID OF [facility] [address] [place] [phone] [id number] INEZ HERRING Self - patient is the insured
--- OUTSIDE RECORDS SUMMARY | 2024-10-27 11:00 | XMS_ITS | Clinical Summary ---
[facility] Organization [facility] Address [address] [place] [address] Care Team Providers Care Solutions Architect Consultant Name Role Phone Unavailable Primary Care Provider [...] (P ap Smear) 2009 Influenza Vaccine (#1) 2024 Pneumococcal Vaccine Aged Out No long er eligible based on patient's age to complete this topic RSV Ped < 20 months Aged Out No longe r eligible based on patient's age to complete this topic
== END 2024-10-27 10:16 | disposition home or self-care (01) ==
PROVIDERS: PCP Family Medicine; Visit Provider Surgery
DX: L73.9 Follicular disorder, unspecified (principal); L98.9 Disorder of the skin and subcutaneous tissue, unspecified
CPT/HCPCS: 99204

== ENCOUNTER → 2024-10-27 09:51 | Outpatient (BNVA) | payer MEDICAID, SELFPAY | PROVIDERS: PCP Family Medicine; Visit Provider Surgery | DX: L73.8 Other specified follicular disorders (principal); L98.9 Disorder of the skin and subcutaneous tissue, unspecified | CPT/HCPCS: 99202 ==

== ENCOUNTER 2024-12-01 10:07 | Outpatient (REF) | payer MEDICAID, SELFPAY | END 2024-12-01 10:08 | disposition home or self-care (01) | LOC: HO.LNP 10:07 | PROVIDERS: PCP Family Medicine; Visit Provider Surgery | DX: L98.9 Disorder of the skin and subcutaneous tissue, unspecified (principal) | CPT/HCPCS: 11401; 11402; 88305 ==

== ENCOUNTER 2024-12-01 10:07 | Outpatient (AMB) | payer MEDICAID, SELFPAY ==
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
[2024-12-01 10:23] VITALS: BMI 26.6
--- OUTSIDE RECORDS SUMMARY | 2024-12-01 12:17 | XMS_ITS | Encounter Summary ---
Author Organization [employer] Address [address] [facility] 7t [place] [address] Care Team Providers Care Institutional Asset Manager Name Role Phone Karime Olguin DO Primary Care Provider + [phone] Reason for Visit * Reason Comments Med Refill Encounter Details Date Type Department Care Team ([facility] st Contact Info) Description 05/18/2024 Refill [facility] MEDICINE [address] [place] [address] Karime Olguin DO [address] [place] [address] Chronic neck pain Social History Tobacco Use [...] Care Team (Late st Contact Info) Description 12/02/2024 2:00 PM EDT Office Visit [facility] ADULT DENTAL [address] [place] [address] Peri Villanueva [address] [place] [address] 01/07/2025 10:30 AM EDT Clinical Support [facility] MEDICINE [address] [place] [address] Jacqueline Abraham RN documented as of this encounter Visit Diagnoses Diagnosis Chronic neck pain Cervicalgia documented in this encounter Additional Health Concerns Assessment Noted Time PHQ-9 Depression Total Score: 11 025 11:09 AM EST documented as of this encounter Care Teams Institutional Asset Manager Relationship Specialty Start Date End Date Karime Olguin DO [address] [place] [address] PCP - General Family Medicine 03/11/18 documented as of this encounter
--- OUTSIDE RECORDS SUMMARY | 2024-12-01 12:17 | XMS_ITS | Encounter Summary ---
Author Organization [employer] Address [address] [facility] 7 [place] [address] Care Team Providers Care Director Nicu Name Role Phone Karime Olguin DO Primary Care Provider + [phone] Reason for Visit * Reason Onset Date Comments Med Refill 06/14/2023 Encounter Details Date Type Department Care Team ([facility] st Contact Info) Description 06/14/[address] [facility] MEDICINE [address] [place] [address] Karime Olguin DO [address] [place] [address] Chronic neck pain Social History Tobacco Use [...] Description 12/02/2024 2:00 PM EDT Office Visit [facility] ADULT DENTAL [address] [place] [address] Peri Villanueva [address] [place] [address] 01/07/2025 10:30 AM EDT Clinical Support [facility] MEDICINE [address] [place] [address] Jacqueline Abraham, JULIA documented as of this encounter Visit Diagnoses Diagnosis Chronic neck pain Cervicalgia documented in this encounter Additional Health Concerns Assessment Noted Time PHQ-9 Depression Total Score: 0 05/17/19 23 9:39 AM EST documented as of this encounter Care Teams Director Nicu Relationship Specialty Start Date End Date Karime Olguin DO [address] [place] [address] PCP - General Family Medicine 03/11/18 documented as of this encounter
--- OUTSIDE RECORDS SUMMARY | 2024-12-01 12:17 | XMS_ITS | Encounter Summary ---
Author Organization [employer] Address [address] [facility] 7 [place] [address] Care Team Providers Care Coat Agent Name Role Phone Karime Olguin DO Primary Care Provider + [phone] Reason for Visit * Reason Onset Date Comments Med Refill 05/18/2024 Encounter Details Date Type Department Care Team ([facility] st Contact Info) Description 05/18/2024 Refill [facility] MEDICINE [address] [place] [address] Karime Olguin DO [address] [place] [address] Chronic neck pain Social History Tobacco Use [...] Description 12/02/2024 2:00 PM EDT Office Visit [facility] ADULT DENTAL [address] [place] [address] Peri Villanueva [address] [place] [address] 01/07/2025 10:30 AM EDT Clinical Support [facility] MEDICINE [address] [place] [address] Jacqueline Abraham RN documented as of this encounter Visit Diagnoses Diagnosis Chronic neck pain Cervicalgia documented in this encounter Additional Health Concerns Assessment Noted Time PHQ-9 Depression Total Score: 11 025 11:09 AM EST documented as of this encounter Care Teams Coat Agent Relationship Specialty Start Date End Date Karime Olguin DO [address] [place] [address] PCP - General Family Medicine 03/11/18 documented as of this encounter
--- OUTSIDE RECORDS SUMMARY | 2024-12-01 12:17 | XMS_ITS | Encounter Summary ---
Author Organization [employer] Address [address] [facility] 7t [place] [address] Care Team Providers Care Machine Puller Name Role Phone BalKarime noriega Primary Care Provider + [phone] Reason for Visit * Reason Onset Date Comments Med Refill 10/05/2024 Encounter Details Date Type Department Care Team ([facility] st Contact Info) Description 10/05/2024 Refill [facility] MEDICINE [address] [place] [address] Hawa Mota MD [address] [place] [address] Chronic neck pain Social History Tobacco Use [...] is your housing situation today? I have gennynaye bhatt 01/16/[address] you [...] Description 12/02/2024 2:00 PM EDT Office Visit [facility] ADULT DENTAL [address] [place] [address] Peri Villanueva [address] [place] [address] 01/07/2025 10:30 AM EDT Clinical Support [facility] MEDICINE [address] [place] [address] Jacqueline Abraham, JULIA documented as of this encounter Visit Diagnoses Diagnosis Chronic neck pain Cervicalgia documented in this encounter Additional Health Concerns Assessment Noted Time PHQ-9 Depression Total Score: 11 025 11:09 AM EST documented as of this encounter Care Teams Machine Puller Relationship Specialty Start Date End Date Karime Olguin DO [address] [place] [address] PCP - General Family Medicine 03/11/18 documented as of this encounter
--- OUTSIDE RECORDS SUMMARY | 2024-12-01 12:17 | XMS_ITS | Patient Health Record ---
Author Organization [facility] Address [address] [place] [address] Care Team Providers Care Machine Hamper Maker Name Role Phone Karime Olguin M.D. Primary Care Provider Yoana vailable Tapan Dumont Unavailable [phone] Reason For Referral No Information Plan Of Treatment No Information Insurance Providers Payer Name Payer Address Payer Phone Subscriber Number Group Number Insured Name Patient Relationship to Insured Coverage Start Date Coverage End Date MEDICAID OF [facility] [address] [place] [phone] [id number] INEZ HERRING Self - patient is the insured
--- OUTSIDE RECORDS SUMMARY | 2024-12-01 12:17 | XMS_ITS | Clinical Summary ---
[facility] Address [address] [place] [address] Care Team Providers Care Sous Chef Name Role Phone Unavailable Primary Care Provider [...]
--- OUTSIDE RECORDS SUMMARY | 2024-12-01 12:18 | XMS_ITS | Encounter Summary ---
Author Organization [employer] Address [address] [facility] 7t [place] [address] Care Team Providers Care Return Agent Name Role Phone Karime Olguin DO Primary Care Provider + [phone] Encounter Details Date Type Department Care Team ([facility] st Contact Info) Description 01/29/2024 Telephone [facility] MEDICINE [address] [place] [address] Karime Olguin DO [address] [place] [address] Social History Tobacco Use Types Packs/Day Years [...] Description 12/02/2024 2:00 PM EDT Office Visit [facility] ADULT DENTAL [address] [place] [address] Peri Villanueva [address] [place] [address] 01/07/2025 10:30 AM EDT Clinical Support [facility] MEDICINE [address] [place] [address] Jacqueline Abraham, JULIA documented as of this encounter Visit Diagnoses Not on filedocumented in this encounter Additional Health Concerns Assessment Noted Time PHQ-9 Depression Total Score: 0 05/17/19 23 9:39 AM EST documented as of this encounter Care Teams Return Agent Relationship Specialty Start Date End Date Karime Olguin DO [address] [place] [address] PCP - General Family Medicine 03/11/18 documented as of this encounter
--- OUTSIDE RECORDS SUMMARY | 2024-12-01 12:18 | XMS_ITS | Encounter Summary ---
Author Organization [employer] Address [address] [facility] 7t [place] [address] Care Team Providers Care Joy Loader Name Role Phone Karime Olguin DO Primary Care Provider + [phone] Reason for Visit * Reason Comments Med Refill Encounter Details Date Type Department Care Team ([facility] st Contact Info) Description 08/11/2024 Refill [facility] MEDICINE [address] [place] [address] Karime Olguin DO [address] [place] [address] Chronic neck pain Social History Tobacco Use [...] Description 12/02/2024 2:00 PM EDT Office Visit [facility] ADULT DENTAL [address] [place] [address] Peri Villanueva [address] [place] [address] 01/07/2025 10:30 AM EDT Clinical Support [facility] MEDICINE [address] [place] [address] Jacqueline Abraham RN documented as of this encounter Visit Diagnoses Diagnosis Chronic neck pain Cervicalgia documented in this encounter Additional Health Concerns Assessment Noted Time PHQ-9 Depression Total Score: 11 025 11:09 AM EST documented as of this encounter Care Teams Joy Loader Relationship Specialty Start Date End Date Karime Olguin DO [address] [place] [address] PCP - General Family Medicine 03/11/18 documented as of this encounter
--- OUTSIDE RECORDS SUMMARY | 2024-12-01 12:18 | XMS_ITS | Clinical Summary ---
Author Organization [facility] Address [address] [place] [address] [place] [address] Phone Care Team Providers Care Thermostat Mechanic Name Role Phone Karime Olguin DO Primary [...] capsule Take 100 mg by mouth. 4 Active hydrOXYzine (VISTARIL) 25 MG capsule Take [...] PAP SMEAR 2009 SCREENING FOR DIABETES 08/11/2023 INFLUENZA VACCINE (#1) 2024 COVID-19 VACCINE (2023-2 5 season) 2024 Adult Td,Tdap Booster 02/13/2029 02/13/2019 , 11/11/2015, [...] Insurance C3 ACO C3 ACO C3 ACO C[address] [address] [address] C3 ACO Care Teams Thermostat Mechanic Relationship Specialty Start Date End Date Karime Olguin DO [address] [place] [address] PCP - General Family Medicine 12/28/23 Additional Source Comments The information contained in this document represents components of the legal health record. It is not the complete legal health record.[facility]
--- OUTSIDE RECORDS SUMMARY | 2024-12-01 12:18 | XMS_ITS | Encounter Summary ---
Author Organization [employer] Address [address] [place] [address] 7 [place] [address] Care Team Providers Care Special Client Bus Driver Name Role Phone Karime Olguin DO Primary Care Provider [phone] Encounter Details Date Type Department Care Team (Late st Contact Info) Description 10/05/2022 Orders Only [facility] MEDICINE [address] [place], [place] [phone] Karime Olguin DO [address] [place] [address] Social History Tobacco Use Types Packs/Day Years [...] Description 12/02/2024 2:00 PM EDT Office Visit [facility] ADULT DENTAL [address] [place] [address] Peri Villanueva [address] [place] [address] 01/07/2025 10:30 AM EDT Clinical Support [facility] MEDICINE [address] [place] [address] Jacqueline Abraham RN documented as of this encounter Visit Diagnoses Not on filedocumented in this encounter Additional Health Concerns Assessment Noted Time PHQ-9 Depression Total Score: 0 05/17/19 23 9:39 AM EST documented as of this encounter Care Teams Special Client Bus Driver Relationship Specialty Start Date End Date Karime Olguin DO [address] [place] [address] PCP - General Family Medicine 03/11/18 documented as of this encounter
--- OUTSIDE RECORDS SUMMARY | 2024-12-01 12:18 | XMS_ITS | Encounter Summary ---
Author Organization [employer] Address [address] [facility] 7t [place] [address] Care Team Providers Care Logistics Planning Manager Name Role Phone Karime Olguin DO Primary Care Provider + [phone] Reason for Visit * Reason Comments Med Refill Encounter Details Date Type Department Care Team ([facility] st Contact Info) Description 2024 Refill [facility] MEDICINE [address] [place] [address] Karime Olguin DO [address] [place] [address] Chronic neck pain Social History Tobacco Use [...] Description 12/02/2024 2:00 PM EDT Office Visit [facility] ADULT DENTAL [address] [place] [address] Peri Villanueva [address] [place] [address] 01/07/2025 10:30 AM EDT Clinical Support [facility] MEDICINE [address] [place] [address] Jacqueline Abraham RN documented as of this encounter Visit Diagnoses Diagnosis Chronic neck pain Cervicalgia documented in this encounter Additional Health Concerns Assessment Noted Time PHQ-9 Depression Total Score: 11 025 11:09 AM EST documented as of this encounter Care Teams Logistics Planning Manager Relationship Specialty Start Date End Date Karime Olguin DO [address] [place] [address] PCP - General Family Medicine 03/11/18 documented as of this encounter
--- OUTSIDE RECORDS SUMMARY | 2024-12-01 12:18 | XMS_ITS | Encounter Summary ---
Author Organization [employer] Address [address] [facility] 7t [place] [address] Care Team Providers Care Repair Technician Name Role Phone Karime Olguin DO Primary Care Provider + [phone] Reason for Visit * Reason Comments Med Refill Encounter Details Date Type Department Care Team ([facility] st Contact Info) Description 08/11/2024 Refill [facility] MEDICINE [address] [place] [address] Karime Olguin DO [address] [place] [address] Chronic neck pain Social History Tobacco Use [...] Description 12/02/2024 2:00 PM EDT Office Visit [facility] ADULT DENTAL [address] [place] [address] Peri Villanueva [address] [place] [address] 01/07/2025 10:30 AM EDT Clinical Support [facility] MEDICINE [address] [place] [address] Jacqueline Abraham RN documented as of this encounter Visit Diagnoses Diagnosis Chronic neck pain Cervicalgia documented in this encounter Additional Health Concerns Assessment Noted Time PHQ-9 Depression Total Score: 11 025 11:09 AM EST documented as of this encounter Care Teams Repair Technician Relationship Specialty Start Date End Date Karime Olguin DO [address] [place] [address] PCP - General Family Medicine 03/11/18 documented as of this encounter
--- OUTSIDE RECORDS SUMMARY | 2024-12-01 12:18 | XMS_ITS | Encounter Summary ---
Author Organization [employer] Address [address] [facility] 7[address] [place] [address] Care Team Providers Care Revit Drafter Name Role Phone BalKarime noriega Primary Care Provider + [phone] Reason for Visit * Reason Comments Med Refill Encounter Details Date Type Department Care Team ([facility] st Contact Info) Description 01/27/2024 Refill [facility] MEDICINE [address] [place] [address] Isis Caban MD [address] [place] [address] Chronic neck pain Social History Tobacco Use [...] Description 12/02/2024 2:00 PM EDT Office Visit [facility] ADULT DENTAL [address] [place] [address] Peri Villanueva [address] [place] [address] 01/07/2025 10:30 AM EDT Clinical Support [facility] [address] [place] [address] Jacqueline Abraham RN documented as of this encounter Visit Diagnoses Diagnosis Chronic neck pain Cervicalgia documented in this encounter Additional Health Concerns Assessment Noted Time PHQ-9 Depression Total Score: 0 05/17/19 23 9:39 AM EST documented as of this encounter Care Teams Revit Drafter Relationship Specialty Start Date End Date Karime Olguin DO [address] [place] [address] PCP - General Family Medicine 03/11/18 documented as of this encounter
--- OUTSIDE RECORDS SUMMARY | 2024-12-01 12:18 | XMS_ITS | Encounter Summary ---
Author Organization [employer] Address [address] [facility] 7t [place] [address] Care Team Providers Care Grades 1 Thru 5 Teacher Name Role Phone BalKarime noriega Primary Care Provider + [phone] Reason for Visit * Reason Comments Med Refill Encounter Details Date Type Department Care Team ([facility] st Contact Info) Description 12/02/2023 Refill [facility] MEDICINE [address] [place] [address] Morena Boyd MD [address] [place] [address] Chronic neck pain Social History Tobacco Use [...] Description 12/02/2024 2:00 PM EDT Office Visit [facility] ADULT DENTAL [address] [place] [address] Peri Villanueva [address] [place] [address] 01/07/2025 10:30 AM EDT Clinical Support [facility] MEDICINE [address] [place] [address] Jacqueline Abraham, JULIA documented as of this encounter Visit Diagnoses Diagnosis Chronic neck pain Cervicalgia documented in this encounter Additional Health Concerns Assessment Noted Time PHQ-9 Depression Total Score: 0 05/17/19 23 9:39 AM EST documented as of this encounter Care Teams Grades 1 Thru 5 Teacher Relationship Specialty Start Date End Date Karime Olguin DO [address] [place] [address] PCP - General Family Medicine 03/11/18 documented as of this encounter
--- OUTSIDE RECORDS SUMMARY | 2024-12-01 12:18 | XMS_ITS | Encounter Summary ---
Author Organization [employer] Address [address] [facility] 7t [place] [address] Care Team Providers Care Diamond Setter Name Role Phone Karime Olguin DO Primary Care Provider + [phone] Reason for Visit * Reason Comments Med Refill Encounter Details Date Type Department Care Team ([facility] st Contact Info) Description 08/11/2024 Refill [facility] [address] [place] [address] Karime Olguin DO [address] [place] [address] Chronic neck pain Social History Tobacco Use [...] Description 12/02/2024 2:00 PM EDT Office Visit [facility] ADULT DENTAL [address] [place] [address] Peri Villanueva [address] [place] [address] 01/07/2025 10:30 AM EDT Clinical Support [facility] [address] [place] [address] Jacqueline Abraham RN documented as of this encounter Visit Diagnoses Diagnosis Chronic neck pain Cervicalgia documented in this encounter Additional Health Concerns Assessment Noted Time PHQ-9 Depression Total Score: 11 025 11:09 AM EST documented as of this encounter Care Teams Diamond Setter Relationship Specialty Start Date End Date Karime Olguin DO [address] [place] [address] PCP - General Family Medicine 03/11/18 documented as of this encounter
--- OUTSIDE RECORDS SUMMARY | 2024-12-01 12:18 | XMS_ITS | Encounter Summary ---
Author Organization [employer] Address [address] [facility] 7t [place] [address] Care Team Providers Care Delicatessen Manager Name Role Phone Karime Olguin DO Primary Care Provider + [phone] Reason for Visit * Reason Comments Med Refill Encounter Details Date Type Department Care Team ([facility] st Contact Info) Description 04/22/2024 Refill [facility] MEDICINE [address] [place] [address] Karime Olguin DO [address] [place] [address] Chronic neck pain Social History Tobacco Use [...] Questionnaire -2 Score 2 04/24/2024 11:09 AM Malbe [place] * Little interest or pleasure [...] Description 12/02/2024 2:00 PM EDT Office Visit [facility] ADULT DENTAL [address] [place] [address] Peri Villanueva [address] [place] [address] 01/07/2025 10:30 AM EDT Clinical Support [facility] MEDICINE [address] [place] [address] Jacqueline Abraham RN documented as of this encounter Visit Diagnoses Diagnosis Chronic neck pain Cervicalgia documented in this encounter Additional Health Concerns Assessment Noted Time PHQ-9 Depression Total Score: 0 05/17/19 23 9:39 AM EST documented as of this encounter Care Teams Delicatessen Manager Relationship Specialty Start Date End Date Karime Olguin DO [address] [place] [address] PCP - General Family Medicine 03/11/18 documented as of this encounter
--- OUTSIDE RECORDS SUMMARY | 2024-12-01 12:18 | XMS_ITS | Encounter Summary ---
Author Organization [employer] Address [address] [facility] 7 [place] [address] Care Team Providers Care Mortar Carrier Name Role Phone Karime Olguin DO Primary Care Provider + [phone] Reason for Visit * Reason Onset Date Comments Med Refill 11/26/2024 Encounter Details Date Type Department Care Team ([facility] st Contact Info) Description 11/26/2024 Refill [facility] MEDICINE [address] [place] [address] Karime Olguin DO [address] [place] [address] Chronic neck pain Social History Tobacco Use [...] Description 12/02/2024 2:00 PM EDT Office Visit [facility] ADULT DENTAL [address] [place] [address] Peri Villanueva [address] [place] [address] 01/07/2025 10:30 AM EDT Clinical Support [facility] MEDICINE [address] [place] [address] Jacqueline Abraham RN documented as of this encounter Visit Diagnoses Diagnosis Chronic neck pain Cervicalgia documented in this encounter Additional Health Concerns Assessment Noted Time PHQ-9 Depression Total Score: 11 025 11:09 AM EST documented as of this encounter Care Teams Mortar Carrier Relationship Specialty Start Date End Date Karime Olguin DO [address] [place] [address] PCP - General Family Medicine 03/11/18 documented as of this encounter
--- OUTSIDE RECORDS SUMMARY | 2024-12-01 12:18 | XMS_ITS | Encounter Summary ---
Author Organization [employer] Address [address] [facility] [address] [place] [address] Care Team Providers Care Grain Manager Name Role Phone BalKarime noriega Primary Care Provider + [phone] Reason for Visit * Reason Comments Med Refill Encounter Details Date Type Department Care Team ([facility] st Contact Info) Description 10/07/2023 Refill [facility] [address] [place] [address] David Lopez MD [address] [place] [address] Social History Tobacco Use Types Packs/Day Years [...] Description 12/02/2024 2:00 PM EDT Office Visit [facility] ADULT DENTAL [address] [place] [address] Peri Villanueva [address] [place] [address] 01/07/2025 10:30 AM EDT Clinical Support [facility] MEDICINE [address] [place] [address] Jacqueline Abraham, JULIA documented as of this encounter Visit Diagnoses Not on filedocumented in this encounter Additional Health Concerns Assessment Noted Time PHQ-9 Depression Total Score: 0 05/17/19 23 9:39 AM EST documented as of this encounter Care Teams Grain Manager Relationship Specialty Start Date End Date Karime Olguin DO [address] [place] [address] PCP - General Family Medicine 03/11/18 documented as of this encounter
--- OUTSIDE RECORDS SUMMARY | 2024-12-01 12:18 | XMS_ITS | Encounter Summary ---
Author Organization [employer] Address [address] [facility] 7t [place] [address] Care Team Providers Care Proposal Writer Name Role Phone BalKarime noriega Primary Care Provider + [phone] Reason for Visit * Reason Comments Med Refill Encounter Details Date Type Department Care Team ([facility] st Contact Info) Description 03/05/2024 Refill [facility] [address] [place] [address] David Lopez MD [address] [place] [address] Social History Tobacco Use Types Packs/Day Years [...] Description 12/02/2024 2:00 PM EDT Office Visit [facility] ADULT DENTAL [address] [place] [address] Peri Villanueva [address] [place] [address] 01/07/2025 10:30 AM EDT Clinical Support [facility] MEDICINE [address] [place] [address] Jacqueline Abraham, JULIA documented as of this encounter Visit Diagnoses Not on filedocumented in this encounter Additional Health Concerns Assessment Noted Time PHQ-9 Depression Total Score: 0 05/17/19 23 9:39 AM EST documented as of this encounter Care Teams Proposal Writer Relationship Specialty Start Date End Date Karime Olguin DO [address] [place] [address] PCP - General Family Medicine 03/11/18 documented as of this encounter
--- OUTSIDE RECORDS SUMMARY | 2024-12-01 12:18 | XMS_ITS | Encounter Summary ---
Author Organization [employer] Address [address] [facility] 7 [place] [address] Care Team Providers Care Lens Inserter Name Role Phone Karime Olguin DO Primary Care Provider + [phone] Reason for Visit * Reason Onset Date Comments Med Refill 03/21/2024 Encounter Details Date Type Department Care Team ([facility] st Contact Info) Description 03/21/2024 Refill [facility] MED[facility] [address] [place] [address] Karime Olguin DO [address] [place] [address] Chronic neck pain Social History Tobacco Use [...] 2:00 PM EDT Office Visit [facility] ADULT DENT[facility] [address] [place] [address] Peri Villanueva [address] [place] [address] 01/07/2025 10:30 AM EDT Clinical Support [facility] [address] [place] [address] Jacqueline Abraham RN documented as of this encounter Visit Diagnoses Diagnosis Chronic neck pain Cervicalgia documented in this encounter Additional Health Concerns Assessment Noted Time PHQ-9 Depression Total Score: 0 05/17/19 23 9:39 AM EST documented as of this encounter Care Teams Lens Inserter Relationship Specialty Start Date End Date Karime Olguin DO [address] [place] [address] PCP - General Family Medicine 03/11/18 documented as of this encounter
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
--- OUTSIDE RECORDS SUMMARY | 2024-12-01 12:18 | XMS_ITS | Encounter Summary ---
Author Organization [employer] Address [address] [facility] 7[address] [place] [address] Care Team Providers Care Independent Marketing Consultant Name Role Phone Karime Olguin DO Primary Care Provider + [phone] Reason for Visit * Reason Comments Med Refill Encounter Details Date Type Department Care Team ([facility] st Contact Info) Description 08/11/[address] [facility] MEDICINE [address] [place] [address] Karime Olguin DO [address] [place] [address] Chronic neck pain Social History Tobacco Use [...] 2:00 PM EDT Office Visit [facility] ADULT DENTAL [address] [place] [address] Peri Villanueva [address] [place] [address] 01/07/2025 10:30 AM EDT Clinical Support [facility] MEDICINE [address] [place] [address] Jacqueline Abraham RN documented as of this encounter Visit Diagnoses Diagnosis Chronic neck pain Cervicalgia documented in this encounter Additional Health Concerns Assessment Noted Time PHQ-9 Depression Total Score: 11 025 11:09 AM EST documented as of this encounter Care Teams Independent Marketing Consultant Relationship Specialty Start Date End Date Karime Olguin DO [address] [place] [address] PCP - General Family Medicine 03/11/18 documented as of this encounter
== END 2024-12-01 11:16 | disposition home or self-care (01) ==
LOC: HO.HGS 10:08
PROVIDERS: PCP Family Medicine; Visit Provider Surgery
DX: D22.5 Melanocytic nevi of trunk (principal)
CPT/HCPCS: 11401; 11402

== ENCOUNTER 2024-12-11 10:49 | Outpatient (AMB) | payer MEDICAID, SELFPAY ==
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
[2024-12-11 10:57] VITALS: BP 121/67; PULSE 89; BMI 26.9
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
--- OUTSIDE RECORDS SUMMARY | 2024-12-11 11:53 | XMS_ITS | Clinical Summary ---
Author Organization [facility] Address [address] [place] [address] Care Team Providers Care Network Support Manager Name Role Phone Unavailable Primary Care Provider [...]
--- OUTSIDE RECORDS SUMMARY | 2024-12-11 11:53 | XMS_ITS | Encounter Summary ---
Author Organization [employer] Address [address] [facility] 7 [place] [address] Care Team Providers Care Fortune Teller Name Role Phone Karime Olguin DO Primary Care Provider + [phone] Reason for Visit * Reason Onset Date Comments Med Refill 06/14/2023 Encounter Details Date Type Department Care Team ([facility] st Contact Info) Description 06/14/2023 Refill [facility] MEDICINE [address] [place] [address] Karime Olguin DO [address] [place] [address] Chronic neck pain Social History Tobacco Use [...] Care Team (Late st Contact Info) Description 01/07/2025 10:30 AM EDT Clinical Support [facility] MEDICINE [address] [place] [address] Jacqueline Abraham, RN 01/08/2025 2:00 PM EDT Office Visit [facility] ADULT DENTAL [address] [place] [address] Mario Thomas DDS [address] [place] [address] documented as of this encounter Visit Diagnoses Diagnosis Chronic neck pain Cervicalgia documented in this encounter Additional Health Concerns Assessment Noted Time PHQ-9 Depression Total Score: 0 05/17/19 23 9:39 AM EST documented as of this encounter Care Teams Fortune Teller Relationship Specialty Start Date End Date Karime Olguin DO [address] [place] [address] PCP - General Family Medicine 03/11/18 documented as of this encounter
--- OUTSIDE RECORDS SUMMARY | 2024-12-11 11:53 | XMS_ITS | Encounter Summary ---
Author Organization [employer] Address [address] [facility] 7t [place] [address] Care Team Providers Care Frame Carver Spindle Name Role Phone BalKarime noriega Primary Care Provider [phone] Reason for Visit * Reason Onset Date Comments Med Refill 10/05/2024 Encounter Details Date Type Department Care Team ([facility] st Contact Info) Description 10/05/2024 Refill [facility] MEDICINE [address] [place] [address] Hawa Mota MD [address] [place] [address] Chronic neck pain Social History Tobacco Use [...] Description 01/07/2025 10:30 AM EDT Clinical Support [facility] MEDICINE [address] [place] [address] Jacqueline Abraham, RN 01/08/2025 2:00 PM EDT Office Visit [facility] ADULT DENTAL [address] [place] [address] Mario Thomas DDS [address] [place] [address] documented as of this encounter Visit Diagnoses Diagnosis Chronic neck pain Cervicalgia documented in this encounter Additional Health Concerns Assessment Noted Time PHQ-9 Depression Total Score: 11 025 11:09 AM EST documented as of this encounter Care Teams Frame Carver Spindle Relationship Specialty Start Date End Date Karime Olguin DO [address] [place] [address] PCP - General Family Medicine 03/11/18 documented as of this encounter
--- OUTSIDE RECORDS SUMMARY | 2024-12-11 11:54 | XMS_ITS | Encounter Summary ---
Author Organization [employer] Address [address] [facility] 7t [place] [address] Care Team Providers Care Production Supply Equipment Tender Name Role Phone Karime Olguin DO Primary Care Provider + [phone] Reason for Visit * Reason Comments Med Refill Encounter Details Date Type Department Care Team ([facility] st Contact Info) Description 2024 Refill [facility] MEDICINE [address] [place] [address] Karime Olguin DO [address] [place] [address] Chronic neck pain Social History Tobacco Use [...] Description 01/07/2025 10:30 AM EDT Clinical Support [facility] MEDICINE [address] [place] [address] Jacqueline Abraham, RN 01/08/2025 2:00 PM EDT Office Visit [facility] ADULT DENTAL [address] [place] [address] Mario Thomas DDS [address] [place] [address] documented as of this encounter Visit Diagnoses Diagnosis Chronic neck pain Cervicalgia documented in this encounter Additional Health Concerns Assessment Noted Time PHQ-9 Depression Total Score: 11 025 11:09 AM EST documented as of this encounter Care Teams Production Supply Equipment Tender Relationship Specialty Start Date End Date Karime Olguin DO [address] [place] [address] PCP - General Family Medicine 03/11/18 documented as of this encounter
--- OUTSIDE RECORDS SUMMARY | 2024-12-11 11:54 | XMS_ITS | Encounter Summary ---
Author Organization [employer] Address [address] [facility] 7t [place] [address] Care Team Providers Care Fountain Server Name Role Phone BalKarime noriega Primary Care Provider + [phone] Reason for Visit * Reason Comments Med Refill Encounter Details Date Type Department Care Team ([facility] st Contact Info) Description 03/05/2024 Refill [facility] [address] [place] [address] David Lopez MD [address] [place] [address] Social History Tobacco Use Types Packs/Day Years [...] Description 01/07/2025 10:30 AM EDT Clinical Support [facility] MEDICINE [address] [place] [address] Jacqueline Abraham RN 01/08/2025 2:00 PM EDT Office Visit [facility] ADULT DENTAL [address] [place] [address] Mario Thomas DDS [address] [place] [address] documented as of this encounter Visit Diagnoses Not on filedocumented in this encounter Additional Health Concerns Assessment Noted Time PHQ-9 Depression Total Score: 0 05/17/19 23 9:39 AM EST documented as of this encounter Care Teams Fountain Server Relationship Specialty Start Date End Date Karime Olguin DO [address] [place] [address] PCP - General Family Medicine 03/11/18 documented as of this encounter
--- OUTSIDE RECORDS SUMMARY | 2024-12-11 11:54 | XMS_ITS | Encounter Summary ---
Author Organization [employer] Address [address] [facility] 7t [place] [address] Care Team Providers Care Smokehouse Operator Name Role Phone Karime Olguin DO Primary Care Provider + [phone] Encounter Details Date Type Department Care Team ([facility] st Contact Info) Description 01/29/2024 Telephone [facility] MEDICINE [address] [place] [address] Karime Olguin DO [address] [place] [address] Social History Tobacco Use Types Packs/Day Years [...] Description 01/07/2025 10:30 AM EDT Clinical Support [facility] MEDICINE [address] [place] [address] Jacqueline Abraham, RN 01/08/2025 2:00 PM EDT Office Visit [facility] ADULT DENTAL [address] [place] [address] Mario Thomas DDS [address] [place] [address] documented as of this encounter Visit Diagnoses Not on filedocumented in this encounter Additional Health Concerns Assessment Noted Time PHQ-9 Depression Total Score: 0 05/17/19 23 9:39 AM EST documented as of this encounter Care Teams Smokehouse Operator Relationship Specialty Start Date End Date Karime Olguin DO [address] [place] [address] PCP - General Family Medicine 03/11/18 documented as of this encounter
--- OUTSIDE RECORDS SUMMARY | 2024-12-11 11:54 | XMS_ITS | Encounter Summary ---
Author Organization [employer] Address [address] [facility] [address] 7[address] [place] [address] Care Team Providers Care Incoming Inspector Name Role Phone BalKarime noriega Primary Care Provider + [phone] Reason for Visit * Reason Comments Med Refill Encounter Details Date Type Department Care Team ([facility] st Contact Info) Description 10/07/2023 Refill [facility] [address] [place] [address] David Lopez MD [address] [place] [address] Social History Tobacco Use Types Packs/Day Years [...] Support [facility] MEDICINE [address] [place] [address] Jacqueline Abraham, RN 01/08/2025 2:00 PM EDT Office Visit [facility] ADULT DENTAL [address] [place] [address] Mario Thomas DDS [address] [place] [address] documented as of this encounter Visit Diagnoses Not on filedocumented in this encounter Additional Health Concerns Assessment Noted Time PHQ-9 Depression Total Score: 0 05/17/19 23 9:39 AM EST documented as of this encounter Care Teams Incoming Inspector Relationship Specialty Start Date End Date Karime Olguin DO [address] [place] [address] PCP - General Family Medicine 03/11/18 documented as of this encounter
--- OUTSIDE RECORDS SUMMARY | 2024-12-11 11:54 | XMS_ITS | Encounter Summary ---
Author Organization [employer] Address [address] [facility] 7 [place] [address] Care Team Providers Care Landscape Contractor Name Role Phone Karime Olguin DO Primary Care Provider + [phone] Reason for Visit * Reason Onset Date Comments Med Refill 03/21/2024 Encounter Details Date Type Department Care Team ([facility] st Contact Info) Description 03/21/2024 Refill [facility] MEDICINE [address] [place] [address] Karime Olguin DO [address] [place] [address] Chronic neck pain Social History Tobacco Use [...] Description 01/07/2025 10:30 AM EDT Clinical Support [facility] MEDICINE [address] [place] [address] Jacqueline Abraham RN 01/08/2025 2:00 PM EDT Office Visit [facility] ADULT DENTAL [address] [place] [address] Mario Thomas DDS [address] [place] [address] documented as of this encounter Visit Diagnoses Diagnosis Chronic neck pain Cervicalgia documented in this encounter Additional Health Concerns Assessment Noted Time PHQ-9 Depression Total Score: 0 05/17/19 23 9:39 AM EST documented as of this encounter Care Teams Landscape Contractor Relationship Specialty Start Date End Date Karime Olguin DO [address] [place] [address] PCP - General Family Medicine 03/11/18 documented as of this encounter
--- OUTSIDE RECORDS SUMMARY | 2024-12-11 11:54 | XMS_ITS | Encounter Summary ---
Author Organization [employer] Address [address] [facility] 7t [place] [address] Care Team Providers Care Real Estate Loan Officer Name Role Phone Karime Olguin DO Primary Care Provider + [phone] Reason for Visit * Reason Comments Med Refill Encounter Details Date Type Department Care Team ([facility] st Contact Info) Description 05/18/2024 Refill [facility] MEDICINE [address] [place] [address] Karime Olguin DO [address] [place] [address] Chronic neck pain Social History Tobacco Use [...] Description 01/07/2025 10:30 AM EDT Clinical Support [facility] MEDICINE [address] [place] [address] Jacqueline Abraham, RN 01/08/2025 2:00 PM EDT Office Visit [facility] ADULT DENTAL [address] [place] [address] Mario Thomas DDS [address] [place] [address] documented as of this encounter Visit Diagnoses Diagnosis Chronic neck pain Cervicalgia documented in this encounter Additional Health Concerns Assessment Noted Time PHQ-9 Depression Total Score: 11 025 11:09 AM EST documented as of this encounter Care Teams Real Estate Loan Officer Relationship Specialty Start Date End Date Karime Olguin DO [address] [place] [address] PCP - General Family Medicine 03/11/18 documented as of this encounter
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
--- OUTSIDE RECORDS SUMMARY | 2024-12-11 11:54 | XMS_ITS | Encounter Summary ---
Author Organization [employer] Address [address] [facility] 7t [place] [address] Care Team Providers Care Oil Field Worker Name Role Phone BalKarime noriega Primary Care Provider + [phone] Reason for Visit * Reason Comments Med Refill Encounter Details Date Type Department Care Team ([facility] st Contact Info) Description 01/27/2024 Refill [facility] [address] [place] [address] Isis Caban MD [address] [place] [address] Chronic neck pain Social History Tobacco Use [...] Description 01/07/2025 10:30 AM EDT Clinical Support [facility] [address] [place] [address] Jacqueline Abraham RN 01/08/2025 2:00 PM EDT Office Visit [facility] ADULT DENTAL [address] [place] [address] Mario Thomas DDS [address] [place] [address] documented as of this encounter Visit Diagnoses Diagnosis Chronic neck pain Cervicalgia documented in this encounter Additional Health Concerns Assessment Noted Time PHQ-9 Depression Total Score: 0 05/17/19 23 9:39 AM EST documented as of this encounter Care Teams Oil Field Worker Relationship Specialty Start Date End Date Karime Olguin DO [address] [place] [phone] PCP - General Family Medicine 03/11/18 documented as of this encounter
--- OUTSIDE RECORDS SUMMARY | 2024-12-11 11:54 | XMS_ITS | Encounter Summary ---
Author Organization [employer] Address [address] [facility] 7t [place] [address] Care Team Providers Care Prepress Technician Name Role Phone Karime Olguin DO Primary Care Provider + [phone] Reason for Visit * Reason Comments Med Refill Encounter Details Date Type Department Care Team ([facility] st Contact Info) Description 04/22/2024 Refill [facility] [address] [place] [address] Karime Olguin DO [address] [place] [address] Chronic neck pain Social History Tobacco Use [...] Description 01/07/2025 10:30 AM EDT Clinical Support [facility] [address] [facility] [place] [address] Jacqueline Abraham, RN 01/08/2025 2:00 PM EDT Office Visit [facility] ADULT DENTAL [address] [place], [place] [phone] Mario Thomas DDS [address] [place] [address] documented as of this encounter Visit Diagnoses Diagnosis Chronic neck pain Cervicalgia documented in this encounter Additional Health Concerns Assessment Noted Time PHQ-9 Depression Total Score: 0 05/17/19 23 9:39 AM EST documented as of this encounter Care Teams Prepress Technician Relationship Specialty Start Date End Date Karime Olguin DO [address] [place] [address] PCP - General Family Medicine 03/11/18 documented as of this encounter
--- OUTSIDE RECORDS SUMMARY | 2024-12-11 11:54 | XMS_ITS | Encounter Summary ---
Author Organization [employer] Address [address] [facility] 7 [place] [address] Care Team Providers Care Bolting Machine Operator Name Role Phone Karime Olguin DO Primary Care Provider + [phone] Reason for Visit * Reason Onset Date Comments Med Refill 05/18/2024 Encounter Details Date Type Department Care Team ([facility] st Contact Info) Description 05/18/2024 Refill [facility] [address] [place] [address] Karime Olguin DO [address] [place] [address] Chronic neck pain Social History Tobacco Use [...] 10:30 AM EDT Clinical Support [facility] [address] [place] [address] Jacqueline Abraham, RN 01/08/2025 2:00 PM EDT Office Visit [facility] ADULT DENTAL [address] [place] [address] Mario Thomas DDS [address] [place] [address] documented as of this encounter Visit Diagnoses Diagnosis Chronic neck pain Cervicalgia documented in this encounter Additional Health Concerns Assessment Noted Time PHQ-9 Depression Total Score: 11 025 11:09 AM EST documented as of this encounter Care Teams Bolting Machine Operator Relationship Specialty Start Date End Date Karime Olguin DO [address] [place] [address] PCP - General Family Medicine 03/11/18 documented as of this encounter
--- OUTSIDE RECORDS SUMMARY | 2024-12-11 11:54 | XMS_ITS | Encounter Summary ---
Author Organization [employer] Address [address] [facility] 7t [place] [address] Care Team Providers Care Meat Counter Worker Name Role Phone BalKarime noriega Primary Care Provider + [phone] Reason for Visit * Reason Comments Med Refill Encounter Details Date Type Department Care Team ([facility] st Contact Info) Description 12/02/2023 Refill [facility] [address] [place] [address] Morena Boyd MD [address] [place] [address] Chronic neck pain Social History Tobacco Use [...] Description 01/07/2025 10:30 AM EDT Clinical Support [facility] [address] [place] [address] Jacqueline Abraham, RN 01/08/2025 2:00 PM EDT Office Visit [facility] ADULT DENTAL [address] [place] [address] Mario Tohmas DDS [address] [place] [address] documented as of this encounter Visit Diagnoses Diagnosis Chronic neck pain Cervicalgia documented in this encounter Additional Health Concerns Assessment Noted Time PHQ-9 Depression Total Score: 0 05/17/19 23 9:39 AM EST documented as of this encounter Care Teams Meat Counter Worker Relationship Specialty Start Date End Date Karime Olguin DO [address] [place] [address] PCP - General Family Medicine 03/11/18 documented as of this encounter
--- OUTSIDE RECORDS SUMMARY | 2024-12-11 11:54 | XMS_ITS | Patient Health Record ---
Author Organization [facility] Address [address] [place] [address] Care Team Providers Care Manager Corporate Strategy Name Role Phone Karime Olguin M.D. Primary Care Provider Yoana vailable Tapan Dumont Unavailable [phone] Reason For Referral No Information Plan Of Treatment No Information Insurance Providers Payer Name Payer Address Payer Phone Subscriber Number Group Number Insured Name Patient Relationship to Insured Coverage Start Date Coverage End Date MEDICAID OF [facility] [address] [place] [phone] [id number] [employer] Self - patient is the insured
--- OUTSIDE RECORDS SUMMARY | 2024-12-11 11:54 | XMS_ITS | Encounter Summary ---
Author Organization [employer] Address [address] [facility] 7t [place] [address] Care Team Providers Care Baseball Player Name Role Phone Karime Olguin DO Primary Care Provider + [phone] Reason for Visit * Reason Comments Med Refill Encounter Details Date Type Department Care Team ([facility] st Contact Info) Description 08/11/2024 Refill [facility] MEDICINE [address] [place] [address] Karime Olguin DO [address] [place] [address] Chronic neck pain Social History Tobacco Use [...] Description 01/07/2025 10:30 AM EDT Clinical Support [facility] MEDICINE [address] [place] [address] Jacqueline Abraham, RN 01/08/2025 2:00 PM EDT Office Visit [facility] ADULT DENTAL [address] [place] [address] Mario Thomas DDS [address] [place] [address] documented as of this encounter Visit Diagnoses Diagnosis Chronic neck pain Cervicalgia documented in this encounter Additional Health Concerns Assessment Noted Time PHQ-9 Depression Total Score: 11 025 11:09 AM EST documented as of this encounter Care Teams Baseball Player Relationship Specialty Start Date End Date Karime Olguin DO [address] [place] [address] PCP - General Family Medicine 03/11/18 documented as of this encounter
--- OUTSIDE RECORDS SUMMARY | 2024-12-11 11:54 | XMS_ITS | Encounter Summary ---
Author Organization [employer] Address [address] [facility] 7t [place] [address] Care Team Providers Care Box Annealer Name Role Phone Karime Olguin DO Primary Care Provider + [phone] Reason for Visit * Reason Comments Med Refill Encounter Details Date Type Department Care Team ([facility] st Contact Info) Description 08/11/2024 Refill [facility] MEDICINE [address] [place] [address] Karime Olguin DO [address] [place] [address] Chronic neck pain Social History Tobacco Use [...] Description 01/07/2025 10:30 AM EDT Clinical Support [facility] MEDICINE [address] [place] [address] Jacqueline Abraham, RN 01/08/2025 2:00 PM EDT Office Visit [facility] ADULT DENTAL [address] [place] [address] Mario Thomas DDS [address] [place] [address] documented as of this encounter Visit Diagnoses Diagnosis Chronic neck pain Cervicalgia documented in this encounter Additional Health Concerns Assessment Noted Time PHQ-9 Depression Total Score: 11 025 11:09 AM EST documented as of this encounter Care Teams Box Annealer Relationship Specialty Start Date End Date Karime Olguin DO [address] [place] [address] PCP - General Family Medicine 03/11/18 documented as of this encounter
--- OUTSIDE RECORDS SUMMARY | 2024-12-11 11:54 | XMS_ITS | Encounter Summary ---
Author Organization [employer] Address [address] [facility] 7t [place] [address] Care Team Providers Care Hadoop Administrator Name Role Phone Karime Olguin DO Primary Care Provider + [phone] Reason for Visit * Reason Comments Med Refill Encounter Details Date Type Department Care Team ([facility] st Contact Info) Description 08/11/[address] [facility] MEDICINE [address] [place] [address] Karime Olguin DO [address] [place] [address] Chronic neck pain Social History Tobacco Use [...] Description 01/07/2025 10:30 AM EDT Clinical Support [facility] MEDICINE [address] [place] [address] Jacqueline Abraham, RN 01/08/2025 2:00 PM EDT Office Visit [facility] ADULT DENTAL [address] [place] [address] Mario Thomas DDS [address] [place] [address] documented as of this encounter Visit Diagnoses Diagnosis Chronic neck pain Cervicalgia documented in this encounter Additional Health Concerns Assessment Noted Time PHQ-9 Depression Total Score: 11 025 11:09 AM EST documented as of this encounter Care Teams Hadoop Administrator Relationship Specialty Start Date End Date Karime Olguin DO [address] [place] [address] PCP - General Family Medicine 03/11/18 documented as of this encounter
--- OUTSIDE RECORDS SUMMARY | 2024-12-11 11:54 | XMS_ITS | Encounter Summary ---
Author Organization [employer] Address [address] [facility] 7t [place] [address] Care Team Providers Care Outdoor Landscape Architect Name Role Phone Karime Olguin DO Primary Care Provider + [phone] Reason for Visit * Reason Comments Med Refill Encounter Details Date Type Department Care Team ([facility] st Contact Info) Description 08/11/2024 Refill [facility] MEDICINE [address] [place] [address] Karime Olguin DO [address] [place] [address] Chronic neck pain Social History Tobacco Use [...] Description 01/07/2025 10:30 AM EDT Clinical Support [facility] MEDICINE [address] [place] [address] Jacqueline Abraham, RN 01/08/2025 2:00 PM EDT Office Visit [facility] ADULT DENTAL [address] [place] [address] Mario Thomas DDS [address] [place] [address] documented as of this encounter Visit Diagnoses Diagnosis Chronic neck pain Cervicalgia documented in this encounter Additional Health Concerns Assessment Noted Time PHQ-9 Depression Total Score: 11 025 11:09 AM EST documented as of this encounter Care Teams Outdoor Landscape Architect Relationship Specialty Start Date End Date Karime Olguin DO [address] [place] [address] PCP - General Family Medicine 03/11/18 documented as of this encounter
--- OUTSIDE RECORDS SUMMARY | 2024-12-11 11:55 | XMS_ITS | Encounter Summary ---
Author Organization [employer] Address [address] [place] [address] [address] [place] [address] Care Team Providers Care Marine Pilot Name Role Phone Karime Olguin DO Primary Care Provider [phone] Encounter Details Date Type Department Care Team (Late Contact Info) Description 10/05/2022 Orders Only [facility] MEDICINE [address] [place] [phone] Karime Olguin DO [address] [place] [address] [phone] Social History Tobacco Use Types Packs/Day Years [...] Description 01/07/2025 10:30 AM EDT Clinical Support [facility] MEDICINE [address] [place] [phone] Jacqueline Abraham RN 01/08/2025 2:00 PM EDT Office Visit [facility] ADULT DENTAL [address] [place] [address] [phone] Mario Thomas DDS [address] [place] [address] documented as of this encounter Visit Diagnoses Not on filedocumented in this encounter Additional Health Concerns Assessment Noted Time PHQ-9 Depression Total Score: 0 05/17/19 23 9:39 AM EST documented as of this encounter Care Teams Marine Pilot Relationship Specialty Start Date End Date Karime Olguin DO [address] [place] [address] PCP - General Family Medicine 03/11/18 documented as of this encounter
== END 2024-12-11 11:12 | disposition home or self-care (01) ==
LOC: HO.HGS 10:50
PROVIDERS: PCP Family Medicine; Visit Provider Physician Assistant Surgical
DX: Z09 Encounter for follow-up examination after completed treatment for conditions other than malignant neoplasm (principal)
CPT/HCPCS: 99024

== ENCOUNTER → 2024-12-11 10:49 | Outpatient (BNVA) | payer MEDICAID, SELFPAY | PROVIDERS: PCP Family Medicine; Visit Provider Physician Assistant Surgical | DX: Z98.890 Other specified postprocedural states (principal); L98.9 Disorder of the skin and subcutaneous tissue, unspecified | CPT/HCPCS: 99212 ==

== ENCOUNTER 2025-01-25 12:12 | Outpatient (REF) | payer MEDICAID, SELFPAY ==
[2025-01-25 13:20] LABS: MANUAL DIFF FLAG NO
[2025-01-25 13:43] LABS: Hematocrit 39.1 % (37.0-47.0); Hemoglobin 12.8 g/dl (12.0-16.0); Imm Gran Abs Auto 0.03 X10*3/uL (0.00-0.03); Imm Gran Pct Auto 0.3 % (0.0-0.4); Lymphocytes Absolute Auto 2.3 X10*3/uL (1.2-4.9); Mean Corpuscular HGB Conc 32.7 g/dl (31.0-35.0); Mean Corpuscular Hemoglobin 31.4 pg (27.0-33.0); Mean Corpuscular Volume 95.8 fL (80.0-98.0); NRBC Abs Auto 0.000 X10*3/uL (0.0-0.012); NRBC Pct Auto 0.0 /100WBC (0.0-0.2); Platelet Count 358 X10*3/uL (160-400); Red Blood Count 4.08 X10*6/uL (4.20-5.50); White Blood Count 9.2 X10*3/uL (4.8-10.8)
[2025-01-25 13:53] LABS: Total Hemoglobin (HGBA1C) 2261.2730 umol/L
[2025-01-25 16:41] LABS: Alanine Aminotransferase 20 U/L (0-31); Albumin Level 4.6 g/dL (3.5-5.0); Alkaline Phosphatase 46 U/L (39-117); Anion Gap 10 (12-20); Aspartate Amino Transferase 24 U/L (5-31); Blood Urea Nitrogen 10 mg/dL (9-16); Calcium 9.3 mg/dL (8.4-10.2); Carbon Dioxide 27 mmol/L (22-29); Chloride 108 mmol/L (96-108); Cholesterol 187 mg/dL (<200); Estimated Glomerular Filt Rate > 60; HDL Cholesterol 67 mg/dL (>40); Iron 37 mcg/dL (30-160); Percent Iron Saturation 12 % (15-50); Potassium 4.1 mmol/L (3.3-5.1); Sodium 141 mmol/L (135-145); Total Iron Binding Capacity 305 mcg/dL (228-428); Total Protein 7.4 g/dL (6.5-8.0); Triglycerides 103 mg/dL (<150); Unsaturated Iron Binding 268 ug/dL
[2025-01-25 16:57] LABS: Ferritin 17 ng/mL (10-122); Free T4 (Free Thyroxine) 0.78 ng/dL (0.71-1.85); Thyroid Stimulating Hormone 1.20 uIU/mL (0.32-4.0)
[2025-01-25 17:23] LABS: Folate 14.2 ng/mL (> or = 4.0); Vitamin B12 490 pg/mL (200-900)
[2025-01-26 08:16] LABS: HBsAGNum1 0.42 S/CO (0.00-0.99); HIV Num 1 0.06 S/CO (0.00-0.99); Hepatitis B Surface Antigen Negative (Negative); ~HepC Num1 0.18 S/CO (0.00-0.79); ~Hepatitis B Surface Antibody REACTIVE (Nonreactive); ~Hepatitis C Antibody Nonreactive (Nonreactive)
== END 2025-01-25 12:13 | disposition home or self-care (01) ==
LOC: HO.HHCL 12:12
PROVIDERS: PCP Family Medicine; Visit Provider Family Medicine
DX: Z11.4 Encounter for screening for human immunodeficiency virus [HIV] (principal); Z11.59 Encounter for screening for other viral diseases; Z11.3 Encounter for screening for infections with a predominantly sexual mode of transmission; D64.9 Anemia, unspecified
CPT/HCPCS: 36415; 80048; 80061; 80076; 82306; 82607; 82728; 82746; 83036; 83540; 84439; 84443; 85025; 86592; 86706; 86803; 87340; 87389